=== PATIENT | female | born 1965 | race Caucasian/White ===

== ENCOUNTER → 2016-06-12 | Outpatient (CLI) | payer OTHER ==
[2016-06-12 09:58] LABS: Bilirubin, Delta 0.4 mg/dL (0.0-0.2); Total Bilirubin 0.6 mg/dL (0.2-1.3); Total Protein 7.2 g/dL (6.3-8.2)
--- NOTE | 2016-06-12 15:34 | NM ---
EXAMINATION TYPE: NM DatScan Brain SPECT DATE OF EXAM: 06/12/2016 2:43 PM COMPARISON: NONE HISTORY: TECHNIQUE: 10 drops of Lugol's solution was administered 1 hour prior to injection as a thyroid bloc macrina agent. After the administration of 4.4 mCi I-123 Ioflupane DaTscan. Images obtained [address] injection. SPECT images of the brain were acquired with axial and coronal reconstructions. FINDINGS: The axial SPECT images demonstrate normal background activity. Accounting for head tilt, t here appears to be slight asymmetrically blunted comma-shaped appearance of the left corpus striatum. IMPRESSION: Slightly blunted striatal activity on the left may indicate early changes of idiopathic P arkinson's disease or Parkinsonian syndrome.
== END | disposition home or self-care (01) ==
LOC: RADNMMAIN 09:12
PROVIDERS: ATTEND Psychiatry & Neurology Pain Medicine
DX: R25.1 Tremor, unspecified (principal); Z79.891 Long term (current) use of opiate analgesic
CPT/HCPCS: 80076; 82565; 78607; A9584

== ENCOUNTER → 2016-06-24 | Outpatient (CLI) | payer OTHER ==
[2016-06-24 12:08] LABS: Bilirubin, Delta 0.4 mg/dL (0.0-0.2); Total Bilirubin 0.6 mg/dL (0.2-1.3); Total Protein 6.8 g/dL (6.3-8.2)
[2016-06-24 12:10] LABS: CH 31.7; CHCM 32.7; HCT 36.6 % (34.0-46.0); HDW 2.92; HGB 12.1 gm/dL (11.4-16.0); MCH 32.1 pg (25.0-35.0); MCV 97.3 fL (80.0-100.0); Mean Platelet Volume 7.1; RBC 3.76 m/uL (3.80-5.40); RDW 13.2 % (11.5-15.5); WBC 3.9 k/uL (3.8-10.6)
[2016-06-24 12:32] LABS: Prothrombin Time 10.4 sec (9.0-12.0)
[2016-06-27 15:03] LABS: HCV Qualitative Result DETECTED (Not detected)
== END | disposition home or self-care (01) ==
LOC: LABWHC1 11:12
PROVIDERS: ATTEND Physician Assistant
DX: B18.2 Chronic viral hepatitis C (principal)
CPT/HCPCS: 36415; 80076; 82565; 85027; 85610; 87522; 87902

== ENCOUNTER → 2016-08-13 | Outpatient (CLI) | payer OTHER ==
[2016-08-28 12:37] LABS: Mis test requested (Blood) HEP C VIRUS NS5
== END | disposition home or self-care (01) ==
LOC: LABWHC1 10:34
PROVIDERS: ATTEND Physician Assistant
DX: B18.2 Chronic viral hepatitis C (principal)
CPT/HCPCS: 36415; 87902

== ENCOUNTER → 2016-11-13 | Outpatient (CLI) | payer OTHER | END | disposition home or self-care (01) | LOC: LABWHC1 09:13 | PROVIDERS: ATTEND Physician Assistant | DX: B18.2 Chronic viral hepatitis C (principal) | CPT/HCPCS: 36415; 82565; 84520 ==

== ENCOUNTER 2017-04-16 14:09 | Observation (INO) | payer OTHER ==
[2017-04-15 14:32] VITALS: BMI 43.6
[~2017-04-16 14:09] MED LIST: ACETAMINOPHEN TAB 500 MG TAB PO ONE; MELOXICAM 7.5 MG TAB PO ONE; ONDANSETRON 4 MG/2 ML VIAL IVP ONE; TRANEXAMIC ACID 1,000 MG in SODIUM CHLORIDE 0.9% 100 ML IVPB ONE; ceFAZolin IN SWFI 2 GM/20 ML SYRINGE IVP ONE
[2017-04-16] MEDS ORDERED: LIDOCAINE 1% 20 ML VIAL (10MG/ML) FOR IV START INTRADERMA ONE (14:45)
[2017-04-16] MEDS ORDERED: DEXAMETHASONE SOD PHOS (MDV) 100 MG/10 ML VIAL IV ONE (14:46)
[2017-04-16 14:47] LABS: Glucose,Whole Blood 98 mg/dL (75-99)
[2017-04-16] MEDS ORDERED: LACTATED RINGERS 1,000 ML IV ONE ×2 (14:47→17:27)
[2017-04-16] MEDS ORDERED: MIDAZOLAM 2 MG/2 ML VIAL ONE (16:05)
[2017-04-16] MEDS ORDERED: PROPOFOL 10 MG/ML 20 ML VIAL IV ONE (16:05)
[2017-04-16] MEDS ORDERED: fentaNYL (PF) 50 MCG/ML 2 ML AMP ONE (16:05)
[2017-04-16] MEDS ORDERED: HYDROmorphone (PF) 1 MG/ML ONE (16:05)
[2017-04-16] MEDS ORDERED: LIDOCAINE 1% INJ 10MG/ML (20 ML MDV) ONE (16:05)
[2017-04-16] MEDS ORDERED: ceFAZolin 1,000 MG in SODIUM CHLORIDE 0.9% 1,000 ML IRRIGATION ONE (16:49)
--- NOTE | 2017-04-16 17:44 | P.OP ---
Date of Procedure: 04/16/17 Procedure(s) Performed: PREOPERATIVE DIAGNOSES: Left ankle lateral malleolus fracture, Howard B bimalleolar equivalent fracture POSTOPERATIVE DIAGNOSES: Left ankle lateral malleolus fracture, Howard B bimalleolar equivalent PROCEDURES PERFORMED: 1. Left ankle lateral malleolus fracture open reduction and internal fixation ( 2. Examination of left ankle under anesthesia with fluoroscope ANESTHESIA: plate inspector: Apple Garber PA-C (assistance with exposure, hemostasis, retraction, fixation, closure, dressing, splint) COMPLICATIONS: None ESTIMATED BLOOD LOSS: Less than 10 mL. TOURNIQUET: approximately 30 minutes DISPOSITION: To post-anesthesia care unit INDICATIONS: The patient is a 51 year old female with a history of left ankle fracture approximately 1 month ago, who presents to the operating room today for examination of the ankle under anesthesia and likely ORIF. The fracture appears to be a bimalleolar equivalent fracture, with likely rupture of the deltoid ligament and a fracture of the lateral malleolus that is high enough to produce talar instability. I have discussed these issues with the patient, who wishes to proceed with the operative plan. I have explained the details of this surgery thoroughly and also explained the potential risks and complications. These are inclusive of, but not limited to: bleeding, infection , scarring, discomfort, blood vessel and nerve damage, stiffness, weakness, need for further surgery, failure to relieve symptoms, persistence or worsening of problems, , and other risks. The patient is aware of these risks and agrees to proceed with surgery. The consent form has been signed. PROCEDURE: After appropriate consent was obtained, the patient was taken to the operating room and placed supine on the operating table. General anesthesia was initiated. The left ankle was removed from the splint and examined and manipulated under fluoroscopic examination with a mini-C-arm device. The ankle was noted to be unstable, as evidenced by lateral talar shift of approximately 3 -4 mm with external rotation force on the foot. The lateral malleolus fracture was also noted to be displaced by 3 mm on the lateral view, especially. The limb was prepped and draped in the usual aseptic fashion with Chloraprep, and the patient was given IV antibiotics. The tourniquet was then inflated to 350 mmHg after careful exsanguination of the limb. Time out was called, confirming patient identity, side, procedure, and administration of antibiotics. Incision was created laterally, centered over the fracture site, for a length of approximately 4 inches. The incision was carried down through skin and into subcutaneous tissues, and blunt dissection then proceeded down to fascia. Fascia was split in line with the incision and the peroneal muscles were retracted posteriorly. The fracture site was exposed with subperiosteal dissection for as much exposure of the bone as was necessary. Fracture callus was evacuated and the interior of the fracture site was meticulously cleansed with irrigation and manual extraction of organizing tissue and bone debris. The fracture was minimally comminuted and oblique in orientation. The fracture was mobilized using a sanchez elevator and reduction was accomplished using a bone clamp, which was also used to secure the fracture. Anatomic reduction was accomplished. An interfragmentary screw, anterior to posterior, was placed using lag technique. Next, a precontoured fibular plate from [employer] was selected for size and side. The proximal holes were filled with 2 fully threaded 3.5 mm cortical screws with bicortical purchase. Additionally, 1 cancellous 4.0 screw was used just proximal to the fracture site. Distal holes were filled with 4 2.7 mm locking screws. No evidence of joint penetration on the mini-C-arm views was noted. The fracture was noted to be in anatomic position and stress testing under C- arm imaging showed no significant migration, shift, or tilt of the talus with external rotation stress, hindfoot inversion or eversion. Screw lengths were noted to be appropriate and the incision was then irrigated thoroughly using normal saline. Tourniquet was deflated and hemostasis was obtained using electrocautery. Fascial closure was performed with 0-Vicryl suture, subcutaneous closure with 2-0 Vicryl suture. Skin was closed with lay. Sterile dressing was applied and well padded, well molded short leg splint was applied with the ankle in neutral. Patient tolerated the procedure well and taken to recovery room in stable condition. Sponge and needle counts were correct.
[2017-04-16] MEDS ORDERED: HYDROcodone/APAP 5-325MG 1 EACH TAB PO PRN (17:45)
[2017-04-16] MEDS ORDERED: TEMAZEPAM 15 MG CAP PO PRN (17:45)
[2017-04-16] MEDS ORDERED: diphenhydrAMINE 25 MG CAP PO PRN (17:45)
[2017-04-16] MEDS ORDERED: SENNOSIDES-DOCUSATE SODIUM 1 EACH TAB PO PRN (17:45)
[2017-04-16] MEDS ORDERED: HYDROmorphone 0.5 MG/0.5 ML SYRINGE IVP PRN ×2 (17:45)
[2017-04-16] MEDS ORDERED: ONDANSETRON 4 MG/2 ML VIAL IVP PRN (17:45)
--- NOTE | 2017-04-16 17:46 | FL ---
FLUOROSCOPY 25 seconds of fluoroscopy time were utilized during internal fixation of the left ankle. 3 images doc ument the procedure.
[2017-04-16] MEDS: HYDROmorphone 1 MG/ML 1 ML SYRINGE IVP ONE ×2 (18:11→18:16)
[2017-04-16] MEDS: LACTATED RINGERS 1,000 ML IV SCH (22:10)
[2017-04-16] MEDS: DILTIAZEM ORAL 30 MG TAB PO SCH (22:12)
[2017-04-16] MEDS: levETIRAcetam 500 MG TAB PO SCH (22:13)
[2017-04-16] MEDS: lamoTRIgine 100 MG TAB PO SCH (22:13)
[2017-04-16] MEDS: PRIMIDONE 250 MG TAB PO SCH (22:13)
[2017-04-16] MEDS: PROCHLORPERAZINE 5 MG TAB PO SCH (22:14)
[2017-04-16] MEDS: SODIUM BICARBONATE TAB 650 MG TAB PO SCH (22:14)
[2017-04-16] MEDS: GABAPENTIN 400 MG CAP PO SCH (22:14)
[2017-04-16] MEDS: LACTULOSE 20 GM/30 ML CUP PO SCH (22:15)
[2017-04-16] MEDS: HYDROcodone/APAP 5-325MG 1 EACH TAB PO PRN (22:23)
[2017-04-16] MEDS: TOPIRAMATE 100 MG TAB PO SCH (22:24)
[2017-04-16] MEDS: HYDROmorphone 0.5 MG/0.5 ML SYRINGE IVP PRN (23:59)
[2017-04-17] MEDS: ceFAZolin 3 GM in SODIUM CHLORIDE 0.9% 100 ML IVPB SCH ×2 (01:04→07:47)
[2017-04-17] MEDS: HYDROmorphone 0.5 MG/0.5 ML SYRINGE IVP PRN (03:01)
[2017-04-17] MEDS: LACTATED RINGERS 1,000 ML IV SCH (04:22)
[2017-04-17] MEDS: HYDROcodone/APAP 5-325MG 1 EACH TAB PO PRN ×2 (04:59→10:10)
[2017-04-17] MEDS: LACTULOSE 20 GM/30 ML CUP PO SCH (07:49)
[2017-04-17] MEDS: DILTIAZEM ORAL 30 MG TAB PO SCH (07:50)
[2017-04-17] MEDS: PRIMIDONE 250 MG TAB PO SCH (07:50)
[2017-04-17] MEDS: lamoTRIgine 100 MG TAB PO SCH (07:50)
[2017-04-17] MEDS: levETIRAcetam 500 MG TAB PO SCH (07:51)
[2017-04-17] MEDS: GABAPENTIN 400 MG CAP PO SCH (07:51)
--- NOTE | 2017-04-17 07:52 | P.DS ---
Providers Date of admission: 04/17/17 04:56 Expected date of discharge: 04/17/17 Attending physician: Kal Hannah Consults: 04/16/17 17:45 Consult Physician Routine Consulting Provider: Wale Fierro Consult Reason/Comments: medical management Do you want consulting provider notified?: Yes Primary care physician: Tammy Leon Charbal - Discharge Diagnosis(es) (1) Closed fracture of left distal fibula Current Visit: No Status: Acute Hospital Course: This is a 51-year-old female with history of left ankle fracture approximately 3 -4 weeks ago. She had some displacement of her ankle mortise there was recommended that she have open reduction showed fixation of the left ankle. She is admitted to [facility] on 04/16/2017 for open reduction internal fixation of the left ankle. The procedures performed without difficulty or sequelae. The patient is doing well postoperatively. We are planning discharge to inpatient rehab today if cleared medically. Please see med rec for accurate list of home medications. Plan - Discharge Summary Discharge Rx Participant: No New Discharge Prescriptions: New HYDROcodone/APAP 7.5-325MG [[place] 7.5-325] 1 - 2 tab PO Q4-6H PRN #90 tab PRN Reason: Pain Sennosides-Docusate Sodium [Senokot-S] 1 tab PO BID #60 tablet No Action lamoTRIgine [LaMICtal] 100 mg PO BID Omeprazole [PriLOSEC] 20 mg PO BID Sodium Bicarbonate Tab 650 mg PO BID Ergocalciferol [Vitamin D2 (DRISDOL)] 50,000 unit PO Q14D Topiramate [Topamax] 100 mg PO QID Prochlorperazine [Compazine] 5 mg PO BID Primidone [Mysoline] 250 mg PO BID PARoxetine [Paxil] 10 mg PO DAILY levETIRAcetam [Keppra] 500 mg PO BID Gabapentin [Neurontin] 400 mg PO TID Folic Acid 1 mg PO DAILY Diltiazem HCl 90 mg PO HS Calcitriol [Rocaltrol] 0.25 mcg PO DIRECTED Baclofen 10 mg PO BID Dexamethasone [Hexadrol] 1 mg PO DAILY #21 tablet Acetaminophen Tab [Tylenol] 650 mg PO Q6HR PRN tab PRN Reason: Pain Scale 4 To 5 HYDROcodone/APAP 7.5-325MG [[place] 7.5-325] 1 each PO Q6H PRN #20 tab PRN Reason: Pain Scale 7 To 10 Lactulose [Cephulac] 30 gm PO TID ml rOPINIRole HCL [Requip] 0.5 mg PO TID #0 Discharge Medication List lamoTRIgine [LaMICtal] 100 mg PO BID 06/02/14 [History] Omeprazole [PriLOSEC] 20 mg PO BID 12/04/14 [History] Baclofen 10 mg PO BID 03/13/17 [History] Calcitriol [Rocaltrol] 0.25 mcg PO DIRECTED 03/13/17 [History] Diltiazem HCl 90 mg PO HS 03/13/17 [History] Ergocalciferol [Vitamin D2 (DRISDOL)] 50,000 unit PO Q14D 03/13/17 [History] Folic Acid 1 mg PO DAILY 03/13/17 [History] Gabapentin [Neurontin] 400 mg PO TID 03/13/17 [History] PARoxetine [Paxil] 10 mg PO DAILY 03/13/17 [History] Primidone [Mysoline] 250 mg PO BID 03/13/17 [History] Prochlorperazine [Compazine] 5 mg PO BID 03/13/17 [History] Sodium Bicarbonate Tab 650 mg PO BID 03/13/17 [History] Topiramate [Topamax] 100 mg PO QID 03/13/17 [History] levETIRAcetam [Keppra] 500 mg PO BID 03/13/17 [History] Dexamethasone [Hexadrol] 1 mg PO DAILY #21 tablet 03/16/17 [Rx] Acetaminophen Tab [Tylenol] 650 mg PO Q6HR PRN tab 03/23/17 [Rx] HYDROcodone/APAP 7.5-325MG [[place] 7.5-325] 1 each PO Q6H PRN #20 tab 03/23/17 [ Rx] Lactulose [Cephulac] 30 gm PO TID ml 03/23/17 [Rx] rOPINIRole HCL [Requip] 0.5 mg PO TID #0 03/23/17 [Rx] HYDROcodone/APAP 7.5-325MG [[place] 7.5-325] 1 - 2 tab PO Q4-6H PRN #90 tab [Rx] Sennosides-Docusate Sodium [Senokot-S] 1 tab PO BID #60 tablet 04/16/17 [Rx] Follow up Appointment(s)/Referral(s): Kal Hannah MD [STAFF PHYSICIAN] - 2 Weeks Activity/Diet/Wound Care/Special Instructions: Non wt bearing LLE w walker. Keep splint intact. Discharge Disposition: TRANSFER TO SNF/ECF
[2017-04-17] MEDS: PROCHLORPERAZINE 5 MG TAB PO SCH (07:53)
[2017-04-17] MEDS: SODIUM BICARBONATE TAB 650 MG TAB PO SCH (07:53)
[2017-04-17] MEDS: TOPIRAMATE 100 MG TAB PO SCH ×2 (07:54→12:29)
[2017-04-17] MEDS ORDERED: DEXAMETHASONE 0.5 MG TAB PO SCH (09:00)
[2017-04-17] MEDS ORDERED: PARoxetine 10 MG TAB PO SCH (09:00)
[2017-04-17] MEDS ORDERED: FOLIC ACID 1 MG TAB PO SCH (12:00)
[2017-04-17] MEDS ORDERED: ONDANSETRON 4 MG TAB PO PRN (12:59)
[2017-04-17 14:44] VITALS: BP 99/65; PULSE 81; RESP 16; TEMP 98
[2017-04-17] MEDS ORDERED: FAMOTIDINE 20 MG TAB PO SCH ×2 (15:15→21:00)
--- NOTE | 2017-04-17 16:40 | P.CONS ---
History of Present Illness - Reason for Consult COPD fibromyalgia - History of Present Illness Patient is a 52-year-old female admitted for left lateral analisa left fracture underwent surgical correction. Patient was comparing of epigastric abdominal discomfort and nausea patient is already taking Prilosec at home patient will be given Pepcid here. Patient is otherwise clinically doing well denied any fever, chills, nausea, vomiting patient did pass gas patient and dysuria patient has multiple other medical problems I reviewed the medications patient is already in that he to be discharged in my opinion and patient is okay from medical perspective to be discharged, will review the medications discharge medications. We'll correct her discharge medication reconciliation as needed. Review of Systems REVIEW OF SYSTEMS: CONSTITUTIONAL: No fever, no malaise, no fatigue. HEENT: No recent visual problems or hearing problems. Denied any sore throat. CARDIOVASCULAR: No chest pain, orthopnea, PND, no palpitations, no syncope. PULMONARY: No shortness of breath, no cough, no hemoptysis. GASTROINTESTINAL: Gastric abdominal discomfort NEUROLOGICAL: No headaches, no weakness, no numbness. HEMATOLOGICAL: Denies any bleeding or petechiae. GENITOURINARY: Denies any burning micturition, frequency, or urgency. MUSCULOSKELETAL/RHEUMATOLOGICAL: Pain in the ankle area where she underwent surgical correction. ENDOCRINE: Denies any polyuria or polydipsia. The rest of the 14-point review of systems is negative. Past Medical History Past Medical History: COPD, Fibromyalgia, GERD/Reflux, GI Bleed, Hyperlipidemia , Hypertension, Neurologic Disorder, Osteoarthritis (OA), Osteoarthritis (OA), Renal Disease, Seizure Disorder, Sleep Apnea/CPAP/BIPAP, Supraventricular Tachycardia (SVT), Syncope Additional Past Medical History / Comment(s): hep c, MS, carpal tunnel, FX LT ANKLE History of Any Multi-Drug Resistant Organisms: None Reported Past Surgical History: Section, Cholecystectomy, Joint Replacement, Orthopedic Surgery, Tonsillectomy Additional Past Surgical History / Comment(s): kidney and liver biopsy, CSECT X4 , 2 TOTAL KNEE, 7 ARTHROSCOPIC KNEE SX ON RIGHT AND 1 ON LEFT Past Anesthesia/Blood Transfusion Reactions: Motion Sickness Additional Past Anesthesia/Blood Transfusion Reaction / Comm: claustrophobic Past Psychological History: Anxiety Additional Psychological History / Comment(s): lives in studio apt,lives on disabilty Smoking Status: Never smoker Past Alcohol Use History: None Reported Additional Past Alcohol Use History / Comment(s): started smoking at age 15, smoked 2-3 cig per day quit 1996 Past Drug Use History: None Reported - Past Family History Father Family Medical History: Hypertension, Osteoarthritis (OA) Mother Family Medical History: Cancer, Dementia, Deep Vein Thrombosis (DVT), Hypertension Additional Family Medical History / Comment(s): breast ca, liver ca, at age 63. Several blood clots Medications and Allergies Home Medications Medication Instructions Recorded Confirmed Type lamoTRIgine [LaMICtal] 100 mg PO BID 06/02/14 04/17/17 History Omeprazole [PriLOSEC] 20 mg PO BID 12/04/14 04/17/17 History Baclofen 10 mg PO BID 03/13/17 04/17/17 History Calcitriol [Rocaltrol] 0.25 mcg PO DIRECTED 03/13/17 04/17/17 History Diltiazem HCl 90 mg PO HS 03/13/17 04/17/17 History Ergocalciferol [Vitamin D2 50,000 unit PO Q14D 03/13/17 04/17/17 History (DRISDOL)] Folic Acid 1 mg PO DAILY 03/13/17 04/17/17 History Gabapentin [Neurontin] 400 mg PO TID 03/13/17 04/17/17 History PARoxetine [Paxil] 10 mg PO DAILY 03/13/17 04/17/17 History Primidone [Mysoline] 250 mg PO BID 03/13/17 04/17/17 History Prochlorperazine [Compazine] 5 mg PO BID 03/13/17 04/17/17 History Sodium Bicarbonate Tab 650 mg PO BID 03/13/17 04/17/17 History Topiramate [Topamax] 100 mg PO QID 03/13/17 04/17/17 History levETIRAcetam [Keppra] 500 mg PO BID 03/13/17 04/17/17 History Dexamethasone [Hexadrol] 1 mg PO DAILY #21 tablet 03/16/17 04/17/17 Rx Acetaminophen Tab [Tylenol] 650 mg PO Q6HR PRN tab 03/23/17 04/17/17 Rx HYDROcodone/APAP 7.5-325MG [[place] 1 each PO Q6H PRN #20 tab 03/23/17 04/17/17 Rx 7.5-325] Lactulose [Cephulac] 30 gm PO TID ml 03/23/17 04/17/17 Rx rOPINIRole HCL [Requip] 0.5 mg PO TID #0 03/23/17 04/17/17 Rx HYDROcodone/APAP 7.5-325MG [[place] 1 - 2 tab PO Q4-6H PRN #90 tab 04/16/17 Rx 7.5-325] Sennosides-Docusate Sodium 1 tab PO BID #60 tablet 04/16/17 Rx [Senokot-S] Allergies Allergy/AdvReac Type Severity Reaction Status Date / Time adhesive Allergy Rash/Hives Verified 04/17/17 06:48 azithromycin [From Zithromax] AdvReac Itching Verified 04/17/17 06:48 metoclopramide HCl AdvReac Swelling Verified 04/17/17 06:48 [From Reglan] Physical Exam Vitals: Vital Signs Temp Pulse Resp BP Pulse Ox 04/17/17 14:43 98.0 F 81 16 99/65 97 04/17/17 07:05 98.1 F 82 17 131/85 99 04/17/17 00:45 97.6 F 86 16 116/65 99 04/16/17 21:15 94 139/74 04/16/17 21:00 95 136/75 04/16/17 20:45 101 H 131/70 04/16/17 20:30 104 H 133/74 04/16/17 20:15 106 H 145/89 04/16/17 20:00 114 H 129/81 04/16/17 19:45 105 H 140/77 04/16/17 19:30 108 H 134/73 04/16/17 19:15 97.4 F L 111 H 16 152/72 97 04/16/17 18:46 112 H 16 154/85 100 04/16/17 18:30 116 H 16 171/97 92 L 04/16/17 18:15 117 H 16 161/97 92 L 04/16/17 18:00 110 H 18 159/91 98 04/16/17 17:46 97.7 F 108 H 12 154/84 108 H Intake and Output 04/17/17 04/17/17 04/17/17 06:59 14:59 22:59 Intake Total 1250 Output Total 600 Balance 1250 -600 Intake: Intake, IV Titration 1000 Amount Lactated Ringers 1,000 ml 1000 @ 100 mls/hr IV .Q10H [facility] Rx#:[id number] Oral 250 Output: Urine 600 Other: Voiding Method Bedside Commode # Voids 3 # Bowel Movements 3 Weight 118.841 kg Patient Weight 04/18/17 06:59 Weight 118.841 kg PHYSICAL EXAMINATION: GENERAL: The patient is alert and oriented x3, not in any acute distress. Well developed, well nourished. HEENT: Pupils are round and equally reacting to light. EOMI. No scleral icterus. No conjunctival pallor. Normocephalic, atraumatic. No pharyngeal erythema. No thyromegaly. CARDIOVASCULAR: S1 and S2 present. No murmurs, rubs, or gallops. PULMONARY: Chest is clear to auscultation, no wheezing or crackles. ABDOMEN: Soft, nontender, nondistended, normoactive bowel sounds. No palpable organomegaly. MUSCULOSKELETAL: Deferred to orthopedic surgery EXTREMITIES: No cyanosis, clubbing, or pedal edema. NEUROLOGICAL: Gross neurological examination did not reveal any focal deficits. SKIN: No rashes. Assessment and Plan Plan: #1 left ankle lateral malleolus fracture open reduction and internal fixation: Pain management and due to prophylaxis as per primary service and the patient is being discharged today. #2 fibromyalgia #3 gastric esophageal reflux disease #4 hyperlipidemia #5 hypertension #6 seizure disorder #7 obesity does have history of sleep apnea #8 hepatitis C for which patient will need to follow gastric gastroneurology as an outpatient Patient was seen and examined patient is okay to be discharged from medical perspective reviewed the discharge medication reconciliation appropriate changes were made
== END 2017-04-17 16:05 ==
LOC: OR 14:09 → 3SUR 17:44 → OR 04-17 04:56
PROVIDERS: ADMIT Orthopaedic Surgery; ATTEND Orthopaedic Surgery
DX: S82.62XA Displaced fracture of lateral malleolus of left fibula, initial encounter for closed fracture (principal); R10.13 Epigastric pain; R11.0 Nausea; M79.7 Fibromyalgia; K21.9 Gastro-esophageal reflux disease without esophagitis; I12.9 Hypertensive chronic kidney disease with stage 1 through stage 4 chronic kidney disease, or unspecified chronic kidney disease; N18.9 Chronic kidney disease, unspecified; G40.909 Epilepsy, unspecified, not intractable, without status epilepticus; G35 Multiple sclerosis; E78.5 Hyperlipidemia, unspecified; B19.20 Unspecified viral hepatitis C without hepatic coma; J44.9 Chronic obstructive pulmonary disease, unspecified; F41.9 Anxiety disorder, unspecified; I47.1 Supraventricular tachycardia; M19.90 Unspecified osteoarthritis, unspecified site; G47.33 Obstructive sleep apnea (adult) (pediatric); Z99.89 Dependence on other enabling machines and devices; Y92.009 Unspecified place in unspecified non-institutional (private) residence as the place of occurrence of the external cause; W19.XXXA Unspecified fall, initial encounter; Z87.891 Personal history of nicotine dependence; Z79.52 Long term (current) use of systemic steroids; Z79.899 Other long term (current) drug therapy; Z88.1 Allergy status to other antibiotic agents; Z88.8 Allergy status to other drugs, medicaments and biological substances; Z91.048 Other nonmedicinal substance allergy status
CPT/HCPCS: 27792; 97161; 84703; 73600; G0378; C1713; S0183 ×2; J2250; J0690 ×3; J2405 ×2; J2001; J3010; J1170 ×3; J1100; J2704

== ENCOUNTER → 2017-09-11 | Outpatient (CLI) | payer OTHER | END | disposition home or self-care (01) | LOC: LABWHC1 14:43 | PROVIDERS: ATTEND Physician Assistant | DX: B18.2 Chronic viral hepatitis C (principal) | CPT/HCPCS: 36415; 82565 ==

== ENCOUNTER 2017-12-20 16:11 | Emergency (ER) | payer OTHER ==
[2017-12-20 16:29] VITALS: BP 130/83; PULSE 96; RESP 18; TEMP 97.9
[2017-12-20] MEDS ORDERED: HYDROcodone/APAP 7.5-325MG 1 EACH TAB PO ONE (17:17)
--- NOTE | 2017-12-20 17:25 | ED ---
Lower Extremity Injury HPI - General Source: patient Mode of arrival: wheelchair Limitations: no limitations <Donna Geiger - Last Filed: 12/20/17 19:38> <Veronica Márquez - Last Filed: 12/20/17 20:09> - General Chief Complaint: Extremity Injury, Lower Stated Complaint: lt foot/ankle pain Time Seen by Provider: 12/20/17 16:45 - History of Present Illness Initial Comments: 52-year-old female patient presents the emergency department today for evaluation of increased pain and swelling to the left ankle. Patient states that in March 2017 she fractured her ankle and had to have surgery. Patient states that over the last couple of weeks she has had increased pain and swelling. Patient states that she went to a concert and started for a long period of time and has noticed an increase in her symptoms since then. Patient states that the pain is located in the left lateral ankle. She denies any numbness or tingling to the foot. Denies any redness. Denies any fevers or chills. Denies any calf pain. Patient denies any headache, neck pain, back pain , chest pain, shortness of breath, dizziness, weakness, abdominal pain, nausea, vomiting, or difficulties with bowel movements or urination. (Donna Geiger ) - Related Data Home Medications Medication Instructions Recorded Confirmed lamoTRIgine [LaMICtal] 100 mg PO BID 06/02/14 04/17/17 Omeprazole [PriLOSEC] 20 mg PO BID 12/04/14 04/17/17 Baclofen 10 mg PO BID 03/13/17 04/17/17 Calcitriol [Rocaltrol] 0.25 mcg PO DIRECTED 03/13/17 04/17/17 Diltiazem HCl 90 mg PO HS 03/13/17 04/17/17 Ergocalciferol [Vitamin D2 50,000 unit PO Q14D 03/13/17 04/17/17 (DRISDOL)] Folic Acid 1 mg PO DAILY 03/13/17 04/17/17 Gabapentin [Neurontin] 400 mg PO TID 03/13/17 04/17/17 PARoxetine [Paxil] 10 mg PO DAILY 03/13/17 04/17/17 Primidone [Mysoline] 250 mg PO BID 03/13/17 04/17/17 Prochlorperazine [Compazine] 5 mg PO BID 03/13/17 04/17/17 Sodium Bicarbonate Tab 650 mg PO BID 03/13/17 04/17/17 Topiramate [Topamax] 100 mg PO QID 03/13/17 04/17/17 levETIRAcetam [Keppra] 500 mg PO BID 03/13/17 04/17/17 Previous Rx's Medication Instructions Recorded Dexamethasone [Hexadrol] 1 mg PO DAILY #21 tablet 03/16/17 Acetaminophen Tab [Tylenol] 650 mg PO Q6HR PRN tab 03/23/17 HYDROcodone/APAP 7.5-325MG [[place] 1 each PO Q6H PRN #20 tab 03/23/17 7.5-325] Lactulose [Cephulac] 30 gm PO TID ml 03/23/17 rOPINIRole HCL [Requip] 0.5 mg PO TID #0 03/23/17 HYDROcodone/APAP 7.5-325MG [[place] 1 - 2 tab PO Q4-6H PRN #90 tab 04/16/17 7.5-325] Sennosides-Docusate Sodium 1 tab PO BID #60 tablet 04/16/17 [Senokot-S] Allergies Allergy/AdvReac Type Severity Reaction Status Date / Time adhesive Allergy Rash/Hives Verified 12/20/17 16:26 azithromycin [From Zithromax] AdvReac Itching Verified 12/20/17 16:26 metoclopramide HCl AdvReac Swelling Verified 12/20/17 16:26 [From Reglan] Review of Systems ROS Other: All systems not noted in ROS Statement are negative. <Donna Geiger M - Last Filed: 12/20/17 19:38> ROS Other: All systems not noted in ROS Statement are negative. <Veronica Márquez - Last Filed: 12/20/17 20:09> ROS Statement: Those systems with pertinent positive or pertinent negative responses have been documented in the HPI. Past Medical History Past Medical History: COPD, Fibromyalgia, GERD/Reflux, GI Bleed, Hyperlipidemia , Hypertension, Neurologic Disorder, Osteoarthritis (OA), Osteoarthritis (OA), Renal Disease, Seizure Disorder, Sleep Apnea/CPAP/BIPAP, Supraventricular Tachycardia (SVT), Syncope Additional Past Medical History / Comment(s): hep c, MS, carpal tunnel, FX LT ANKLE History of Any Multi-Drug Resistant Organisms: None Reported Past Surgical History: Section, Cholecystectomy, Joint Replacement, Orthopedic Surgery, Tonsillectomy Additional Past Surgical History / Comment(s): kidney and liver biopsy, CSECT X4 , 2 TOTAL KNEE, 7 ARTHROSCOPIC KNEE SX ON RIGHT AND 1 ON LEFT Past Anesthesia/Blood Transfusion Reactions: Motion Sickness Additional Past Anesthesia/Blood Transfusion Reaction / Comment(s): claustrophobic Past Psychological History: Anxiety Smoking Status: Never smoker Past Alcohol Use History: None Reported Past Drug Use History: None Reported - Past Family History Father Family Medical History: Hypertension, Osteoarthritis (OA) Mother Family Medical History: Cancer, Dementia, Deep Vein Thrombosis (DVT), Hypertension Additional Family Medical History / Comment(s): breast ca, liver ca, at age 63. Several blood clots <Donna Geiger M - Last Filed: 12/20/17 19:38> General Exam Limitations: no limitations General appearance: alert, in no apparent distress, other (This is a well- developed, well-nourished adult female patient in no acute distress. Vital signs upon presentation are temperature 97.9, pulse 96, respirations 18, blood pressure 130/83, pulse ox 100% on room air.) Eye exam: Present: normal appearance, PERRL, EOMI. Absent: scleral icterus, conjunctival injection, periorbital swelling ENT exam: Present: normal exam, normal oropharynx, mucous membranes moist Respiratory exam: Present: normal lung sounds bilaterally. Absent: respiratory distress, wheezes, rales, rhonchi, stridor Cardiovascular Exam: Present: regular rate, normal rhythm, normal heart sounds. Absent: systolic murmur, diastolic murmur, rubs, gallop, clicks Extremities exam: Present: full ROM, normal capillary refill, other (Left lateral ankle swelling. No erythema. No tenderness. Skin is otherwise pink, warm , and dry. Pedal and post tibial pulses are 2+ and equal bilaterally. ). Absent : normal inspection, tenderness, pedal edema, joint swelling, calf tenderness Neurological exam: Present: alert, oriented X3, CN II-XII intact Psychiatric exam: Present: normal affect, normal mood Skin exam: Present: warm, dry, intact, normal color. Absent: rash <Bantle,Donna M - Last Filed: 12/20/17 19:38> Vital Signs 12/20/17 16:26 Temperature 97.9 F Pulse Rate 96 Respiratory 18 Rate Blood Pressure 130/83 O2 Sat by Pulse 100 Oximetry Medical Decision Making - Radiology Data Radiology results: report reviewed, image reviewed <Donna Geiger - Last Filed: 12/20/17 19:38> <Veronica Márquez - Last Filed: 12/20/17 20:09> - Medical Decision Making 52-year-old female patient presented to the emergency department today for evaluation of left ankle pain and swelling. Physical examination did reveal old surgical scar with some mild soft tissue swelling noted around the left lateral malleolus. Neurovascular status was intact. X-ray was obtained and showed no acute fractures or dislocations. As patient symptoms did start after standing up for long. At a concert do believe her pain is related to dependent edema and inflammation. Symptoms are not consistent with DVT. She'll be given Chiki wrap for comfort and support. She is instructed to rest, ice, and elevate the extremity. She is instructed to follow-up with her primary care physician and orthopedic surgeon for further evaluation. Return parameters were discussed in detail. She verbalizes understanding and agrees with this plan. (Donna Geiger) The patient was seen and evaluated independently by the nurse practitioner, we discussed the patient's care and I agree with her evaluation and treatment plan as recommended. I did not see or evaluate the patient independently. (Veronica Márquez) - Radiology Data 3 views of the left ankle were obtained. There is a plate with screws 6 and the distal fibula. Ankle mortise is anatomic. Joint spaces are fairly normal. Impression by Dr. Santiago shows no acute Amount of the left ankle. (Donna Geiger) Disposition Is patient prescribed a controlled substance at d/c from ED?: No Time of Disposition: 18:40 <Donna Geiger - Last Filed: 12/20/17 19:38> <Veronica Márquez - Last Filed: 12/20/17 20:09> Clinical Impression: Left ankle swelling Disposition: HOME SELF-CARE Condition: Good Instructions: Swollen Ankle Joint (ED) Additional Instructions: Rest, ice, elevate the extremity. Continue taking home pain medication as directed. Follow-up with your orthopedic surgeon for reevaluation. Return here immediately for any new, worsening, or concerning symptoms. Referrals: Caroline Munoz MD [Primary Care Provider] - 1-2 days
--- NOTE | 2017-12-20 18:25 | XR ---
EXAMINATION TYPE: XR ankle complete LT DATE OF EXAM: 12/20/2017 COMPARISON: 03/18/2017 HISTORY: Pain and swelling TECHNIQUE: 3 views FINDINGS: There is a plate with screws fixing the distal fibula. Ankle mortise is anatomic. Joint spa rigoberto are fairly normal. IMPRESSION: No acute abnormality of the left ankle.
== END 2017-12-20 18:58 | disposition home or self-care (01) ==
LOC: EC 16:11
DX: M25.472 Effusion, left ankle (principal); M25.572 Pain in left ankle and joints of left foot; M79.7 Fibromyalgia; K21.9 Gastro-esophageal reflux disease without esophagitis; E78.5 Hyperlipidemia, unspecified; I10 Essential (primary) hypertension; G40.909 Epilepsy, unspecified, not intractable, without status epilepticus; G47.30 Sleep apnea, unspecified; Z99.89 Dependence on other enabling machines and devices; G35 Multiple sclerosis; F41.9 Anxiety disorder, unspecified; Z79.899 Other long term (current) drug therapy; Z88.1 Allergy status to other antibiotic agents; Z88.8 Allergy status to other drugs, medicaments and biological substances; Z91.048 Other nonmedicinal substance allergy status
CPT/HCPCS: 99283

== ENCOUNTER → 2017-12-24 | Outpatient (CLI) | payer OTHER ==
[2017-12-24 16:00] VITALS: BP 106/75; PULSE 98; RESP 14; TEMP 98.7
--- NOTE | 2017-12-24 16:02 | P.HPBAR ---
Bariatric H&P - History & Physicial H&P Date: 12/24/17 History & Physicial: Visit/CC: Patient initial contact: Initial weight: Initial weight in pounds: Height: Initial BMI: Last weight: Current weight: Current weight in pounds: Current BMI: Tyler body weight (based on NIH guidelines): Excess body weight loss: The patient is a 52 year-old F who presents for Bariatric Assessment. The patient presents today to the bariatric clinic as a new patient. Patient is interested in sleeve gastrectomy. Patient is known to our service from previous laparoscopic cholecystectomy. Has a history of Parkinson's, hypertension, GERD, hypercholesterolemia, asthma, COPD. Denies DVT or dysphagia. History of ulcers in the distant past. Her Parkinson's has been worsening with tremors. She is scheduled for a deep brain stimulator in January at [facility]. Review of Systems The patient denies any acute changes in vision or hearing, no dysphagia or odynophagia, no chest pain or shortness of breath, no dysuria or hematuria, no headache, no runny nose, no rectal bleeding or melena, no unexplained weight loss Past Medical History Past Medical History: COPD, Fibromyalgia, GERD/Reflux, GI Bleed, Hyperlipidemia , Hypertension, Neurologic Disorder, Osteoarthritis (OA), Osteoarthritis (OA), Renal Disease, Seizure Disorder, Sleep Apnea/CPAP/BIPAP, Supraventricular Tachycardia (SVT), Syncope Additional Past Medical History / Comment(s): hep c, MS, carpal tunnel, FX LT ANKLE, Parkinsons Disease, (patient states she will undergo Deep Brain Stimulation (chip implanted into brain to promote stimulation and treat Parkinson's) in January 2018. This is a 2 part procedure (02/08 & 02/15), claustrophobic History of Any Multi-Drug Resistant Organisms: None Reported Past Surgical History: Section, Cholecystectomy, Joint Replacement, Orthopedic Surgery, Tonsillectomy Additional Past Surgical History / Comment(s): kidney and liver biopsy, CSECT X4 , 2 TOTAL KNEE, 7 ARTHROSCOPIC KNEE SX ON RIGHT AND 1 ON LEFT, (patient states she will undergo D.B.S.(Deep Brain Stimulation) whereas a chip will be implanted into brain to promote stimulation and treat Parkinson's) in January 2018. This is a 2 part procedure (02/08 & 02/15) Past Anesthesia/Blood Transfusion Reactions: Motion Sickness Additional Past Anesthesia/Blood Transfusion Reaction / Comm: claustrophobic Past Psychological History: Anxiety Additional Psychological History / Comment(s): lives in studio apt,lives on disabilty Smoking Status: Never smoker Past Alcohol Use History: None Reported Additional Past Alcohol Use History / Comment(s): started smoking at age 15, smoked 2-3 cig per day quit 1996 Past Drug Use History: None Reported - Past Family History Father Family Medical History: Hypertension, Osteoarthritis (OA) Mother Family Medical History: Cancer, Dementia, Deep Vein Thrombosis (DVT), Hypertension Additional Family Medical History / Comment(s): breast ca, liver ca, at age 63. Several blood clots Surgical - Exam Physical exam: General: Well-developed, well-nourished HEENT: Normocephalic, sclerae nonicteric Abdomen: Nontender, nondistended Extremities: No edema Neuro: Alert and oriented Bariatric Assessment & Plan (1) Morbid obesity Narrative/Plan: 52-year-old female with morbid obesity. Patient interested in sleeve gastrectomy. Surgical risks and benefits of both sleeve gastrectomy and gastric bypass reviewed in detail. Will require preoperative clearance by primary care and neurosurgery. Tentatively plan upper endoscopy in the near future. The risks of bleeding, infection, stenosis, stricture, leak, abscess , fistula formation, peritonitis, poor weight loss, reflux, vomiting, conversion to an open procedure, aborting sleeve gastrectomy, NM, PE, DVT, and were discussed. The patient understands and wishes to proceed. Status: Acute Bariatric Checklist Checklist: Plan: Checklist: EGD: 1. Hiatal hernia: 2. H. Pylori: HgbA1c: Vitamin D: Smoking: Never smoker Primary care physician referral: Psychiatry clearance: Cardiology clearance: Sleep study: Diet journal: VTE risk score: VTE risk level: Rehab needs at discharge:
== END | disposition home or self-care (01) ==
LOC: BARWHC3 15:10
PROVIDERS: ATTEND Surgery
DX: E66.01 Morbid (severe) obesity due to excess calories (principal); Z87.891 Personal history of nicotine dependence
CPT/HCPCS: 99211

== ENCOUNTER 2018-01-15 08:09 | Day surgery (SDC) | payer OTHER ==
[2018-01-14 13:28] VITALS: BMI 38.2
[~2018-01-15 08:09] MED LIST changes: -ACETAMINOPHEN TAB 500 MG TAB PO ONE; +LACTATED RINGERS 1,000 ML IV SCH; +LIDOCAINE 1% 20 ML VIAL (10MG/ML) FOR IV START INTRADERMA PRN; -MELOXICAM 7.5 MG TAB PO ONE; -ONDANSETRON 4 MG/2 ML VIAL IVP ONE; -TRANEXAMIC ACID 1,000 MG in SODIUM CHLORIDE 0.9% 100 ML IVPB ONE; -ceFAZolin IN SWFI 2 GM/20 ML SYRINGE IVP ONE
[2018-01-15 08:21] VITALS: RESP 16; TEMP 98.4
[2018-01-15] MEDS ORDERED: LIDOCAINE 1% INJ 10MG/ML (20 ML MDV) ONE (09:00)
[2018-01-15] MEDS ORDERED: PROPOFOL 10 MG/ML 20 ML VIAL IV ONE (09:00)
--- NOTE | 2018-01-15 09:02 | P.GSHP ---
History of Present Illness H&P Date: 01/15/18 Chief Complaint: GERD Patient here today for upper endoscopy. Patient seen in the bariatric clinic recently for sleeve gastrectomy. Patient has mild reflux. Takes antiacids. She does have a history of ulcers in the past. Past Medical History Past Medical History: Asthma, COPD, GERD/Reflux, Hyperlipidemia, Hypertension, Liver Disease, Neurologic Disorder, Osteoarthritis (OA), Osteoarthritis (OA), Renal Disease, Seizure Disorder, Sleep Apnea/CPAP/BIPAP, Supraventricular Tachycardia (SVT), Syncope Additional Past Medical History / Comment(s): hx hepatitis c (treated), possible MS, kiersten carpal tunnel, Parkinsons Disease, (patient states she will undergo Deep Brain Stimulation (chip implanted into brain to promote stimulation and treat Parkinson's) in January 2018. claustrophobic, last seizure 3 yrs ago, hx ulcers, anemia, no cpap used, chronic kidney disease History of Any Multi-Drug Resistant Organisms: None Reported Past Surgical History: Section, Cholecystectomy, Joint Replacement, Orthopedic Surgery, Tonsillectomy Additional Past Surgical History / Comment(s): kidney and liver biopsy, CSECT X4 , knee replacement rt knee x2, 7 ARTHROSCOPIC KNEE 5 X ON RIGHT AND 1 ON LEFT, Past Anesthesia/Blood Transfusion Reactions: Motion Sickness Additional Past Anesthesia/Blood Transfusion Reaction / Comment(s): claustrophobic Smoking Status: Never smoker - Past Family History Brother(s) Family Medical History: Pulmonary Embolus Father Family Medical History: Hypertension, Osteoarthritis (OA) Mother Family Medical History: Cancer, Hypertension Additional Family Medical History / Comment(s): . Medications and Allergies Home Medications Medication Instructions Recorded Confirmed Type lamoTRIgine [LaMICtal] 100 mg PO BID 06/02/14 01/15/18 History Omeprazole [PriLOSEC] 20 mg PO BID 12/04/14 01/15/18 History Diltiazem HCl 90 mg PO HS 03/13/17 01/15/18 History Ergocalciferol [Vitamin D2 50,000 unit PO Q14D 03/13/17 01/15/18 History (DRISDOL)] Folic Acid 1 mg PO DAILY 03/13/17 01/15/18 History Gabapentin [Neurontin] 400 mg PO TID 03/13/17 01/15/18 History PARoxetine [Paxil] 10 mg PO DAILY 03/13/17 01/15/18 History Prochlorperazine [Compazine] 5 mg PO BID 03/13/17 01/15/18 History Sodium Bicarbonate Tab 650 mg PO HS 03/13/17 01/15/18 History Topiramate [Topamax] 100 mg PO BID 03/13/17 01/15/18 History levETIRAcetam [Keppra] 500 mg PO BID 03/13/17 01/15/18 History HYDROcodone/APAP 7.5-325MG [[place] 1 tab PO TID PRN 12/24/17 01/15/18 History 7.5-325] Magnesium Oxide [Mag-Ox] 400 mg PO DAILY 12/24/17 01/15/18 History Baclofen [Lioresal] 10 mg PO HS PRN 01/14/18 01/15/18 History PARoxetine HCL 40 mg PO HS 01/14/18 01/15/18 History rOPINIRole HCL [Requip] 4 mg PO TID 01/14/18 01/15/18 History Allergies Allergy/AdvReac Type Severity Reaction Status Date / Time metoclopramide HCl Allergy Severe Anaphylaxis Verified 01/14/18 13:09 [From Reglan] adhesive Allergy Rash/Hives Verified 01/14/18 13:09 azithromycin [From Zithromax] AdvReac Itching Verified 01/14/18 13:09 Surgical - Exam Vital Signs Temp Pulse Resp BP Pulse Ox 98.4 F 91 16 127/82 97 01/15/18 08:21 01/15/18 08:21 01/15/18 08:21 01/15/18 08:21 01/15/18 08:21 Physical exam: General: Well-developed, well-nourished HEENT: Normocephalic, sclerae nonicteric Abdomen: Nontender, nondistended Extremities: No edema Neuro: Alert and oriented Assessment and Plan (1) GERD (gastroesophageal reflux disease) Narrative/Plan: Will proceed with EGD at this time Status: Acute Code(s): K21.9 - GASTRO-ESOPHAGEAL REFLUX DISEASE WITHOUT ESOPHAGITIS SNOMED Code(s): 128823535
--- NOTE | 2018-01-15 09:13 | P.PCN ---
Date of Procedure: 01/15/18 Procedure(s) Performed: Preoperative Dx: GERD, presurgical Postoperative Dx: Gastritis, small hiatal hernia Procedure: EGD with Bx Anesthesia: Sedation Endoscopist: Dr. Ivy Specimens: Antrum Endoscopic Procedure: The patient was on the endoscopy table in the left decubitus position. The Olympus gastroscope was inserted into the oropharynx and passed under direct visualization to the region of the third portion of the duodenum. From that point the scope was slowly withdrawn inspecting all surfaces carefully. There were no neoplastic inflammatory or polypoid lesions throughout the duodenum. The pylorus was widely patent. The stomach was carefully inspected. There was gastritis present. A biopsy of the antrum took place to rule out H. pylori. Retroflexion revealed a small sliding hiatal hernia. The esophagus was then carefully examined. There were no neoplastic inflammatory or polypoid lesions throughout the visualized esophagus. The patient was then taken to the recovery room in stable condition per anesthesia guidelines. Recommendations: Await biopsy results. Follow-up bariatric clinic after her neurosurgical procedure.
[2018-01-15] MEDS ORDERED: IV FLUID CONTINUATION 1,000 ML IV ONE (09:19)
[2018-01-15 09:37] VITALS: BP 127/77; PULSE 79
== END 2018-01-15 10:03 | disposition home or self-care (01) ==
LOC: ORWHC2ENDO 08:09
PROVIDERS: ATTEND Surgery
DX: K29.50 Unspecified chronic gastritis without bleeding (principal); K21.9 Gastro-esophageal reflux disease without esophagitis; K44.9 Diaphragmatic hernia without obstruction or gangrene; J44.9 Chronic obstructive pulmonary disease, unspecified; E78.5 Hyperlipidemia, unspecified; M19.90 Unspecified osteoarthritis, unspecified site; F40.240 Claustrophobia; G40.909 Epilepsy, unspecified, not intractable, without status epilepticus; I47.1 Supraventricular tachycardia; I12.9 Hypertensive chronic kidney disease with stage 1 through stage 4 chronic kidney disease, or unspecified chronic kidney disease; G47.33 Obstructive sleep apnea (adult) (pediatric); N18.9 Chronic kidney disease, unspecified; Z90.49 Acquired absence of other specified parts of digestive tract; Z99.89 Dependence on other enabling machines and devices; Z82.49 Family history of ischemic heart disease and other diseases of the circulatory system; Z96.651 Presence of right artificial knee joint; Z86.19 Personal history of other infectious and parasitic diseases; Z88.1 Allergy status to other antibiotic agents; Z88.8 Allergy status to other drugs, medicaments and biological substances; Z91.048 Other nonmedicinal substance allergy status; Z79.899 Other long term (current) drug therapy; Z79.891 Long term (current) use of opiate analgesic
CPT/HCPCS: 88305; 43239; J2001; J2704

== ENCOUNTER → 2018-04-06 | Outpatient (CLI) | payer OTHER | END | disposition home or self-care (01) | LOC: LABPAT 11:57 | PROVIDERS: ATTEND Internal Medicine | DX: Z01.818 Encounter for other preprocedural examination (principal) | CPT/HCPCS: 93005 ==

== ENCOUNTER → 2018-05-11 | Outpatient (CLI) | payer OTHER ==
[2018-05-11 15:01] LABS: HCT 40.8 % (34.0-46.0); HGB 13.2 gm/dL (11.4-16.0); MCH 31.7 pg (25.0-35.0); MCHC 32.4 g/dL (31.0-37.0); MCV 97.8 fL (80.0-100.0); Mean Platelet Volume 7.2; Platelet Count 206 k/uL (150-450); RBC 4.17 m/uL (3.80-5.40); RDW 13.3 % (11.5-15.5); WBC 4.9 k/uL (3.8-10.6)
[2018-05-11 15:19] LABS: Albumin 4.5 g/dL (3.5-5.0); Calcium 9.9 mg/dL (8.4-10.2); Potassium 4.2 mmol/L (3.5-5.1); Total Bilirubin 0.3 mg/dL (0.2-1.3); Total Protein 7.3 g/dL (6.3-8.2)
== END | disposition home or self-care (01) ==
LOC: LABPAT 14:17
PROVIDERS: ATTEND Surgery
DX: Z01.812 Encounter for preprocedural laboratory examination (principal)
CPT/HCPCS: 36415; 80053; 85027

== ENCOUNTER → 2018-05-11 | Outpatient (CLI) | payer OTHER ==
[2018-05-11 13:11] VITALS: BP 130/83; PULSE 116; RESP 16; TEMP 97.8; BMI 37.5
--- NOTE | 2018-05-11 14:32 | P.BASOAP ---
Subjective Progress Note Date: 05/11/18 Principal diagnosis: Morbid obesity Patient returns after recent upper endoscopy. Since that time the patient had her deep brain stimulator placed. Her Parkinson's symptoms have improved fairly dramatically she believes. She has a neurosurgical clearance for sleeve gastrectomy. Upper endoscopy revealed mild gastritis and a small hiatal hernia. Patient currently takes vitamin B12 vitamin D and multivitamins. Objective - Vital Signs Vital signs: Vital Signs Temp 97.8 F 05/11/18 13:08 Pulse 116 H 05/11/18 13:08 Resp 16 05/11/18 13:08 BP 130/83 05/11/18 13:08 Pulse Ox Intake & Output 05/10/18 05/11/18 05/11/18 18:59 06:59 18:59 Weight 96.615 kg - Exam Abdomen: Soft, nontender, nondistended Assessment/Plan (1) Morbid obesity Narrative/Plan: Will proceed with upcoming sleeve gastrectomy on 02/19. The preoperative sleeve consent form was reviewed in detail. All questions were answered. Anticipate concurrent repair of hiatal hernia at that time. Patient demonstrated her ability to turn off her nerve stimulator here in the office. The risks of bleeding, infection, stenosis, stricture, leak, abscess, fistula formation, peritonitis, poor weight loss, reflux, vomiting, conversion to an open procedure , aborting sleeve gastrectomy, [place], PE, DVT, and were discussed. The patient understands and wishes to proceed. Plan: Date: 05/11/18 Initial Weight: 96.615 kg Initial BMI: 37.5 Current Weight: 96.615 kg Current BMI: 37.5 Type of Surgery: Vertical Sleeve Gastrectomy Total Volume in Band: Previous Volume: Volume Removed: Volume Added: Band Size:
== END ==
LOC: BARWHC3 12:45
PROVIDERS: ATTEND Surgery
DX: E66.01 Morbid (severe) obesity due to excess calories (principal); Z68.37 Body mass index [BMI] 37.0-37.9, adult
CPT/HCPCS: 99211

== ENCOUNTER 2018-05-21 08:34 | Inpatient (IN) | payer OTHER ==
--- NOTE | 2018-05-21 08:30 | P.GSHP ---
History of Present Illness H&P Date: 05/21/18 Chief Complaint: Morbid obesity Patient on our service from previous outpatient bariatric evaluation. Patient for seen in November of this year. Patient has been suffering with morbidity city' s. She is interested in sleeve gastrectomy. She has also looked into Bypass and lap band but feels the sleeve is more appropriate for her. Patient suffers from Parkinson's disease. She had a deep brain stimulator placed January at [facility]. She has received neurosurgical clearance for the weight loss procedure. Patient suffers also from GERD and hypertension hypercholesterolemia asthma and COPD. No history of DVT or dysphagia in the past. Upper endoscopy revealed gastritis and a small hiatal hernia. Past Medical History Past Medical History: Asthma, COPD, GERD/Reflux, Hyperlipidemia, Hypertension, Liver Disease, Neurologic Disorder, Osteoarthritis (OA), Osteoarthritis (OA), Pneumonia, Renal Disease, Seizure Disorder, Sleep Apnea/CPAP/BIPAP Additional Past Medical History / Comment(s): Hx hepatitis c (treated and resolved), questionable MS, bilateral carpal tunnel, Parkinsons Disease, ( patient states underwent Deep Brain Stimulation (chip implanted into brain to promote stimulation and treat Parkinson's) in January 2018. States has generators that she will be shutting off for this procedure. Claustrophobic Last seizure 3 yrs ago. Hx ulcers, anemia.Currently not using CPAP, but will be fitted for a mask prior to this procedure. Chronic kidney disease. Hx Pneumonia yrs ago. History of Any Multi-Drug Resistant Organisms: None Reported Past Surgical History: Section, Cholecystectomy, Joint Replacement, Orthopedic Surgery, Tonsillectomy Additional Past Surgical History / Comment(s): Kidney and liver biopsy, Section X4, right knee replacement X2, 7 ARTHROSCOPIC KNEE SURGERIES - 6 ON THE RIGHT AND 1 ON THE LEFT, left ankle surgery. Past Anesthesia/Blood Transfusion Reactions: Motion Sickness Additional Past Anesthesia/Blood Transfusion Reaction / Comment(s): Claustrophobic. Past Psychological History: Anxiety Additional Psychological History / Comment(s): Claustrophobia. Smoking Status: Former smoker Past Alcohol Use History: None Reported Additional Past Alcohol Use History / Comment(s): Started smoking at age 15, smoked 2-3 cig per day, quit 1996. Past Drug Use History: None Reported - Past Family History Brother(s) Family Medical History: Pulmonary Embolus Sister(s) Family Medical History: Cancer Additional Family Medical History / Comment(s): Breast cancer. Father Family Medical History: Hypertension, Osteoarthritis (OA) Mother Family Medical History: Cancer, Hypertension Additional Family Medical History / Comment(s): Breast Cancer. Medications and Allergies Home Medications Medication Instructions Recorded Confirmed Type lamoTRIgine [LaMICtal] 100 mg PO BID 06/02/14 05/19/18 History Diltiazem HCl 90 mg PO HS 03/13/17 05/19/18 History Folic Acid 1 mg PO DAILY 03/13/17 05/19/18 History PARoxetine [Paxil] 10 mg PO DAILY 03/13/17 05/19/18 History Prochlorperazine [Compazine] 5 mg PO BID 03/13/17 05/19/18 History Sodium Bicarbonate Tab 650 mg PO HS 03/13/17 05/19/18 History Topiramate [Topamax] 100 mg PO BID PRN 03/13/17 05/19/18 History levETIRAcetam [Keppra] 500 mg PO BID 03/13/17 05/19/18 History HYDROcodone/APAP 7.5-325MG [[place] 1 tab PO TID PRN 12/24/17 05/19/18 History 7.5-325] Magnesium Oxide [Mag-Ox] 400 mg PO DAILY 12/24/17 05/19/18 History PARoxetine HCL 40 mg PO HS 01/14/18 05/19/18 History Albuterol Inhaler [Ventolin Hfa 2 puff INHALATION RT-Q6H PRN 05/19/18 05/19/18 History Inhaler] Beclomethasone Dip 80 Mcg/Puff 1 puff INHALATION BID 05/19/18 05/19/18 History [Qvar 80 mcg] Gabapentin 400 mg PO TID 05/19/18 05/19/18 History Ranitidine HCl [Zantac] 150 mg PO BID 05/19/18 05/19/18 History rOPINIRole HCL 5 mg PO TID 05/19/18 05/19/18 History Allergies Allergy/AdvReac Type Severity Reaction Status Date / Time metoclopramide HCl Allergy Severe Anaphylaxis Verified 05/18/18 15:45 [From Reglan] adhesive Allergy Rash/Hives Verified 05/18/18 15:45 azithromycin [From Zithromax] AdvReac Itching Verified 05/18/18 15:45 Surgical - Exam Physical exam: General: Well-developed, well-nourished HEENT: Normocephalic, sclerae nonicteric Abdomen: Nontender, nondistended Extremities: No edema Neuro: Alert and oriented Assessment and Plan (1) Morbid obesity Narrative/Plan: Will proceed with sleeve gastrectomy and repair hiatal hernia at this time. The risks of bleeding, infection, stenosis, stricture, leak, abscess, fistula formation, peritonitis, poor weight loss, reflux, vomiting, conversion to an open procedure, aborting sleeve gastrectomy, IL, PE, DVT, and were discussed. The patient understands and wishes to proceed. Status: Acute Code(s): E66.01 - MORBID (SEVERE) OBESITY DUE TO EXCESS CALORIES SNOMED Code(s): 631932481
[~2018-05-21 08:34] MED LIST changes: +DEXAMETHASONE SOD PHOSPHATE 10 MG/ML 1 ML VIAL IV ONE; +ENOXAPARIN 40 MG/0.4 ML SYRINGE SQ ONE; +HYDROmorphone 0.5 MG/0.5 ML SYRINGE IVP PRN; -LACTATED RINGERS 1,000 ML IV SCH; -LIDOCAINE 1% 20 ML VIAL (10MG/ML) FOR IV START INTRADERMA PRN; +MIDAZOLAM (PF) 2 MG/2 ML VIAL IV PRN; +ONDANSETRON 4 MG/2 ML VIAL IVP ONE; +SCOPOLAMINE 1.5MG/72HR PATCH TRANSDERM ONE; +ceFAZolin IN SWFI 2 GM/20 ML SYRINGE IVP ONE
[2018-05-21] MEDS ORDERED: LACTATED RINGERS 1,000 ML IV ONE ×3 (08:52→13:08)
[2018-05-21] MEDS ORDERED: LIDOCAINE 1% 20 ML VIAL (10MG/ML) FOR IV START INTRADERMA ONE (09:03)
[2018-05-21] MEDS ORDERED: fentaNYL (PF) 50 MCG/ML 2 ML AMP IVP ONE (10:53)
[2018-05-21] MEDS ORDERED: LIDOCAINE 1% INJ 10MG/ML (20 ML MDV) ONE (11:42)
[2018-05-21] MEDS ORDERED: fentaNYL (PF) 50 MCG/ML 2 ML AMP ONE (11:42)
[2018-05-21] MEDS ORDERED: MIDAZOLAM 2 MG/2 ML VIAL ONE (11:42)
[2018-05-21] MEDS ORDERED: NEOSTIGMINE 1 MG/ML 10 ML VIAL ONE (11:42)
[2018-05-21] MEDS ORDERED: ROCURONIUM BROMIDE 10 MG/ML 10 ML VIAL IV ONE (11:42)
[2018-05-21] MEDS ORDERED: HYDROmorphone (PF) 1 MG/ML ONE (11:42)
[2018-05-21] MEDS ORDERED: PROPOFOL 10 MG/ML 20 ML VIAL IV ONE (11:42)
[2018-05-21] MEDS ORDERED: GLYCOPYRROLATE 0.2 MG/ML 2 ML VIAL ONE (11:42)
[2018-05-21] MEDS ORDERED: BUPIVACAIN-EPI 0.25%-1:200,000 30 ML VIAL SQ ONE ×2 (12:20→13:51)
[2018-05-21] MEDS ORDERED: NALOXONE 0.4 MG/ML 1 ML VIAL IV PRN (14:19)
[2018-05-21] MEDS ORDERED: ACETAMINOPHEN IV (For NPO) 1,000 MG in EMPTY BAG 1 BAG IVPB ONE (14:19)
[2018-05-21] MEDS ORDERED: HYOSCYAMINE ORAL DROPS 1.875 MG/15 ML BOTTLE PO PRN (14:19)
[2018-05-21] MEDS ORDERED: SIMETHICONE 40 MG/0.6 ML DROPS 2,000 MG/30 ML BOTTLE PO PRN (14:19)
[2018-05-21] MEDS ORDERED: diphenhydrAMINE 50 MG/ML 1 ML VIAL IVP PRN (14:19)
--- NOTE | 2018-05-21 14:29 | P.OP ---
Date of Procedure: 05/21/18 Procedure(s) Performed: PREOPERATIVE DIAGNOSIS: Morbid obesity, GERD, hypertension, hypercholesterolemia , asthma, COPD, hiatal hernia POSTOPERATIVE DIAGNOSIS: Same PROCEDURE: Laparoscopic sleeve gastrectomy with repair hiatal hernia SURGEON: Cata EBL: Minimal ANESTHESIA: General COMPLICATIONS: None OPERATIVE PROCEDURE: Patient was placed in the operating table in the supine position. She was placed under general anesthesia at that time. The abdomen was prepped and draped in sterile fashion after the patient was placed in lithotomy. A 5 mm optical trocar was used to enter the abdominal cavity in the left upper quadrant. Insufflation took place to 15 millimeters mercury. An additional right subxiphoid 5 mm trocar was then placed under direct relation and then removed. 2 additional 5 mm trochars were placed in the right upper quadrant and left upper quadrant under direct visualization and a 15 mm trocar in the supraumbilical location. The liver was retracted using a medium Jennie liver retractor through the right subxiphoid trocar site. The hiatus was inspected. The patient had a moderate sized hiatal hernia. Circumferentially the phrenoesophageal ligament was incised identifying the actual defect. The right diaphragmatic crura was well visualized. I was able to bluntly dissect and visualize the left diaphragmatic crura. At that point I moved to the mid aspect of the greater curvature the stomach. The short gastric vasculature was divided using a LigaSure device proximally. I then switched and divided the short gastrics distally to a 3-4 cm from the pylorus. The dissection took place up to the left diaphragmatic crura at that point. The posterior short gastrics were likewise divided using the LigaSure device. Once the stomach was fully mobilized the blunt tipped 40-Wolof bougie dilator was advanced into the stomach and advanced all the way to the prepyloric location. A black echelon 60 stapler was utilized and fired tangentially across the antrum taking care to avoid narrowing at the incisura angularis. Subsequent firings of the stapler took place. A total of 6 green echelon 60 staplers with seam guard took place proximally staying on the outer edge of our dilator. The dilator was then removed. The oral gastric tube was reinserted. The stomach was insufflated with approximately 100 mL of methylene blue. No evidence of leak or obstruction was seen. The hiatus was then addressed once again. 3 separate 2-0 Ethibond sutures were used to reapproximate the crura posteriorly. This adequately closed the diaphragmatic hernia. Tisseel fibrin glue was then sprayed along the entire length of the staple line. No bleeding was identified. The distal aspect of the sleeve was then reapproximated to the gastrosplenic and gastrocolic ligament using a short running 20 strata fix suture. This was done to prevent kinking or twisting of the sleeve. The stomach remnant was removed from the 15 mm trocar site without difficulty. The fascia at the 15 more site was closed using interrupted 0 Vicryl sutures with the laparoscopic suture passer and Costa Polly technique. The insufflation was evacuated. The skin at all 5 incisions were closed using 4-0 Monocryl sutures. Skin glue and sterile dressings were then applied. DISPOSITION: Stable to recovery room
[2018-05-21] MEDS: LACTATED RINGERS 1,000 ML IV SCH (14:40)
[2018-05-21] MEDS: HYDROmorphone 1 MG/ML 1 ML SYRINGE IVP PRN ×3 (15:21→21:45)
[2018-05-21 15:24] VITALS: BMI 33.1
[2018-05-21] MEDS: ALBUTEROL NEBULIZED 2.5 MG/3 ML INHALATION SCH ×2 (16:01→19:58)
[2018-05-21] MEDS: levETIRAcetam 500 MG TAB PO SCH (21:15)
[2018-05-21] MEDS: lamoTRIgine 100 MG TAB PO SCH (21:15)
[2018-05-22] MEDS: ENOXAPARIN 40 MG/0.4 ML SYRINGE SQ SCH ×2 (00:02→12:31)
[2018-05-22] MEDS: ONDANSETRON 4 MG/2 ML VIAL IVP PRN ×3 (00:12→22:50)
[2018-05-22] MEDS: HYDROmorphone 1 MG/ML 1 ML SYRINGE IVP PRN ×5 (00:29→17:02)
[2018-05-22] MEDS: LACTATED RINGERS 1,000 ML IV SCH (05:19)
[2018-05-22 07:23] LABS: Magnesium 2.2 mg/dL (1.6-2.3); Phosphorus 3.5 mg/dL (2.5-4.5); Potassium 4.1 mmol/L (3.5-5.1)
[2018-05-22] MEDS: 0.9% NACL WITH KCL 20 MEQ/L 1,000 ML IV SCH ×2 (07:45→18:01)
[2018-05-22 07:57] LABS: Basophils % (A) 0 %; Eosinophils % (A) 1 %; HCT 39.3 % (34.0-46.0); HGB 12.4 gm/dL (11.4-16.0); Hypochromasia Slight; Lymphocytes # (A) 1.1 k/uL (1.0-4.8); Lymphocytes % (A) 16 %; MCH 32.4 pg (25.0-35.0); MCHC 31.6 g/dL (31.0-37.0); MCV 102.6 fL (80.0-100.0); Macrocytosis Slight; Mean Platelet Volume 7.6; Monocytes # (A) 0.4 k/uL (0-1.0); Monocytes % (A) 5 %; Neutrophils # (A) 5.6 k/uL (1.3-7.7); Neutrophils % (A) 77 %; Platelet Count 158 k/uL (150-450); RBC 3.83 m/uL (3.80-5.40); RDW 13.2 % (11.5-15.5); WBC 7.3 k/uL (3.8-10.6)
[2018-05-22] MEDS: 1: MVI, ADULT NO.4 WITH VIT K 10 ML, THIAMINE 100 MG, FOLIC ACID 1 MG, POTASSIUM CHLORID IV SCH ×18 (08:47→17:59)
[2018-05-22] MEDS: ALBUTEROL NEBULIZED 2.5 MG/3 ML INHALATION SCH ×4 (09:09→20:49)
--- NOTE | 2018-05-22 09:25 | FL ---
SINGLE CONTRAST UPPER GI EXAMINATION: CLINICAL HISTORY: 51-year-old female postop bariatric surgery, assess for leak. TECHNIQUE: Single contrast exam performed with 50 ml Isovue-370 contrast. Total fluoroscopy time: 1 minute 30 seconds. Total images: 23. FINDINGS: The patient swallowed or contrast without difficulty or delay. Esophageal peristalsis and motility a re within normal limits. Is satisfactory passage of contrast from esophagus to stomach with posterior changes noted of the gastrectomy. Eventual passage into the distal stomach with progressive accumula tion and then eventual passage into the duodenum. The last swallow that the patient takes is large an d this results in prominent pooling of contrast in the esophagus and some gradual passage. The exam i s terminated prior to visualizing complete clearance. There is no extravasation of contrast to sugges t leak. No postsurgical free air is seen on either side with generator devices on both sides. Some prominent bowel gas seen interposed below the right hemidiaphragm. IMPRESSION: No evidence of leak status post sleeve gastrectomy. There is very mild postoperative obstruction. Thi s is made more apparent as the patient's last swallow was large. Recommend the patient remain upright for at least 30 minutes after the exam in order to allow for successful clearance of the esophagus.
[2018-05-22] MEDS: lamoTRIgine 100 MG TAB PO SCH ×2 (09:34→22:13)
[2018-05-22] MEDS: levETIRAcetam 500 MG TAB PO SCH ×2 (09:34→22:13)
[2018-05-22] MEDS: PANTOPRAZOLE 40 MG/10 ML VIAL IV SCH (09:34)
--- NOTE | 2018-05-22 10:08 | P.PN ---
Subjective Progress Note Date: 05/22/18 Principal diagnosis: Morbid obesity Patient did well overnight. Minimal discomfort. Patient unfortunately this morning during her very him swallow taken very large swallow at the end of the procedure and developed chest pain. It is gradually lessening. She had better improvement in her pain once she brought up some gas. Labs today look great. Her upper GI shows no evidence of leak or obstruction. You can see on the last films however a large column of contrast in the distal to mid esophagus awaiting passage through the sleeve. Objective - Vital Signs Vital signs: Vital Signs Temp 98.2 F 05/22/18 07:00 Pulse 87 05/22/18 09:47 Resp 25 H 05/22/18 09:47 BP 122/79 05/22/18 09:47 Pulse Ox 100 05/22/18 09:47 Intake & Output 05/21/18 05/22/18 05/22/18 18:59 06:59 18:59 Intake Total 1600 Output Total 5 Balance 1595 Weight 90.4 kg Intake: IV 1600 Output: Estimated Blood Loss 5 Other: # Voids 2 - Exam Abdomen: Soft, nondistended, incisions clean and dry - Labs CBC & Chem 7: 05/22/18 06:38 05/22/18 06:38 Labs: Abnormal Lab Results - Last 24 Hours (Table) 05/22/18 05/22/18 Range/Units 06:38 06:38 MCV 102.6 H (80.0-100.0) fL Chloride 109 H (98-107) mmol/L BUN 18 H (7-17) mg/dL Creatinine 1.46 H (0.52-1.04) mg/dL Calcium 8.0 L (8.4-10.2) mg/dL Assessment and Plan (1) Morbid obesity Narrative/Plan: Patient's pain this morning likely on the basis of esophageal spasm and dilatation with the large swallow. I stressed to her at this time that we would start her on a bariatric liquid diet however I want her to take very small sips. We will increase activity as well. Current Visit: No Status: Acute Code(s): E66.01 - MORBID (SEVERE) OBESITY DUE TO EXCESS CALORIES SNOMED Code(s): 564512534
[2018-05-22] MEDS ORDERED: TOPIRAMATE 100 MG TAB PO PRN (11:22)
--- NOTE | 2018-05-22 12:13 | P.CONS ---
History of Present Illness - Reason for Consult Accommodations regarding hypertensive, antiseizure medications - History of Present Illness 52-year-old [place] female was admitted for elective sleeve gastrectomy sexes liniment surgery patient denied any fever chills nausea vomiting abdominal pain patient is an aunt's in here patient does have history of COPD he quit smoking years ago ration doesn't use any oxygen at home. Patient denied any shortness of breath patient is feeling better no nausea does have bowel sounds which are sluggish at this time. Patient denied any cough or dysuria. Review of Systems REVIEW OF SYSTEMS: CONSTITUTIONAL: No fever, no malaise, no fatigue. HEENT: No recent visual problems or hearing problems. Denied any sore throat. CARDIOVASCULAR: No chest pain, orthopnea, PND, no palpitations, no syncope. PULMONARY: No shortness of breath, no cough, no hemoptysis. GASTROINTESTINAL: No diarrhea, no nausea, no vomiting, no abdominal pain. NEUROLOGICAL: No headaches, no weakness, no numbness. HEMATOLOGICAL: Denies any bleeding or petechiae. GENITOURINARY: Denies any burning micturition, frequency, or urgency. MUSCULOSKELETAL/RHEUMATOLOGICAL: Denies any joint pain, swelling, or any muscle pain. ENDOCRINE: Denies any polyuria or polydipsia. The rest of the 14-point review of systems is negative. Past Medical History Past Medical History: Asthma, COPD, GERD/Reflux, Hyperlipidemia, Hypertension, Liver Disease, Neurologic Disorder, Osteoarthritis (OA), Osteoarthritis (OA), Pneumonia, Renal Disease, Seizure Disorder, Sleep Apnea/CPAP/BIPAP Additional Past Medical History / Comment(s): Hx hepatitis c (treated and resolved), questionable MS, bilateral carpal tunnel, Parkinsons Disease, ( patient states underwent Deep Brain Stimulation (chip implanted into brain to promote stimulation and treat Parkinson's) in January 2018. States has generators that she will be shutting off for this procedure. Claustrophobic Last seizure 3 yrs ago. Hx ulcers, anemia.Currently not using CPAP, but will be fitted for a mask prior to this procedure. Chronic kidney disease. Hx Pneumonia yrs ago. History of Any Multi-Drug Resistant Organisms: None Reported Past Surgical History: Section, Cholecystectomy, Joint Replacement, Orthopedic Surgery, Tonsillectomy Additional Past Surgical History / Comment(s): Kidney and liver biopsy, Section X4, right knee replacement X2, 7 ARTHROSCOPIC KNEE SURGERIES - 6 ON THE RIGHT AND 1 ON THE LEFT, left ankle surgery. Past Anesthesia/Blood Transfusion Reactions: Motion Sickness Additional Past Anesthesia/Blood Transfusion Reaction / Comm: Claustrophobic. Past Psychological History: Anxiety Additional Psychological History / Comment(s): Claustrophobia. Smoking Status: Former smoker Past Alcohol Use History: None Reported Additional Past Alcohol Use History / Comment(s): Started smoking at age 15, smoked 2-3 cig per day, quit 1996. Past Drug Use History: None Reported - Past Family History Brother(s) Family Medical History: Pulmonary Embolus Sister(s) Family Medical History: Cancer Additional Family Medical History / Comment(s): Breast cancer. Father Family Medical History: Hypertension, Osteoarthritis (OA) Mother Family Medical History: Cancer, Hypertension Additional Family Medical History / Comment(s): Breast Cancer. Medications and Allergies Home Medications Medication Instructions Recorded Confirmed Type lamoTRIgine [LaMICtal] 100 mg PO BID 06/02/14 05/21/18 History Diltiazem HCl 90 mg PO HS 03/13/17 05/21/18 History Folic Acid 1 mg PO DAILY 03/13/17 05/21/18 History PARoxetine [Paxil] 10 mg PO DAILY 03/13/17 05/21/18 History Prochlorperazine [Compazine] 5 mg PO BID 03/13/17 05/21/18 History Sodium Bicarbonate Tab 650 mg PO HS 03/13/17 05/21/18 History Topiramate [Topamax] 100 mg PO BID PRN 03/13/17 05/21/18 History levETIRAcetam [Keppra] 500 mg PO BID 03/13/17 05/21/18 History HYDROcodone/APAP 7.5-325MG [[place] 1 tab PO TID PRN 12/24/17 05/21/18 History 7.5-325] Magnesium Oxide [Mag-Ox] 400 mg PO DAILY 12/24/17 05/21/18 History PARoxetine HCL 40 mg PO HS 01/14/18 05/21/18 History Albuterol Inhaler [Ventolin Hfa 2 puff INHALATION RT-Q6H PRN 05/19/18 05/21/18 History Inhaler] Beclomethasone Dip 80 Mcg/Puff 1 puff INHALATION RT-BID 05/19/18 05/21/18 History [Qvar 80 mcg] Ranitidine HCl [Zantac] 150 mg PO BID 05/19/18 05/21/18 History rOPINIRole HCL 5 mg PO TID 05/19/18 05/21/18 History Gabapentin [Neurontin] 400 mg PO TID 05/21/18 05/21/18 History Allergies Allergy/AdvReac Type Severity Reaction Status Date / Time metoclopramide HCl Allergy Severe Anaphylaxis Verified 05/21/18 15:24 [From Reglan] adhesive Allergy Rash/Hives Verified 05/21/18 15:24 azithromycin [From Zithromax] AdvReac Itching Verified 05/21/18 15:24 Physical Exam Vitals: Vital Signs Temp Pulse Pulse Pulse Resp BP Pulse Ox 05/22/18 09:47 87 25 H 122/79 100 05/22/18 09:25 84 05/22/18 09:11 80 93 L 05/22/18 07:00 98.2 F 76 16 112/74 100 05/22/18 00:34 98 05/21/18 23:00 98.4 F 75 16 124/77 92 L 05/21/18 21:34 99 05/21/18 20:15 98.0 F 80 18 104/54 96 05/21/18 20:11 82 05/21/18 20:00 78 05/21/18 17:10 94 115/65 05/21/18 17:00 94 111/62 05/21/18 16:45 83 103/66 05/21/18 16:15 85 107/63 05/21/18 16:12 89 05/21/18 16:10 99 05/21/18 16:05 80 05/21/18 16:00 78 106/65 05/21/18 15:45 67 116/64 05/21/18 15:30 70 125/69 05/21/18 15:15 98.7 F 79 16 109/56 94 L 05/21/18 14:45 102 H 16 116/62 95 05/21/18 14:30 104 H 16 119/62 96 05/21/18 14:15 103 H 16 119/61 96 05/21/18 14:01 98.1 F 105 H 14 128/67 96 Intake and Output 1205/22/18 05/22/18 22:59 06:59 14:59 Other: # Voids 2 2 Weight 90.4 kg PHYSICAL EXAMINATION: GENERAL: The patient is alert and oriented x3, not in any acute distress. Well developed, well nourished. HEENT: Pupils are round and equally reacting to light. EOMI. No scleral icterus. No conjunctival pallor. Normocephalic, atraumatic. No pharyngeal erythema. No thyromegaly. CARDIOVASCULAR: S1 and S2 present. No murmurs, rubs, or gallops. PULMONARY: Chest is clear to auscultation, no wheezing or crackles. ABDOMEN: Soft, nontender, nondistended, normoactive bowel sounds. No palpable organomegaly. Because site areas are clean MUSCULOSKELETAL: No joint swelling or deformity. EXTREMITIES: No cyanosis, clubbing, or pedal edema. NEUROLOGICAL: Gross neurological examination did not reveal any focal deficits. SKIN: No rashes. Results CBC & Chem 7: 05/22/18 06:38 05/22/18 06:38 Labs: Abnormal Lab Results - Last 24 Hours (Table) 05/22/18 05/22/18 Range/Units 06:38 06:38 MCV 102.6 H (80.0-100.0) fL Chloride 109 H (98-107) mmol/L BUN 18 H (7-17) mg/dL Creatinine 1.46 H (0.52-1.04) mg/dL Calcium 8.0 L (8.4-10.2) mg/dL Assessment and Plan Plan: - postoperative day one sleeve gastrectomy: Patient is clinically doing well 3 any sedation of diet as per primary service pain management due to prophylaxis per primary service. We will monitor for any fever -COPD without any acute exacerbation continue with as needed albuterol no further intervention is necessary at this time and is also on inhaled steroids which will be continued as well. -Seizure disorder patient was initiated back on her Keppra, Lamictal and Topamax -Bipolar disorder -Gastroesophageal reflux disease -Depression continue with paroxetine and the Topamax -Peripheral neuropathy for which patient is on gabapentin which will be continued -Hyperlipidemia -Sleep apnea for which patient uses CPAP machine at night which is being continued..
[2018-05-22] MEDS: GABAPENTIN 400 MG CAP PO SCH ×2 (16:51→22:14)
[2018-05-22] MEDS: rOPINIRole HCL 4 MG TABLET PO SCH ×2 (16:53→22:24)
[2018-05-22] MEDS: FLUTICASONE 110 MCG INHALER INHALATION SCH (20:49)
[2018-05-22] MEDS: DILTIAZEM ORAL 60 MG TAB PO SCH (22:13)
[2018-05-22] MEDS: PARoxetine 20 MG TAB PO SCH (22:13)
[2018-05-22] MEDS: SODIUM BICARBONATE TAB 650 MG TAB PO SCH (22:23)
[2018-05-23] MEDS: ENOXAPARIN 40 MG/0.4 ML SYRINGE SQ SCH ×2 (00:25→13:32)
[2018-05-23] MEDS: 1: MVI, ADULT NO.4 WITH VIT K 10 ML, THIAMINE 100 MG, FOLIC ACID 1 MG, POTASSIUM CHLORID IV SCH ×6 (04:06)
[2018-05-23] MEDS: HYDROmorphone 1 MG/ML 1 ML SYRINGE IVP PRN ×4 (05:23→19:16)
[2018-05-23] MEDS: LACTATED RINGERS 1,000 ML IV SCH (06:48)
[2018-05-23] MEDS: 0.9% NACL WITH KCL 20 MEQ/L 1,000 ML IV SCH ×3 (06:48→22:48)
[2018-05-23] MEDS ORDERED: BISACODYL 5 MG TABLET.DR PO PRN (08:00)
[2018-05-23] MEDS: ALBUTEROL NEBULIZED 2.5 MG/3 ML INHALATION SCH ×4 (08:10→20:39)
[2018-05-23] MEDS: FLUTICASONE 110 MCG INHALER INHALATION SCH ×2 (08:15→20:39)
[2018-05-23] MEDS ORDERED: FAMOTIDINE 20 MG TAB PO SCH (09:00)
[2018-05-23] MEDS: GABAPENTIN 400 MG CAP PO SCH (09:08)
[2018-05-23] MEDS: lamoTRIgine 100 MG TAB PO SCH ×2 (09:16→21:48)
[2018-05-23] MEDS: rOPINIRole HCL 4 MG TABLET PO SCH ×3 (09:16→21:49)
[2018-05-23] MEDS: PANTOPRAZOLE 40 MG/10 ML VIAL IV SCH (09:16)
[2018-05-23] MEDS: MAGNESIUM OXIDE 400 MG TAB PO SCH (09:16)
[2018-05-23] MEDS: PARoxetine 10 MG TAB PO SCH (09:17)
[2018-05-23] MEDS ORDERED: GABAPENTIN 100 MG CAP PO ONE (09:30)
[2018-05-23] MEDS: levETIRAcetam ORAL SOLN 500 MG/5 ML CUP PO SCH ×2 (09:47→21:48)
--- NOTE | 2018-05-23 10:24 | P.PN ---
Subjective Progress Note Date: 05/23/18 Principal diagnosis: Morbid obesity Patient doing better today. She says her pain is much better than it was yesterday. Heart rate this morning 81. Labs pending. Patient does however state her pain is 9 out of 10. When I ask her she says her pain today is many times improved from yesterday. She is afebrile. Tolerating liquids. Objective - Vital Signs Vital signs: Vital Signs Temp 98.6 F 05/23/18 07:40 Pulse 96 05/23/18 08:30 Resp 16 05/23/18 07:40 BP 118/72 05/23/18 07:40 Pulse Ox 99 05/23/18 07:40 Intake & Output 05/22/18 05/23/18 05/23/18 18:59 06:59 18:59 Intake Total 1880 Balance 1880 Intake: Intake, IV Titration 1100 Amount 0.9% NaCl with KCl 20 Meq 300 /l 1,000 ml @ 100 mls/hr IV .Q10H TAMIE Rx#: [id number] Mvi, Adult No.4 with Vit 800 K 10 ml Thiamine 100 mg Folic Acid 1 mg Potassium Chloride 20 meq In Sodium Chloride 0.9% 1, 000 ml @ 100 mls/hr IV . BY DURATION TAMIE Rx#: [id number] Oral 780 Other: # Voids 3 5 - Exam Abdomen: Soft, nondistended, mild incisional tenderness - Labs CBC & Chem 7: 05/22/18 06:38 05/22/18 06:38 Assessment and Plan (1) Morbid obesity Narrative/Plan: Continue bariatric liquids. Increase ambulation. Check morning labs. Possible discharge tomorrow. Current Visit: No Status: Acute Code(s): E66.01 - MORBID (SEVERE) OBESITY DUE TO EXCESS CALORIES SNOMED Code(s): 400136965
[2018-05-23 10:36] LABS: Basophils % (A) 0 %; Eosinophils % (A) 1 %; HCT 37.8 % (34.0-46.0); HGB 11.8 gm/dL (11.4-16.0); Hypochromasia Slight; Lymphocytes # (A) 0.6 k/uL (1.0-4.8); Lymphocytes % (A) 12 %; MCH 31.7 pg (25.0-35.0); MCHC 31.2 g/dL (31.0-37.0); MCV 101.7 fL (80.0-100.0); Macrocytosis Slight; Mean Platelet Volume 7.2; Monocytes # (A) 0.2 k/uL (0-1.0); Monocytes % (A) 5 %; Neutrophils # (A) 3.6 k/uL (1.3-7.7); Neutrophils % (A) 81 %; Platelet Count 129 k/uL (150-450); RBC 3.72 m/uL (3.80-5.40); RDW 13.2 % (11.5-15.5); WBC 4.5 k/uL (3.8-10.6)
[2018-05-23 10:43] LABS: Calcium 8.5 mg/dL (8.4-10.2); Potassium 4.4 mmol/L (3.5-5.1)
[2018-05-23] MEDS: FOLIC ACID 1 MG TAB PO SCH (13:32)
[2018-05-23] MEDS: ONDANSETRON 4 MG/2 ML VIAL IVP PRN ×2 (13:32→22:48)
--- NOTE | 2018-05-23 13:37 | P.PN ---
Subjective 52-year-old female status post date 2 sleeve gastrectomy denied any symptoms. Constitutional: Denied any fatigue denied any fever. Cardio vascular: denied any chest pain, palpitations Gastrointestinal denied any nausea vomiting Pulmonary: Denied any shortness of breath cough Neurologic denied any new focal deficits All inpatient medications were reviewed and appropriate changes in these medications as dictated in the interval history and assessment and plan. Objective - Vital Signs Vital signs: Vital Signs Temp 98.6 F 05/23/18 07:40 Pulse 96 05/23/18 11:30 Resp 16 05/23/18 07:40 BP 118/72 05/23/18 07:40 Pulse Ox 99 05/23/18 07:40 Intake & Output 05/22/18 05/23/18 05/23/18 18:59 06:59 18:59 Intake Total 1880 Balance 1880 Intake: Intake, IV Titration 1100 Amount 0.9% NaCl with KCl 20 Meq 300 /l 1,000 ml @ 100 mls/hr IV .Q10H TAMIE Rx#: [id number] Mvi, Adult No.4 with Vit 800 K 10 ml Thiamine 100 mg Folic Acid 1 mg Potassium Chloride 20 meq In Sodium Chloride 0.9% 1, 000 ml @ 100 mls/hr IV . BY DURATION TAMIE Rx#: [id number] Oral 780 Other: Voiding Method Toilet # Voids 3 5 - Exam PHYSICAL EXAMINATION: GENERAL: The patient is alert and oriented x3, not in any acute distress. Well developed, well nourished. HEENT: Pupils are round and equally reacting to light. EOMI. No scleral icterus. No conjunctival pallor. Normocephalic, atraumatic. No pharyngeal erythema. No thyromegaly. CARDIOVASCULAR: S1 and S2 present. No murmurs, rubs, or gallops. PULMONARY: Chest is clear to auscultation, no wheezing or crackles. ABDOMEN: Soft, nontender, nondistended, normoactive bowel sounds. No palpable organomegaly. Because site areas are clean MUSCULOSKELETAL: No joint swelling or deformity. EXTREMITIES: No cyanosis, clubbing, or pedal edema. NEUROLOGICAL: Gross neurological examination did not reveal any focal deficits. SKIN: No rashes. - Labs CBC & Chem 7: 05/23/18 09:55 05/23/18 09:55 Labs: Abnormal Lab Results - Last 24 Hours (Table) 05/23/18 05/23/18 Range/Units 09:55 09:55 RBC 3.72 L (3.80-5.40) m/uL MCV 101.7 H (80.0-100.0) fL Plt Count 129 L (150-450) k/uL Lymphocytes # 0.6 L (1.0-4.8) k/uL Chloride 114 H (98-107) mmol/L Glucose 100 H (74-99) mg/dL Assessment and Plan Plan: - postoperative day one sleeve gastrectomy: Patient is clinically doing well 3 any sedation of diet as per primary service pain management due to prophylaxis per primary service. We will monitor for any fever -COPD without any acute exacerbation continue with as needed albuterol no further intervention is necessary at this time and is also on inhaled steroids which will be continued as well. -Seizure disorder patient was initiated back on her Keppra, Lamictal and Topamax -Bipolar disorder -Gastroesophageal reflux disease -Depression continue with paroxetine and the Topamax -Peripheral neuropathy for which patient is on gabapentin which will be continued -Hyperlipidemia -Sleep apnea for which patient uses CPAP machine at night which is being continued..
[2018-05-23] MEDS: GABAPENTIN 100 MG CAP PO SCH ×2 (16:59→21:49)
[2018-05-23] MEDS: PARoxetine 20 MG TAB PO SCH (21:49)
[2018-05-23] MEDS: DILTIAZEM ORAL 60 MG TAB PO SCH (21:49)
[2018-05-23] MEDS: SODIUM BICARBONATE TAB 650 MG TAB PO SCH (21:49)
[2018-05-24] MEDS: ENOXAPARIN 40 MG/0.4 ML SYRINGE SQ SCH ×2 (02:02→13:20)
[2018-05-24] MEDS: HYDROmorphone 1 MG/ML 1 ML SYRINGE IVP PRN ×2 (02:48→09:39)
[2018-05-24] MEDS: LACTATED RINGERS 1,000 ML IV SCH (07:02)
[2018-05-24] MEDS: 1: MVI, ADULT NO.4 WITH VIT K 10 ML, THIAMINE 100 MG, FOLIC ACID 1 MG, POTASSIUM CHLORID IV SCH ×12 (07:32→10:49)
[2018-05-24 07:34] VITALS: BP 112/72; RESP 18; TEMP 97.7
[2018-05-24] MEDS: FLUTICASONE 110 MCG INHALER INHALATION SCH (09:32)
[2018-05-24] MEDS: ALBUTEROL NEBULIZED 2.5 MG/3 ML INHALATION SCH ×2 (09:32→13:42)
[2018-05-24 09:35] VITALS: PULSE 88
[2018-05-24] MEDS: PANTOPRAZOLE 40 MG/10 ML VIAL IV SCH (09:39)
[2018-05-24] MEDS: GABAPENTIN 100 MG CAP PO SCH (09:39)
[2018-05-24] MEDS: levETIRAcetam ORAL SOLN 500 MG/5 ML CUP PO SCH (09:39)
[2018-05-24] MEDS: MAGNESIUM OXIDE 400 MG TAB PO SCH (09:40)
[2018-05-24] MEDS: lamoTRIgine 100 MG TAB PO SCH (09:40)
[2018-05-24] MEDS: rOPINIRole HCL 4 MG TABLET PO SCH (09:40)
[2018-05-24] MEDS: PARoxetine 10 MG TAB PO SCH (09:47)
--- NOTE | 2018-05-24 10:14 | P.DS ---
Providers Date of admission: 05/21/18 08:34 Expected date of discharge: 05/24/18 Attending physician: Willie Ivy Consults: 05/21/18 14:19 Consult Physician Routine Consulting Provider: Macey Mota Consult Reason/Comments: Medical management Do you want consulting provider notified?: Yes Primary care physician: Tammy Cowanbal - Discharge Diagnosis(es) (1) Morbid obesity Patient underwent elective sleeve gastrectomy on Thursday. Postoperatively the patient has done fairly well. Pain is well-controlled. She states her pain this morning is a 2 out of 10. She is tolerating liquids. She is quite anxious to go home. She already has Prilosec and [place] at home. Incisions are healing nicely. Abdomen is nontender. She will follow up in the bariatric clinic next week with the nursing staff and with myself the following week. Current Visit: Yes Status: Acute Plan - Discharge Summary Discharge Rx Participant: Yes New Discharge Prescriptions: No Action lamoTRIgine [LaMICtal] 100 mg PO BID Sodium Bicarbonate Tab 650 mg PO HS Topiramate [Topamax] 100 mg PO BID PRN PRN Reason: Headache Prochlorperazine [Compazine] 5 mg PO BID PARoxetine [Paxil] 10 mg PO DAILY levETIRAcetam [Keppra] 500 mg PO BID Folic Acid 1 mg PO DAILY Diltiazem HCl 90 mg PO HS Magnesium Oxide [Mag-Ox] 400 mg PO DAILY HYDROcodone/APAP 7.5-325MG [[place] 7.5-325] 1 tab PO TID PRN PRN Reason: Pain PARoxetine HCL 40 mg PO HS Albuterol Inhaler [Ventolin Hfa Inhaler] 2 puff INHALATION RT-Q6H PRN PRN Reason: Shortness Of Breath Ranitidine HCl [Zantac] 150 mg PO BID rOPINIRole HCL 5 mg PO TID Beclomethasone Dip 80 Mcg/Puff [Qvar 80 mcg] 1 puff INHALATION RT-BID Gabapentin [Neurontin] 400 mg PO TID Discharge Medication List lamoTRIgine [LaMICtal] 100 mg PO BID 06/02/14 [History] Diltiazem HCl 90 mg PO HS 03/13/17 [History] Folic Acid 1 mg PO DAILY 03/13/17 [History] PARoxetine [Paxil] 10 mg PO DAILY 03/13/17 [History] Prochlorperazine [Compazine] 5 mg PO BID 03/13/17 [History] Sodium Bicarbonate Tab 650 mg PO HS 03/13/17 [History] Topiramate [Topamax] 100 mg PO BID PRN 03/13/17 [History] levETIRAcetam [Keppra] 500 mg PO BID 03/13/17 [History] HYDROcodone/APAP 7.5-325MG [[place] 7.5-325] 1 tab PO TID PRN 12/24/17 [History] Magnesium Oxide [Mag-Ox] 400 mg PO DAILY 12/24/17 [History] PARoxetine HCL 40 mg PO HS 01/14/18 [History] Albuterol Inhaler [Ventolin Hfa Inhaler] 2 puff INHALATION RT-Q6H PRN 05/19/18 [ History] Beclomethasone Dip 80 Mcg/Puff [Qvar 80 mcg] 1 puff INHALATION RT-BID 05/19/18 [ History] Ranitidine HCl [Zantac] 150 mg PO BID 05/19/18 [History] rOPINIRole HCL 5 mg PO TID 05/19/18 [History] Gabapentin [Neurontin] 400 mg PO TID 05/21/18 [History] Follow up Appointment(s)/Referral(s): [facility],. [NON-STAFF] - 1 Week
[2018-05-24] MEDS: 0.9% NACL WITH KCL 20 MEQ/L 1,000 ML IV SCH (10:49)
[2018-05-24] MEDS: FOLIC ACID 1 MG TAB PO SCH (13:20)
--- NOTE | 2018-05-24 13:41 | P.PN ---
Subjective 52-year-old female status post date 2 sleeve gastrectomy denied any symptoms. 05/24/2018 Patient did pass gas did not move her bowel yet patient is being discharged today her discharge medications will be reviewed. Constitutional: Denied any fatigue denied any fever. Cardio vascular: denied any chest pain, palpitations Gastrointestinal denied any nausea vomiting Pulmonary: Denied any shortness of breath cough Neurologic denied any new focal deficits All inpatient medications were reviewed and appropriate changes in these medications as dictated in the interval history and assessment and plan. Objective - Vital Signs Vital signs: Vital Signs Temp 97.7 F 05/24/18 07:33 Pulse 88 05/24/18 09:42 Resp 18 05/24/18 07:33 BP 112/72 05/24/18 07:33 Pulse Ox 97 05/24/18 07:33 Intake & Output 05/23/18 05/24/18 05/24/18 18:59 06:59 18:59 Intake Total 1050 Balance 1050 Intake: Intake, IV Titration 800 Amount 0.9% NaCl with KCl 20 Meq 800 /l 1,000 ml @ 100 mls/hr IV .Q10H TAMIE Rx#: [id number] Oral 250 Other: Voiding Method Toilet Toilet Toilet # Voids 3 4 - Exam PHYSICAL EXAMINATION: GENERAL: The patient is alert and oriented x3, not in any acute distress. Well developed, well nourished. HEENT: Pupils are round and equally reacting to light. EOMI. No scleral icterus. No conjunctival pallor. Normocephalic, atraumatic. No pharyngeal erythema. No thyromegaly. CARDIOVASCULAR: S1 and S2 present. No murmurs, rubs, or gallops. PULMONARY: Chest is clear to auscultation, no wheezing or crackles. ABDOMEN: Soft, nontender, nondistended, normoactive bowel sounds. No palpable organomegaly. Because site areas are clean MUSCULOSKELETAL: No joint swelling or deformity. EXTREMITIES: No cyanosis, clubbing, or pedal edema. NEUROLOGICAL: Gross neurological examination did not reveal any focal deficits. SKIN: No rashes. - Labs CBC & Chem 7: 05/23/18 09:55 05/23/18 09:55 Assessment and Plan Plan: - postoperative day3 sleeve gastrectomy: Patient is clinically doing well 3 any sedation of diet as per primary service pain management due to prophylaxis per primary service. she is medically stable to be discharged -COPD without any acute exacerbation continue with as needed albuterol no further intervention is necessary at this time and is also on inhaled steroids which will be continued as well. -Seizure disorder patient was initiated back on her Keppra, Lamictal and Topamax -Bipolar disorder -Gastroesophageal reflux disease -Depression continue with paroxetine and the Topamax -Peripheral neuropathy for which patient is on gabapentin which will be continued -Hyperlipidemia -Sleep apnea for which patient uses CPAP machine at night which is being continued..
== END 2018-05-24 14:41 | disposition home or self-care (01) | DRG 621 ==
LOC: 2ORMAIN 08:34 → 4SSUR 14:32
PROVIDERS: ADMIT Surgery; ATTEND Surgery
PROC: 0BQT4ZZ Repair Diaphragm, Percutaneous Endoscopic Approach (ICD-10-PCS; 2018-05-21)
PROC: 0DB64Z3 Excision of Stomach, Percutaneous Endoscopic Approach, Vertical (ICD-10-PCS; principal; 2018-05-21 11:15)
DX: E66.01 Morbid (severe) obesity due to excess calories (principal); E78.00 Pure hypercholesterolemia, unspecified; E78.5 Hyperlipidemia, unspecified; F40.240 Claustrophobia; G20 Parkinson's disease; G40.909 Epilepsy, unspecified, not intractable, without status epilepticus; J44.9 Chronic obstructive pulmonary disease, unspecified; K21.9 Gastro-esophageal reflux disease without esophagitis; K22.4 Dyskinesia of esophagus; K29.70 Gastritis, unspecified, without bleeding; K44.9 Diaphragmatic hernia without obstruction or gangrene; M19.90 Unspecified osteoarthritis, unspecified site; I10 Essential (primary) hypertension; G47.33 Obstructive sleep apnea (adult) (pediatric); G62.9 Polyneuropathy, unspecified; G35 Multiple sclerosis; F41.9 Anxiety disorder, unspecified; F32.9 Major depressive disorder, single episode, unspecified; Z79.899 Other long term (current) drug therapy; Z88.1 Allergy status to other antibiotic agents; Z88.8 Allergy status to other drugs, medicaments and biological substances; Z96.651 Presence of right artificial knee joint; Z87.891 Personal history of nicotine dependence; Z87.01 Personal history of pneumonia (recurrent); Z87.11 Personal history of peptic ulcer disease; Z90.49 Acquired absence of other specified parts of digestive tract; Z80.3 Family history of malignant neoplasm of breast; Z82.49 Family history of ischemic heart disease and other diseases of the circulatory system
CPT/HCPCS: 74240; 80048; 80051; 82310; 82565; 83735; 84100; 84484; 84520; 85025; 88307; 93005; 94640; 94660; 94760; 94762

== ENCOUNTER → 2018-05-27 | Outpatient (CLI) | payer OTHER ==
[2018-05-27 13:58] VITALS: BMI 34.5
[2018-05-27 14:14] VITALS: BP 109/74; PULSE 93; TEMP 98.5
== END | disposition home or self-care (01) ==
LOC: BARWHC3 13:00
PROVIDERS: ATTEND Surgery
DX: E66.01 Morbid (severe) obesity due to excess calories (principal)
CPT/HCPCS: 97802; G0463; 99211

== ENCOUNTER → 2018-06-02 | Outpatient (CLI) | payer OTHER ==
[2018-06-02 11:35] VITALS: BP 98/64; PULSE 87; TEMP 97.4; BMI 34.1
== END | disposition home or self-care (01) ==
LOC: BARWHC3 09:46
PROVIDERS: ATTEND Surgery
DX: Z53.9 Procedure and treatment not carried out, unspecified reason (principal)

== ENCOUNTER → 2018-06-08 | Outpatient (CLI) | payer OTHER ==
[2018-06-08 16:05] VITALS: BP 95/66; PULSE 86; TEMP 98; BMI 33.7
--- NOTE | 2018-06-08 16:42 | P.BASOAP ---
Subjective Progress Note Date: 06/08/18 Principal diagnosis: Morbid obesity Patient returns today for her initial postoperative visit. Surgery was on 1221. Doing well since then. Denies pain. Had 1 episode of nausea but no vomiting. Denies reflux. Still on antiacids. Denies dysphagia. Tolerating liquids. Good protein and liquid intake. Blood pressure slightly low today but remains on diltiazem. No tachycardia. Objective - Vital Signs Vital signs: Vital Signs Temp 98.0 F 06/08/18 15:51 Pulse 86 06/08/18 15:51 Resp BP 95/66 06/08/18 15:51 Pulse Ox Intake & Output 06/07/18 06/08/18 06/08/18 18:59 06:59 18:59 Weight 86.591 kg - Exam Abdomen: Soft, nondistended, incisions clean and dry Assessment/Plan (1) Morbid obesity Narrative/Plan: Patient doing well postoperative. Continue gradually advancing diet. May resume activities. Continue antiacids. Consider reducing doubt Tiazac dose. Patient will discuss this with her primary care physician at her appointment in 2 days. Follow-up 2 weeks. Plan: Date: 06/08/18 Initial Weight: 104.462 kg Initial BMI: 40.8 Current Weight: 86.591 kg Current BMI: 33.7 Type of Surgery: Total Volume in Band: Previous Volume: Volume Removed: Volume Added: Band Size:
== END | disposition home or self-care (01) ==
LOC: BARWHC3 15:36
PROVIDERS: ATTEND Surgery
DX: E66.01 Morbid (severe) obesity due to excess calories (principal); Z68.33 Body mass index [BMI] 33.0-33.9, adult
CPT/HCPCS: 97803; G0463; 99211

== ENCOUNTER → 2018-06-22 | Outpatient (CLI) | payer OTHER ==
[2018-06-22 13:06] VITALS: BP 123/72; PULSE 79; RESP 16; TEMP 98.4; BMI 33.1
--- NOTE | 2018-06-22 15:05 | P.BASOAP ---
Subjective Progress Note Date: 06/22/18 Principal diagnosis: Morbid obesity Patient returns today for follow-up. Doing well at this time. She has lost another 4 pounds in the last 2 weeks. Her blood pressure is now normalized after stopping her antihypertensives. She has had 2 episodes of emesis since last time after eating quickly. She is a good liquid and protein intake. She is due for one month labs. Objective - Vital Signs Vital signs: Vital Signs Temp 98.4 F 06/22/18 13:03 Pulse 79 06/22/18 13:03 Resp 16 06/22/18 13:03 BP 123/72 06/22/18 13:03 Pulse Ox Intake & Output 06/21/18 06/22/18 06/22/18 18:59 06:59 18:59 Weight 84.822 kg - Exam Abdomen: Soft, nondistended, nontender, incision clean and dry Assessment/Plan (1) Morbid obesity Narrative/Plan: Patient will be seen by dietary today. Check one month labs. Continue dietary and exercise regimen. Continue antiacids. Follow-up 1 month. Plan: Date: 06/22/18 Initial Weight: 104.462 kg Initial BMI: 40.8 Current Weight: 84.822 kg Current BMI: 33.1 Type of Surgery: Total Volume in Band: Previous Volume: Volume Removed: Volume Added: Band Size:
== END ==
LOC: BARWHC3 12:25
PROVIDERS: ATTEND Surgery
DX: E66.01 Morbid (severe) obesity due to excess calories (principal); Z68.41 Body mass index [BMI] 40.0-44.9, adult
CPT/HCPCS: 97803; G0463; 99211

== ENCOUNTER → 2018-07-16 | Outpatient (CLI) | payer OTHER ==
[2018-07-16 09:52] LABS: HCT 39.5 % (34.0-46.0); HGB 12.4 gm/dL (11.4-16.0); Hypochromasia Slight; MCH 31.9 pg (25.0-35.0); MCHC 31.4 g/dL (31.0-37.0); MCV 101.4 fL (80.0-100.0); Macrocytosis Slight; Mean Platelet Volume 7.6; Platelet Count 169 k/uL (150-450); RBC 3.89 m/uL (3.80-5.40); RDW 13.5 % (11.5-15.5); WBC 3.8 k/uL (3.8-10.6)
[2018-07-16 18:12] LABS: Vitamin D 25 Hydroxy 45.2 ng/mL (30.0-100.0)
[2018-07-16 18:17] LABS: Folate, Serum 12.6 ng/mL
== END ==
LOC: LABWHC1 08:42
PROVIDERS: ATTEND Surgery
DX: Z48.815 Encounter for surgical aftercare following surgery on the digestive system (principal); E66.01 Morbid (severe) obesity due to excess calories; E55.9 Vitamin D deficiency, unspecified; K90.89 Other intestinal malabsorption; Z98.84 Bariatric surgery status
CPT/HCPCS: 36415; 82306; 82607; 82746; 83540; 84425; 85027

== ENCOUNTER → 2018-07-27 | Outpatient (CLI) | payer OTHER ==
[2018-07-27 13:13] VITALS: BP 127/77; PULSE 79; TEMP 98; BMI 32.9
--- NOTE | 2018-07-27 17:03 | P.BASOAP ---
Subjective Progress Note Date: 07/27/18 Principal diagnosis: Morbid obesity Patient seen on follow-up. Last seen in June. Has lost 1 pound since last visit. No increase in appetite. Mild nausea at times. No vomiting. No reflux. Still taking antiacids. Denies pain. Objective - Vital Signs Vital signs: Vital Signs Temp 98 F 07/27/18 13:11 Pulse 79 07/27/18 13:11 Resp BP 127/77 07/27/18 13:11 Pulse Ox Intake & Output 07/26/18 07/27/18 07/27/18 18:59 06:59 18:59 Weight 84.368 kg - Exam Abdomen: Soft, nontender, nondistended Assessment/Plan (1) Morbid obesity Narrative/Plan: Patient doing fairly well. She is a little discouraged with the weight loss over the last month or so. Will increase activity levels. We'll monitor calorie and protein intake. Dietary evaluation next visit. We'll check 3 months labs at that time. Plan: Date: 07/27/18 Initial Weight: 104.462 kg Initial BMI: 40.8 Current Weight: 84.368 kg Current BMI: 32.9 Type of Surgery: Total Volume in Band: Previous Volume: Volume Removed: Volume Added: Band Size:
== END ==
LOC: BARWHC3 12:43
PROVIDERS: ATTEND Surgery
DX: E66.01 Morbid (severe) obesity due to excess calories (principal); Z68.32 Body mass index [BMI] 32.0-32.9, adult
CPT/HCPCS: 99211

== ENCOUNTER → 2018-08-16 | Outpatient (CLI) | payer OTHER ==
--- NOTE | 2018-08-16 08:47 | XR ---
EXAMINATION TYPE: XR skull complete DATE OF EXAM: 08/16/2018 COMPARISON: NONE HISTORY: Bilateral implantable devices for Parkinson's. Patient states she is checking to see if her implants are involved with a recall. TECHNIQUE: 4 views of the skull were obtained. FINDINGS: There are biparietal intracranial implantable devices. No calcifications along the courses or discontinuity are seen. A specific type of device is not delineated radiographically. Calvarium is intact. Paranasal sinuses display mild right-sided mucosal thickening within the maxillary sinus. Re maining paranasal sinuses and mastoid air cells appear well aerated. IMPRESSION: Biparietal implantable devices appear radiographically intact without discontinuity or ca lcifications along the course. This specific type of device cannot be delineated radiographically and contact with the manufacture per the surgical history is recommended if there is concern for a recal l.
== END | disposition home or self-care (01) ==
LOC: RADXRMAIN 07:50
PROVIDERS: ATTEND Neurological Surgery
DX: Z09 Encounter for follow-up examination after completed treatment for conditions other than malignant neoplasm (principal); Z96.89 Presence of other specified functional implants
CPT/HCPCS: 70260

== ENCOUNTER → 2018-09-07 | Outpatient (CLI) | payer OTHER ==
[2018-09-07 13:35] VITALS: PULSE 79; RESP 16; TEMP 98
--- NOTE | 2018-09-07 16:20 | P.BASOAP ---
Subjective Progress Note Date: 09/07/18 Principal diagnosis: Morbid obesity Patient doing well at this time. At her labs done in mid July. Those looked good. Weight has stayed about the same. Low protein intake. Denies pain. No reflux. Still taking antiacids. Denies nausea or vomiting. Activity increasing. Objective - Vital Signs Vital signs: Vital Signs Temp 98 F 09/07/18 13:32 Pulse 79 09/07/18 13:32 Resp 16 09/07/18 13:32 BP Pulse Ox Intake & Output 09/06/18 09/07/18 09/07/18 18:59 06:59 18:59 Weight 81.647 kg - Exam Abdomen: Soft, nontender, nondistended Assessment/Plan (1) Morbid obesity Narrative/Plan: Continue increasing activity level. Continue antiacids. Follow-up 6 weeks. We'll check labs early September. Plan: Date: 09/07/18 Initial Weight: 104.462 kg Initial BMI: Current Weight: 81.647 kg Current BMI: Type of Surgery: Total Volume in Band: Previous Volume: Volume Removed: Volume Added: Band Size:
== END ==
LOC: BARWHC3 13:01
PROVIDERS: ATTEND Surgery
DX: E66.01 Morbid (severe) obesity due to excess calories (principal); Z68.31 Body mass index [BMI] 31.0-31.9, adult; Z79.899 Other long term (current) drug therapy
CPT/HCPCS: 99211

== ENCOUNTER → 2018-09-29 | Outpatient (CLI) | payer OTHER ==
[2018-09-29 12:08] LABS: HCT 39.3 % (34.0-46.0); HGB 12.4 gm/dL (11.4-16.0); Hypochromasia Slight; MCHC 31.5 g/dL (31.0-37.0); MCV 101.7 fL (80.0-100.0); Macrocytosis Slight; Mean Platelet Volume 7.2; Platelet Count 208 k/uL (150-450); RBC 3.86 m/uL (3.80-5.40); WBC 5.6 k/uL (3.8-10.6)
[2018-09-29 18:07] LABS: ALT 14 U/L (8-44); AST 24 U/L (13-35); Albumin/Globulin Ratio 2.26 (1.60-3.17); Alkaline Phosphatase 103 U/L (41-126); Bilirubin, Conjugated <0.20 mg/dL (0.20-0.40); Calcium 9.7 mg/dL (8.7-10.3); Carbon Dioxide 21.1 mmol/L (21.6-31.8); Chloride 111 mmol/L (96-109); Globulin 1.9 g/dL (1.6-3.3); Glucose 93 mg/dL (70-110); Potassium 4.8 mmol/L (3.5-5.5); Sodium 142 mmol/L (135-145); Total Bilirubin 0.3 mg/dL (0.3-1.2); Total Protein 6.2 g/dL (6.2-8.2)
[2018-09-29 18:28] LABS: Vitamin D 25 Hydroxy 41.8 ng/mL (30.0-100.0)
[2018-09-29 19:06] LABS: Folate, Serum 20.6 ng/mL
[2018-10-01 13:57] LABS: Hepatits C Virus RNA Not detected (Not detected); Hepatits C Virus RNA, Quant <12 IU/mL (<12); LOG HCV IU/mL <1.08 (<1.08)
[2018-10-01 15:22] LABS: Vit B1(Thiamine) 128 ug/L (38-122)
== END | disposition home or self-care (01) ==
LOC: LABWHC1 10:30
PROVIDERS: ATTEND Physician Assistant
DX: B18.2 Chronic viral hepatitis C (principal); E66.01 Morbid (severe) obesity due to excess calories; D50.8 Other iron deficiency anemias; E55.9 Vitamin D deficiency, unspecified
CPT/HCPCS: 36415; 80053; 82248; 82306; 82607; 82746; 83540; 84425; 85027; 87522

== ENCOUNTER → 2018-11-09 | Outpatient (CLI) | payer OTHER ==
--- NOTE | 2018-11-09 15:30 | P.BASOAP ---
Subjective Progress Note Date: 11/09/18 Principal diagnosis: Morbid obesity Patient returns today for 6 month recheck. Doing well at this time. Had labs checked last months. Still taking antiacids for chronic GERD symptoms. No dysphagia or vomiting. She has gained 8 pounds. Working out more particularly with weights. Low protein intake primarily on the basis of financial costs. Objective - Exam Abdomen: Soft, nontender, nondistended Assessment/Plan (1) Morbid obesity Narrative/Plan: Continue exercise and patient will work on increasing protein intake. Continue antiacids for chronic reflux. Follow-up one month. Plan: Date: Initial Weight: 104.462 kg Initial BMI: Current Weight: Current BMI: Type of Surgery: Total Volume in Band: Previous Volume: Volume Removed: Volume Added: Band Size:
[2018-11-09 15:35] VITALS: BMI 33.3
[2018-11-09 16:48] VITALS: BP 129/84; PULSE 75; TEMP 98.2
== END | disposition home or self-care (01) ==
LOC: BARWHC3 14:12
PROVIDERS: ATTEND Surgery
DX: E66.01 Morbid (severe) obesity due to excess calories (principal); K21.9 Gastro-esophageal reflux disease without esophagitis; Z68.33 Body mass index [BMI] 33.0-33.9, adult
CPT/HCPCS: 97803; G0463; 99211

== ENCOUNTER 2018-12-19 12:52 | Emergency (ER) | payer OTHER ==
[2018-12-19 13:33] VITALS: BP 108/77; PULSE 84; RESP 18; TEMP 97.6
[2018-12-19] MEDS ORDERED: KETOROLAC 30 MG/ML 1 ML VIAL IM STA (14:20)
[2018-12-19] MEDS ORDERED: DIAZEPAM 5 MG/ML 2 ML INJ IM STA (14:20)
[2018-12-19] MEDS ORDERED: LIDOCAINE 5% PATCH TOPICAL STA (14:20)
--- NOTE | 2018-12-19 14:55 | ED ---
Back Pain HPI - General Chief Complaint: Back Pain/Injury Stated Complaint: Back pain Time Seen by Provider: 12/19/18 14:06 Source: patient Limitations: no limitations - History of Present Illness Initial Comments: Patient is a 53-year-old female with history of herniated lumbar disks presents emergency Department presents emergency Department with low back pain. Patient reports the pain started a approximately 2 weeks ago and is not resolving. Patient does have chronic low back pain with intermittent flareups. Patient reports the pain is exacerbated with flexion and extension. Patient reports the pain is alleviated when laying in supine position a 45. Patient reports taking a low dose hydrocodone at 0500 today. Patient also reports the pain travels from the left lumbosacral region along the posterior aspect of the left upper leg. Patient denies saddle paresthesias, urinary or bladder incontinence. No red flag signs. - Related Data Home Medications Medication Instructions Recorded Confirmed lamoTRIgine [LaMICtal] 100 mg PO BID 06/02/14 11/09/18 Diltiazem HCl 90 mg PO HS 03/13/17 11/09/18 Folic Acid 1 mg PO DAILY 03/13/17 11/09/18 PARoxetine [Paxil] 10 mg PO DAILY 03/13/17 11/09/18 Prochlorperazine [Compazine] 5 mg PO BID 03/13/17 11/09/18 Sodium Bicarbonate Tab 650 mg PO HS 03/13/17 11/09/18 Topiramate [Topamax] 100 mg PO BID PRN 03/13/17 11/09/18 levETIRAcetam [Keppra] 500 mg PO BID 03/13/17 11/09/18 HYDROcodone/APAP 7.5-325MG [[place] 1 tab PO TID PRN 12/24/17 11/09/18 7.5-325] Magnesium Oxide [Mag-Ox] 400 mg PO DAILY 12/24/17 11/09/18 PARoxetine HCL 40 mg PO HS 01/14/18 11/09/18 Albuterol Inhaler [Ventolin Hfa 2 puff INHALATION RT-Q6H PRN 05/19/18 11/09/18 Inhaler] Beclomethasone Dip 80 Mcg/Puff 1 puff INHALATION RT-BID 05/19/18 11/09/18 [Qvar 80 mcg] Ranitidine HCl [Zantac] 150 mg PO BID 05/19/18 11/09/18 rOPINIRole HCL 5 mg PO TID 05/19/18 11/09/18 Gabapentin [Neurontin] 400 mg PO TID 05/21/18 11/09/18 Previous Rx's Medication Instructions Recorded Cyclobenzaprine [Flexeril] 10 mg PO TID PRN #15 tab 12/19/18 Allergies Allergy/AdvReac Type Severity Reaction Status Date / Time metoclopramide HCl Allergy Severe Anaphylaxis Verified 12/19/18 13:31 [From Reglan] adhesive Allergy Rash/Hives Verified 12/19/18 13:31 azithromycin [From Zithromax] AdvReac Itching Verified 12/19/18 13:31 Review of Systems ROS Statement: Those systems with pertinent positive or pertinent negative responses have been documented in the HPI. ROS Other: All systems not noted in ROS Statement are negative. Past Medical History Past Medical History: Asthma, COPD, GERD/Reflux, Hyperlipidemia, Hypertension, Liver Disease, Neurologic Disorder, Osteoarthritis (OA), Osteoarthritis (OA), Pn eumonia, Renal Disease, Seizure Disorder, Sleep Apnea/CPAP/BIPAP Additional Past Medical History / Comment(s): Hx hepatitis c (treated and resolved), questionable MS, bilateral carpal tunnel, Parkinsons Disease, (patient states underwent Deep Brain Stimulation (chip implanted into brain to promote stimulation and treat Parkinson's) in January 2018. States has generators that she will be shutting off for this procedure. Claustrophobic Last seizure 3 yrs ago. Hx ulcers, anemia.Currently not using CPAP, but will be fitted for a mask prior to this procedure. Chronic kidney disease. Hx Pneumonia yrs ago. History of Any Multi-Drug Resistant Organisms: None Reported Past Surgical History: Bariatric Surgery, Section, Cholecystectomy, Joint Replacement, Orthopedic Surgery, Tonsillectomy Additional Past Surgical History / Comment(s): Kidney and liver biopsy, Section X4, right knee replacement X2, 7 ARTHROSCOPIC KNEE SURGERIES - 6 ON THE RIGHT AND 1 ON THE LEFT, left ankle surgery. sleeve gastrectomy 05-21-18 Past Anesthesia/Blood Transfusion Reactions: Motion Sickness Additional Past Anesthesia/Blood Transfusion Reaction / Comment(s): Claustrophobic. Past Psychological History: Anxiety Smoking Status: Former smoker Past Alcohol Use History: None Reported Past Drug Use History: None Reported - Past Family History Brother(s) Family Medical History: Pulmonary Embolus Sister(s) Family Medical History: Cancer Additional Family Medical History / Comment(s): Breast cancer. Father Family Medical History: Hypertension, Osteoarthritis (OA) Mother Family Medical History: Cancer, Hypertension Additional Family Medical History / Comment(s): Breast Cancer. General Exam - General Exam Comments Initial Comments: General: Well-developed well-nourished distress HEENT: Normocephalic/atraumatic, PERLL, pharynx erythema, swallowing well, EAC no erythema, no exudates, TM clear, no cervical lymph nodes Neck: Supple, nontender, trachea midline Chest/Lungs: Normal respirations, no signs of respiratory distress clear to auscultation bilaterally no wheezes, rales, rhonchi Cardiac: Regular rate and rhythm, normal S1-S2, no murmurs rubs or gallops Abdomen/GI: Soft nontender, bowel sounds equal or quadrant x4, no guarding, no rebound no CVA tenderness Musculoskeletal: Vertebral and paraspinal tenderness in the lumbosacral region that radiates along the posterior aspect of the left upper leg, positive leg raise test, Skin: Warmth, no rashes or lesions, no cyanosis or diaphoresis Neurologic: AAO x 3, CN 2-12 intact, Psychiatric: Mood and affect normal, judgment normal Limitations: no limitations Course Vital Signs 12/19/18 13:31 Temperature 97.6 F Pulse Rate 84 Respiratory 18 Rate Blood Pressure 108/77 O2 Sat by Pulse 95 Oximetry Medical Decision Making - Medical Decision Making Patient is a 53-year-old female with history of a herniated disc is presenting to emergency Department with low back pain. Based on history and physical examination I suspect the patient to have a flareup of her chronic back pain secondary to herniated disc. The disc herniations were diagnosed using MRI imaging. Patient was given Toradol, Lidoderm patch, Valium. On reevaluation patient reports feeling much better and is ready go home. No imaging is warranted at this time. Patient will be discharged with Flexeril and advised not to operate heavy machinery or drive while taking medication. Patient advised to follow-up with orientation & mobility specialist. Strict return parameters were thoroughly discussed the patient was understanding and agreeable. Case discussed with physician. Disposition Clinical Impression: Low back pain Disposition: HOME SELF-CARE Condition: Stable Instructions (If sedation given, give patient instructions): Acute Low Back Pain (ED) Additional Instructions: Please take prescribed medication as directed. Please do not drive heavy machinery while taking medication. Please follow-up with orientation & mobility specialist. Please return to emergency department if symptoms worsen. Prescriptions: Cyclobenzaprine [Flexeril] 10 mg PO TID PRN #15 tab PRN Reason: Muscle Spasm Is patient prescribed a controlled substance at d/c from ED?: No Referrals: Caroline Munoz MD [Primary Care Provider] - 1-2 days Kal Hannah MD [STAFF PHYSICIAN] - 1-2 days Time of Disposition: 15:13
== END 2018-12-19 15:31 | disposition home or self-care (01) ==
LOC: EC 12:52
DX: M54.5 Low back pain (principal); G40.909 Epilepsy, unspecified, not intractable, without status epilepticus; F41.9 Anxiety disorder, unspecified; G47.30 Sleep apnea, unspecified; I12.9 Hypertensive chronic kidney disease with stage 1 through stage 4 chronic kidney disease, or unspecified chronic kidney disease; N18.9 Chronic kidney disease, unspecified; K21.9 Gastro-esophageal reflux disease without esophagitis; Z79.899 Other long term (current) drug therapy; Z88.8 Allergy status to other drugs, medicaments and biological substances; Z88.1 Allergy status to other antibiotic agents; Z91.048 Other nonmedicinal substance allergy status; Z98.84 Bariatric surgery status; Z96.651 Presence of right artificial knee joint
CPT/HCPCS: 99283; 96372 ×2; J3360; J1885

== ENCOUNTER → 2019-01-25 | Outpatient (CLI) | payer OTHER ==
[2019-01-25 14:21] VITALS: BP 131/84; PULSE 76; RESP 16; TEMP 97.4; BMI 34.0
--- NOTE | 2019-01-25 15:32 | P.BASOAP ---
Subjective Progress Note Date: 01/25/19 Principal diagnosis: Morbid obesity Patient returns for recheck. Doing well at this time. Has had slight weight gain although exercising much more than she had been previously. Recently started on antibiotics for walking pneumonia. Does have GERD symptoms and that she has taken her antiacids. Occasional episodes of dry heaves since starting her antibiotics. Denies pain. Objective - Vital Signs Vital signs: Vital Signs Temp 97.4 F L 01/25/19 14:18 Pulse 76 01/25/19 14:18 Resp 16 01/25/19 14:09 BP 131/84 01/25/19 14:18 Pulse Ox Intake & Output 01/24/19 01/25/19 01/25/19 18:59 06:59 18:59 Weight 87.09 kg - Exam Abdomen: Soft, nontender, nondistended Assessment/Plan (1) Morbid obesity Narrative/Plan: Patient overall doing fairly well. Slight weight gain since last visit. Continue exercise regimen. Patient met with the dietitian today and some modifications were made. States she usually eats between 600 and thousand calories per day. Continue antiacids for now. Follow-up 2 months. We'll check one year labs around that time. Plan: Date: 01/25/19 Initial Weight: 104.462 kg Initial BMI: 40.8 Current Weight: 87.09 kg Current BMI: 34.0 Type of Surgery: Total Volume in Band: Previous Volume: Volume Removed: Volume Added: Band Size:
== END | disposition home or self-care (01) ==
LOC: BARWHC3 13:36
PROVIDERS: ATTEND Surgery
DX: E66.01 Morbid (severe) obesity due to excess calories (principal); Z68.34 Body mass index [BMI] 34.0-34.9, adult; Z79.2 Long term (current) use of antibiotics
CPT/HCPCS: 97803; G0463; 99211

== ENCOUNTER → 2019-04-04 | Outpatient (CLI) | payer OTHER ==
--- NOTE | 2019-04-04 08:50 | CT ---
EXAMINATION TYPE: CT lumbar spine wo con DATE OF EXAM: 04/04/2019 COMPARISON: None HISTORY: 53-year-old female Low back pain TECHNIQUE: Contiguous axial scanning of the lumbar spine without IV contrast. Coronal and sagittal re constructions performed. CT DLP: 953.1 mGycm Automated exposure control for dose reduction was used. FINDINGS: Vertebral body heights are preserved and alignment is maintained. Facet arthropathy lower lumbar spine. Mild multilevel degenerative disc disease with a bulging. However, there is severe degenerative disc disease at L5-S1 with loss of disc height, vacuum phenomen on, and large diffusely bulging disc extending into the neuroforamen. There is some attenuation of the thecal sac at this level without significant spinal canal stenosis. Moderate bilateral neural foraminal stenosis. Disc material may abut the bilateral traversing S1 nerv e roots. Bulging discs also contribute to mild neural foraminal narrowing at L4-L5 on both sides. Nonobstructing renal calculi measuring up to 3 mm on either side. IMPRESSION: 1. NO VERTEBRAL COMPRESSION COLLAPSE OR MALALIGNMENT. 2. SEVERE DEGENERATIVE DISC DISEASE AT L5-S1 WITH DIFFUSELY BULGING DISC CONTRIBUTING TO MODERATE AJAY ATERAL NEURAL FORAMINAL STENOSES. DISC MATERIAL PROBABLY ABUTS THE EXITING L5 AND BILATERAL TRAVERSIN G S1 NERVE ROOTS. 3. NO SIGNIFICANT SPINAL CANAL STENOSIS SEEN.
== END | disposition home or self-care (01) ==
LOC: RADCTMAIN 07:48
PROVIDERS: ATTEND Psychiatry & Neurology Neurology
DX: M51.36 Other intervertebral disc degeneration, lumbar region (principal); M51.37 Other intervertebral disc degeneration, lumbosacral region; M48.061 Spinal stenosis, lumbar region without neurogenic claudication
CPT/HCPCS: 72131

== ENCOUNTER → 2019-05-17 | Outpatient (CLI) | payer OTHER ==
[2019-05-17 13:52] VITALS: BP 132/80; PULSE 91; RESP 16; TEMP 98.2; BMI 32.8
--- NOTE | 2019-05-17 21:06 | P.BASOAP ---
Subjective Progress Note Date: 05/17/19 Principal diagnosis: Morbid obesity Patient returns for reevaluation. Last seen in December. She has lost 7 pounds since last visit. She is doing less exercise because of back pain. She is seeing a back surgeon on 07/04. Increased GERD symptoms at times. Takes Zantac and omeprazole. Objective - Vital Signs Vital signs: Vital Signs Temp 98.2 F 05/17/19 13:47 Pulse 91 05/17/19 13:47 Resp 16 05/17/19 13:47 BP 132/80 05/17/19 13:47 Pulse Ox Intake & Output 05/17/19 05/17/19 05/18/19 06:59 18:59 06:59 Weight 83.915 kg - Exam Abdomen: Soft, nontender, nondistended Assessment/Plan (1) Morbid obesity Narrative/Plan: Patient overall doing fairly well. Continue dietary and exercise regimen. Await evaluation by back surgeon. Add Carafate. If symptoms persist we'll plan EGD. Follow-up 2-3 months. Plan: Date: 05/17/19 Initial Weight: 104.462 kg Initial BMI: 40.8 Current Weight: 83.915 kg Current BMI: 32.8 Type of Surgery: Vertical Sleeve Gastrectomy Total Volume in Band: Previous Volume: Volume Removed: Volume Added: Band Size:
== END | disposition home or self-care (01) ==
LOC: BARWHC3 13:37
PROVIDERS: ATTEND Surgery
DX: E66.01 Morbid (severe) obesity due to excess calories (principal); K21.9 Gastro-esophageal reflux disease without esophagitis; Z68.32 Body mass index [BMI] 32.0-32.9, adult
CPT/HCPCS: 97803; G0463; 99211

== ENCOUNTER → 2019-06-13 | Outpatient (CLI) | payer OTHER ==
[2019-06-13 11:27] LABS: HCT 36.7 % (34.0-46.0); HGB 12.4 gm/dL (11.4-16.0); MCH 33.8 pg (25.0-35.0); MCHC 33.7 g/dL (31.0-37.0); MCV 100.1 fL (80.0-100.0); Platelet Count 189 k/uL (150-450); RBC 3.66 m/uL (3.80-5.40); RDW 13.2 % (11.5-15.5); WBC 4.1 k/uL (3.8-10.6)
[2019-06-13 17:54] LABS: ALT 15 U/L (8-44); AST 22 U/L (13-35); African American GFR (CKD) 59.3 (60.0-200.0); Albumin/Globulin Ratio 2.16 (1.60-3.17); Alkaline Phosphatase 115 U/L (41-126); BUN/Creat Ratio 11.67 Ratio (12.00-20.00); Bilirubin, Conjugated <0.20 mg/dL (0.20-0.40); Calcium 9.1 mg/dL (8.7-10.3); Carbon Dioxide 23.4 mmol/L (21.6-31.8); Chloride 112 mmol/L (96-109); Globulin 1.9 g/dL (1.6-3.3); Glucose 89 mg/dL (70-110); Iron 50 ug/dL (50-170); Non-African American GFR(CKD) 51.2 (60.0-200.0); Potassium 3.6 mmol/L (3.5-5.5); Sodium 144 mmol/L (135-145); Total Bilirubin 0.4 mg/dL (0.3-1.2)
== END | disposition home or self-care (01) ==
LOC: LABWHC1 10:21
DX: E66.01 Morbid (severe) obesity due to excess calories (principal); K90.89 Other intestinal malabsorption; E55.9 Vitamin D deficiency, unspecified; B18.2 Chronic viral hepatitis C
CPT/HCPCS: 36415; 80053; 82248; 82306; 82607; 82746; 83540; 84425; 85027; 87522

== ENCOUNTER → 2019-11-28 | Outpatient (CLI) | payer OTHER ==
--- NOTE | 2019-11-28 10:42 | CT ---
EXAMINATION TYPE: CT brain wo con DATE OF EXAM: 11/28/2019 COMPARISON: CT brain 03/18/2017 HISTORY: Unspecified convulsions. Patient complains of falling out of bed x [address] DLP: 1090.4 mGycm Automated exposure control for dose reduction was used. CT of the brain performed using departmental protocol FINDINGS: The are postprocedural changes noted, probes have been placed bilaterally, there are frontal cranioto mies present with leads coursing to the level of the cerebral peduncles, there is streak artifact pre sent. White matter low-attenuation is again noted bilaterally in a patchy distribution. There is no h emorrhage or hydrocephalus. Cerebral vascular calcifications are present. Paranasal sinuses and masto id air cells are well aerated. The [place] shows low attenuation similar to prior. IMPRESSION: POSTPROCEDURAL CHANGES. NONSPECIFIC WHITE MATTER DEMYELINATION AND BRAIN FINDINGS SHOW A SIMILAR APPE ARANCE.
== END | disposition home or self-care (01) ==
LOC: RADCTMAIN 09:12
PROVIDERS: ATTEND Psychiatry & Neurology Neurology
DX: R90.82 White matter disease, unspecified (principal); Z98.890 Other specified postprocedural states; G37.8 Other specified demyelinating diseases of central nervous system; Z88.8 Allergy status to other drugs, medicaments and biological substances; Z88.1 Allergy status to other antibiotic agents
CPT/HCPCS: 70450

== ENCOUNTER 2019-12-07 14:21 | Observation (INO) | payer OTHER ==
[2019-12-07] MEDS ORDERED: SODIUM CHLORIDE 0.9% 1,000 ML IV STA (14:36)
[2019-12-07] MEDS ORDERED: SODIUM CHLORIDE 0.9% 500 ML 500 ML IV STA (14:36)
--- NOTE | 2019-12-07 15:20 | ED ---
General Adult HPI - General Chief complaint: Altered Mental Status Stated complaint: Lethargic Time Seen by Provider: 12/07/19 14:26 Source: patient, EMS, RN notes reviewed, old records reviewed Mode of arrival: EMS Limitations: altered mental status - History of Present Illness Initial comments: 54 yo female presenting with fever, altered level of consciousness. Patient has known seizure disorder, she's had multiple seizures over the past several weeks. She's had episodes similar to this in the past of unresponsiveness. She was taken by a family member to a dentist appointment but due to her change in mental status she was unable to have this appointment. She was taken home and later evaluated by her son who felt that EMS should be called given her level of consciousness. There was no reported injury. Patient is alert and oriented 2 with time my evaluation. She has no physical complaints, no nausea vomiting, no pain complaints. She was found in a warm environment, and was febrile by EMS. - Related Data Home Medications Medication Instructions Recorded Confirmed lamoTRIgine [LaMICtal] 100 mg PO BID 06/02/14 12/07/19 Prochlorperazine [Compazine] 5 mg PO BID 03/13/17 12/07/19 Topiramate [Topamax] 100 mg PO BID PRN 03/13/17 12/07/19 Magnesium Oxide [Mag-Ox] 400 mg PO DAILY 12/24/17 12/07/19 PARoxetine HCL 40 mg PO HS 01/14/18 12/07/19 Gabapentin [Neurontin] 400 mg PO TID 05/21/18 12/07/19 Albuterol Sulfate [Ventolin HFA] 2 puff INHALATION RT-QID PRN 12/07/19 12/07/19 Baclofen [Lioresal] 10 mg PO BID PRN 12/07/19 12/07/19 Beclomethasone Dip 80 Mcg/Puff 1 puff INHALATION RT-BID 12/07/19 12/07/19 [Qvar 80 mcg] Docusate [Colace] 100 mg PO BID PRN 12/07/19 12/07/19 Ergocalciferol (Vitamin D2) 50,000 unit PO Q14D 12/07/19 12/07/19 [Drisdol] Fluticasone Nasal [place] [Flonase 2 spr EA NOSTRIL DAILY PRN 12/07/19 12/07/19 Nasal [place]] Loratadine 10 mg PO DAILY 12/07/19 12/07/19 Meloxicam [Mobic] 7.5 mg PO HS 12/07/19 12/07/19 Montelukast Sodium [Singulair] 10 mg PO HS 12/07/19 12/07/19 Omeprazole 20 mg PO BID 12/07/19 12/07/19 Umeclidinium [place] [Incruse 1 puff INHALATION RT-DAILY 12/07/19 12/07/19 Ellipta] diphenhydrAMINE [Benadryl] 25 mg PO DAILY PRN 12/07/19 12/07/19 levETIRAcetam [Keppra] 750 mg PO BID 12/07/19 12/07/19 oxyCODONE-APAP 10-325MG [Percocet 1 tab PO TID 12/07/19 12/07/19 10-325 mg] predniSONE See Taper PO DAILY 12/07/19 12/07/19 rOPINIRole HCL 3 mg PO TID 12/07/19 12/07/19 Allergies Allergy/AdvReac Type Severity Reaction Status Date / Time metoclopramide HCl Allergy Severe Anaphylaxis Verified 12/07/19 17:21 [From Reglan] adhesive Allergy Rash/Hives Verified 12/07/19 17:21 (paper tape ok) azithromycin [From Zithromax] AdvReac Itching Verified 12/07/19 17:21 sucralfate [From Carafate] AdvReac Nausea & Verified 12/07/19 17:21 Vomiting Review of Systems ROS Statement: Those systems with pertinent positive or pertinent negative responses have been documented in the HPI. ROS Other: All systems not noted in ROS Statement are negative. Past Medical History Past Medical History: Asthma, COPD, GERD/Reflux, Hyperlipidemia, Hypertension, Liver Disease, Neurologic Disorder, Osteoarthritis (OA), Osteoarthritis (OA), Pneumonia, Renal Disease, Seizure Disorder, Sleep Apnea/CPAP/BIPAP Additional Past Medical History / Comment(s): Hx hepatitis c (treated and resolved), questionable MS, bilateral carpal tunnel, Parkinsons Disease, (patient states underwent Deep Brain Stimulation (chip implanted into brain to promote stimulation and treat Parkinson's) in January 2018. States has generators that she will be shutting off for this procedure. Claustrophobic Last seizure 3 yrs ago. Hx ulcers, anemia.Currently not using CPAP, but will be fitted for a mask prior to this procedure. Chronic kidney disease. Hx Pneumonia yrs ago. History of Any Multi-Drug Resistant Organisms: None Reported Past Surgical History: Bariatric Surgery, Section, Cholecystectomy, Joint Replacement, Orthopedic Surgery, Tonsillectomy Additional Past Surgical History / Comment(s): Kidney and liver biopsy, Section X4, right knee replacement X2, 7 ARTHROSCOPIC KNEE SURGERIES - 6 ON THE RIGHT AND 1 ON THE LEFT, left ankle surgery. sleeve gastrectomy 05-21-18 Past Anesthesia/Blood Transfusion Reactions: Motion Sickness Additional Past Anesthesia/Blood Transfusion Reaction / Comment(s): Claustrophobic. Past Psychological History: Anxiety Smoking Status: Former smoker Past Alcohol Use History: None Reported Past Drug Use History: None Reported - Past Family History Brother(s) Family Medical History: Pulmonary Embolus Sister(s) Family Medical History: Cancer Additional Family Medical History / Comment(s): Breast cancer. Father Family Medical History: Hypertension, Osteoarthritis (OA) Mother Family Medical History: Cancer, Hypertension Additional Family Medical History / Comment(s): Breast Cancer. General Exam Limitations: altered mental status General appearance: alert, in no apparent distress Head exam: Present: atraumatic, normocephalic Eye exam: Present: normal appearance, PERRL ENT exam: Present: mucous membranes dry Neck exam: Present: normal inspection. Absent: tenderness, meningismus Respiratory exam: Present: normal lung sounds bilaterally. Absent: respiratory distress, wheezes Cardiovascular Exam: Present: normal rhythm, tachycardia GI/Abdominal exam: Present: soft. Absent: distended, tenderness, guarding Neurological exam: Present: alert. Absent: oriented X3, motor sensory deficit Psychiatric exam: Present: normal affect, normal mood Skin exam: Present: warm, dry, intact. Absent: cyanosis, diaphoretic Course Vital Signs 12/07/19 12/07/19 12/07/19 14:29 14:36 16:29 Temperature 103.1 F H 101.3 F H Pulse Rate 111 H Respiratory 18 18 18 Rate Blood Pressure 107/84 O2 Sat by Pulse 96 Oximetry Medical Decision Making - Medical Decision Making 54-year-old female presenting to the emergency department with fever and altered mental status. Patient appears very dehydrated, suspect heatstroke, workup was initiated, patient is in sinus rhythm with stable vitals. She has a nonfocal neurologic exam, no nuchal rigidity. Patient was given IV hydration and temperature is down trending without other specific intervention. Head CT negative for intracranial hemorrhage or mass effect, chest x-ray negative for focal pneumonia or acute findings per patient has a normal white blood cell count 6.5, stable hemoglobin, urinalysis negative for infection, she is in renal failure with a creatinine of 1.66 her potassium is low at 3.0 which is replaced. She is acidotic with a CO2 of 11. She's given continuous IV hydration, lites replacement suspect that her presentation is most consistent with heatstroke, dehydration and acute renal failure. Her mental status improves after hydration she is alert and oriented, continues to have a nonfocal neurologic exam. She will be admitted for IV hydration, repeat laboratory testing will be obtained in the morning. Case is discussed with Dr. Augustin who will admit. - Lab Data Result diagrams: 12/07/19 15:45 12/07/19 15:37 Lab Results 12/07/19 12/07/19 12/07/19 Range/Units 15:30 15:37 15:45 WBC 6.5 (3.8-10.6) k/uL RBC 4.68 (3.80-5.40) m/uL Hgb 14.6 (11.4-16.0) gm/dL Hct 45.2 (34.0-46.0) % MCV 96.5 (80.0-100.0) fL MCH 31.3 (25.0-35.0) pg MCHC 32.4 (31.0-37.0) g/dL RDW 13.3 (11.5-15.5) % Plt Count 195 (150-450) k/uL Neutrophils % 78 % Lymphocytes % 13 % Monocytes % 8 % Eosinophils % 0 % Basophils % 0 % Neutrophils # 5.1 (1.3-7.7) k/uL Lymphocytes # 0.8 L (1.0-4.8) k/uL Monocytes # 0.5 (0-1.0) k/uL Eosinophils # 0.0 (0-0.7) k/uL Basophils # 0.0 (0-0.2) k/uL PT (9.0-12.0) sec INR (<1.2) APTT (22.0-30.0) sec ABG Lactic Acid 1.4 (0.5-1.6) mmol/L Sodium 140 (137-145) mmol/L Potassium 3.0 L (3.5-5.1) mmol/L Chloride 113 H (98-107) mmol/L Carbon Dioxide 11 L (22-30) mmol/L Anion Gap 16 mmol/L BUN 25 H (7-17) mg/dL Creatinine 1.66 H (0.52-1.04) mg/dL Est GFR (CKD-EPI)AfAm 40 (>60 ml/min/1.73 sqM) Est GFR (CKD-EPI)NonAf 34 (>60 ml/min/1.73 sqM) Glucose 123 H (74-99) mg/dL Calcium 9.5 (8.4-10.2) mg/dL Magnesium 2.0 (1.6-2.3) mg/dL Total Bilirubin 0.9 (0.2-1.3) mg/dL AST 67 H (14-36) U/L ALT 25 (4-34) U/L Alkaline Phosphatase 116 (38-126) U/L Total Protein 7.8 (6.3-8.2) g/dL Albumin 4.6 (3.5-5.0) g/dL Salicylates <1.0 mg/dL Acetaminophen <10.0 ug/mL 12/07/19 Range/Units 15:45 WBC (3.8-10.6) k/uL RBC (3.80-5.40) m/uL Hgb (11.4-16.0) gm/dL Hct (34.0-46.0) % MCV (80.0-100.0) fL MCH (25.0-35.0) pg MCHC (31.0-37.0) g/dL RDW (11.5-15.5) % Plt Count (150-450) k/uL Neutrophils % % Lymphocytes % % Monocytes % % Eosinophils % % Basophils % % Neutrophils # (1.3-7.7) k/uL Lymphocytes # (1.0-4.8) k/uL Monocytes # (0-1.0) k/uL Eosinophils # (0-0.7) k/uL Basophils # (0-0.2) k/uL PT 11.6 (9.0-12.0) sec INR 1.1 (<1.2) APTT 23.7 (22.0-30.0) sec ABG Lactic Acid (0.5-1.6) mmol/L Sodium (137-145) mmol/L Potassium (3.5-5.1) mmol/L Chloride (98-107) mmol/L Carbon Dioxide (22-30) mmol/L Anion Gap mmol/L BUN (7-17) mg/dL Creatinine (0.52-1.04) mg/dL Est GFR (CKD-EPI)AfAm (>60 ml/min/1.73 sqM) Est GFR (CKD-EPI)NonAf (>60 ml/min/1.73 sqM) Glucose (74-99) mg/dL Calcium (8.4-10.2) mg/dL Magnesium (1.6-2.3) mg/dL Total Bilirubin (0.2-1.3) mg/dL AST (14-36) U/L ALT (4-34) U/L Alkaline Phosphatase (38-126) U/L Total Protein (6.3-8.2) g/dL Albumin (3.5-5.0) g/dL Salicylates mg/dL Acetaminophen ug/mL Disposition Clinical Impression: Heat stroke, Hypokalemia, YUDITH (acute kidney injury) Disposition: ADMITTED IP TO THIS [facility] Condition: Stable Is patient prescribed a controlled substance at d/c from ED?: No Referrals: Caroline Munoz MD [Primary Care Provider] - 1-2 days Decision to Admit Reason: Admit from EC Decision Date: 12/07/19 Decision Time: 18:36
[2019-12-07 15:54] LABS: Basophils % (A) 0 %; Eosinophils % (A) 0 %; HCT 45.2 % (34.0-46.0); HGB 14.6 gm/dL (11.4-16.0); Lymphocytes # (A) 0.8 k/uL (1.0-4.8); Lymphocytes % (A) 13 %; MCH 31.3 pg (25.0-35.0); MCHC 32.4 g/dL (31.0-37.0); MCV 96.5 fL (80.0-100.0); Mean Platelet Volume 7.9; Monocytes # (A) 0.5 k/uL (0-1.0); Monocytes % (A) 8 %; Neutrophils # (A) 5.1 k/uL (1.3-7.7); Neutrophils % (A) 78 %; Platelet Count 195 k/uL (150-450); RBC 4.68 m/uL (3.80-5.40); RDW 13.3 % (11.5-15.5); WBC 6.5 k/uL (3.8-10.6)
[2019-12-07 16:01] LABS: ALT 25 U/L (4-34); AST 67 U/L (14-36); Acetaminophen <10.0 ug/mL; African American GFR (CKD) 40 (>60 ml/min/1.73 sqM); Albumin 4.6 g/dL (3.5-5.0); Alkaline Phosphatase 116 U/L (38-126); Anion Gap 16 mmol/L; Blood Urea Nitrogen 25 mg/dL (7-17); Calcium 9.5 mg/dL (8.4-10.2); Carbon Dioxide 11 mmol/L (22-30); Chloride 113 mmol/L (98-107); Glucose 123 mg/dL (74-99); Non-African American GFR(CKD) 34 (>60 ml/min/1.73 sqM); Salicylate <1.0 mg/dL; Sodium 140 mmol/L (137-145); Total Bilirubin 0.9 mg/dL (0.2-1.3); Total Protein 7.8 g/dL (6.3-8.2)
[2019-12-07 16:03] LABS: INR 1.1 (<1.2); Partial Thromboplastin Time 23.7 sec (22.0-30.0); Prothrombin Time 11.6 sec (9.0-12.0)
--- NOTE | 2019-12-07 16:15 | CT ---
EXAMINATION TYPE: CT brain wo con DATE OF EXAM: 12/07/2019 COMPARISON: 11/28/2019 INDICATION: AMS DLP: 1172.4 mGycm, Automated exposure control for dose reduction was used. CONTRAST: None CT of the brain is performed utilizing 3 mm thick sections through the posterior fossa and 3 mm thick sections through the remaining calvarium. Study is performed within 24 hours of arrival to the hosp ital. No abnormal hyperdensity is present to suggest an acute intracranial hemorrhage. No mass lesion is evident. No acute infarcts are evident. Stimulator leads enter from the frontal region extending towards the b ilateral thalami. This causes some limitation. Mild periventricular white matter hypodensity is prese nt, likely on the basis of chronic white matter changes. Ventricles and sulci are appropriate for the patient age. Paranasal sinuses and mastoid air cells within the [id number] are clear. IMPRESSIONS: 1. Mild chronic appearing white matter changes. 2. Postsurgical changes. 3. No acute intracranial process.
--- NOTE | 2019-12-07 16:15 | XR ---
EXAMINATION TYPE: XR chest 2V DATE OF EXAM: 12/07/2019 COMPARISON: 03/18/2017 INDICATION: Fever TECHNIQUE: Frontal and lateral views of the chest are obtained. FINDINGS: The heart size is normal. The pulmonary vasculature is normal. The lungs are clear. Electronic devices overlie the chest. IMPRESSION: 1. No acute pulmonary process.
[2019-12-07] MEDS ORDERED: POTASSIUM CHLORIDE ER 20 MEQ TAB.ER PO STA ×2 (17:14→18:24)
[2019-12-07 17:35] LABS: Appearance,Urine Clear (Clear); Bacteria,Urine Rare /hpf; Bilirubin,Urine Negative (Negative); Blood,Urine Moderate (Negative); Color,Urine Yellow; Glucose,Urine (UA) Negative (Negative); Ketones,Urine 1+ (Negative); Leukocyte Esterase,Urine Negative (Negative); Mucus,Urine Rare /hpf; Nitrite,Urine Negative (Negative); PH, Urine 5.5 (5.0-8.0); Protein,Urine Trace (Negative); RBC,Urine <1 /hpf (0-5); Specific Gravity,Urine 1.013 (1.001-1.035); Squamous Epithelial Cell,Urine <1 /hpf (0-4); Urobilinogen,Urine <2.0 mg/dL (<2.0); WBC,Urine 1 /hpf (0-5)
[2019-12-07] MEDS ORDERED: POTASSIUM CHLORIDE 10 MEQ/100 ML BAG ONE ×2 (18:30)
[2019-12-07] MEDS ORDERED: GABAPENTIN 400 MG CAP ONE (18:30)
[2019-12-07] MEDS ORDERED: MONTELUKAST 10 MG TAB ONE (18:30)
[2019-12-07] MEDS ORDERED: PARoxetine 20 MG TAB ONE (18:30)
[2019-12-07] MEDS ORDERED: HEPARIN SODIUM,PORCINE 5,000 UNIT/ML 1 ML VIAL ONE ×2 (18:30→21:54)
[2019-12-07] MEDS ORDERED: oxyCODONE-APAP 10-325MG 1 EACH TAB ONE ×2 (18:30→21:53)
[2019-12-07] MEDS ORDERED: POTASSIUM CHLORIDE ER 20 MEQ TAB.ER PO ONE (18:30)
[2019-12-07] MEDS ORDERED: lamoTRIgine 100 MG TAB ONE (18:30)
[2019-12-07] MEDS ORDERED: SODIUM CHLORIDE 0.9% 500 ML 500 ML IV ONE (18:32)
[2019-12-07] MEDS ORDERED: ACETAMINOPHEN TAB 325 MG TAB PO PRN (20:18)
[2019-12-07] MEDS ORDERED: NALOXONE 0.4 MG/ML 1 ML VIAL IV PRN (20:19)
[2019-12-07] MEDS ORDERED: LORazepam 2 MG/ML INJ IV PRN (20:19)
[2019-12-07] MEDS ORDERED: BACLOFEN 10 MG TAB PO PRN (20:44)
[2019-12-07] MEDS ORDERED: ALBUTEROL NEBULIZED 2.5 MG/3 ML INHALATION PRN (20:44)
[2019-12-07] MEDS ORDERED: TOPIRAMATE 100 MG TAB PO PRN (20:44)
[2019-12-07] MEDS ORDERED: FLUTICASONE 50MCG/SPRAY NASAL 16GM EA NOSTRIL PRN (20:44)
[2019-12-07] MEDS ORDERED: DOCUSATE 100 MG CAP PO PRN (20:44)
[2019-12-07] MEDS ORDERED: PARoxetine 20 MG TAB PO SCH (21:00)
[2019-12-07] MEDS ORDERED: MONTELUKAST 10 MG TAB PO SCH (21:00)
[2019-12-08] MEDS ORDERED: ACETAMINOPHEN TAB 325 MG TAB ONE (03:20)
[2019-12-08] MEDS: HEPARIN SODIUM,PORCINE 5,000 UNIT/ML 1 ML VIAL SQ SCH ×2 (05:40→08:29)
[2019-12-08] MEDS: SODIUM CHLORIDE 0.9% 1,000 ML IV SCH ×4 (05:40→05:45)
[2019-12-08] MEDS: lamoTRIgine 100 MG TAB PO SCH ×2 (05:40→08:30)
[2019-12-08] MEDS: POTASSIUM CHLORIDE 10 MEQ in WATER FOR INJECTION 1 100ML.BAG IVPB SCH ×4 (05:40→05:44)
[2019-12-08] MEDS: GABAPENTIN 400 MG CAP PO SCH ×2 (05:41→08:29)
[2019-12-08] MEDS: oxyCODONE-APAP 10-325MG 1 EACH TAB PO SCH ×2 (05:41→08:29)
[2019-12-08] MEDS: PANTOPRAZOLE 40 MG TABLET PO SCH ×2 (05:41→08:29)
[2019-12-08 07:10] LABS: Basophils % (A) 0 %; Eosinophils % (A) 0 %; HCT 36.8 % (34.0-46.0); Lymphocytes # (A) 1.1 k/uL (1.0-4.8); Lymphocytes % (A) 15 %; MCHC 32.7 g/dL (31.0-37.0); MCV 97.8 fL (80.0-100.0); Monocytes # (A) 0.5 k/uL (0-1.0); Monocytes % (A) 6 %; Neutrophils # (A) 5.8 k/uL (1.3-7.7); Neutrophils % (A) 77 %; Platelet Count 141 k/uL (150-450); RBC 3.76 m/uL (3.80-5.40); RDW 13.3 % (11.5-15.5); WBC 7.5 k/uL (3.8-10.6)
[2019-12-08 07:44] LABS: Albumin 3.3 g/dL (3.5-5.0); Calcium 8.7 mg/dL (8.4-10.2); Potassium 3.8 mmol/L (3.5-5.1); Total Bilirubin 0.7 mg/dL (0.2-1.3)
[2019-12-08] MEDS ORDERED: MAGNESIUM OXIDE 400 MG TAB PO SCH (09:00)
[2019-12-08] MEDS ORDERED: LORATADINE 10 MG TAB PO SCH (09:00)
[2019-12-08] MEDS ORDERED: SODIUM CHLORIDE 0.45% 1,000 ML IV SCH (12:15)
--- NOTE | 2019-12-08 14:32 | P.HPIM ---
History of Present Illness 52-year-old female is admitted for altered mental status and high-grade fever. Patient is found to be have dehydration patient has had a high temperature of 103. Patient has been in heat for long time and patient the a conditioning is not turned on and patient is a in a very hot environment at home when EMS. When that to pick him up be cut up. Son believe patient may have some altered mental status because of which a called EMS brought to ER. Patient underwent excess workup workup is negative for sepsis patient doesn't have any leukocytosis denied any dysuria E urinalysis is not consistent with UTI patient doesn't have any pneumonia on the chest x-ray patient was admitted given IV fluids monitored overnight couple hours after that had arrival to ER patient doesn't have any more fever episodes patient is feeling much better patient is hydrated. Patient was on admission her creatinine is 1.6. Came down to 1.2 which is her baseline. Although patient has a non-anion gap metabolic acidosis secondary to hyperchloremia from IV fluids. Patient is alert and oriented 3. Patient is on multiple medications that can cause confusion including Flexeril, gabapentin, antiseizure medications, Benadryl. Since patient is on loratadine patient may not need Benadryl that will be discontinued Review of Systems REVIEW OF SYSTEMS: CONSTITUTIONAL: No fever, no malaise, no fatigue. HEENT: No recent visual problems or hearing problems. Denied any sore throat. CARDIOVASCULAR: No chest pain, orthopnea, PND, no palpitations, no syncope. PULMONARY: No shortness of breath, no cough, no hemoptysis. GASTROINTESTINAL: No diarrhea, no nausea, no vomiting, no abdominal pain. NEUROLOGICAL: No headaches, no weakness, no numbness. HEMATOLOGICAL: Denies any bleeding or petechiae. GENITOURINARY: Denies any burning micturition, frequency, or urgency. MUSCULOSKELETAL/RHEUMATOLOGICAL: Denies any joint pain, swelling, or any muscle pain. ENDOCRINE: Denies any polyuria or polydipsia. The rest of the 14-point review of systems is negative. Past Medical History Past Medical History: Asthma, COPD, GERD/Reflux, Hyperlipidemia, Hypertension, Liver Disease, Neurologic Disorder, Osteoarthritis (OA), Osteoarthritis (OA), Pneumonia, Renal Disease, Seizure Disorder, Sleep Apnea/CPAP/BIPAP Additional Past Medical History / Comment(s): Hx hepatitis c (treated and resolved), questionable MS, bilateral carpal tunnel, Parkinsons Disease, (patient states underwent Deep Brain Stimulation (chip implanted into brain to promote stimulation and treat Parkinson's) in January 2018. States has generators that she will be shutting off for this procedure. Claustrophobic Last seizure 3 yrs ago. Hx ulcers, anemia.Currently not using CPAP, but will be fitted for a mask prior to this procedure. Chronic kidney disease. Hx Pneumonia yrs ago. History of Any Multi-Drug Resistant Organisms: None Reported Past Surgical History: Bariatric Surgery, Section, Cholecystectomy, Joint Replacement, Orthopedic Surgery, Tonsillectomy Additional Past Surgical History / Comment(s): Kidney and liver biopsy, Section X4, right knee replacement X2, 7 ARTHROSCOPIC KNEE SURGERIES - 6 ON THE RIGHT AND 1 ON THE LEFT, left ankle surgery. sleeve gastrectomy 05-21-18 Past Anesthesia/Blood Transfusion Reactions: Motion Sickness Additional Past Anesthesia/Blood Transfusion Reaction / Comment(s): Claustrophobic. Past Psychological History: Anxiety Additional Psychological History / Comment(s): Claustrophobia. Smoking Status: Former smoker Past Alcohol Use History: None Reported Additional Past Alcohol Use History / Comment(s): Started smoking at age 15, smoked 2-3 cig per day, quit 1996. Past Drug Use History: None Reported - Past Family History Brother(s) Family Medical History: Pulmonary Embolus Sister(s) Family Medical History: Cancer Additional Family Medical History / Comment(s): Breast cancer. Father Family Medical History: Hypertension, Osteoarthritis (OA) Mother Family Medical History: Cancer, Hypertension Additional Family Medical History / Comment(s): Breast Cancer. Medications and Allergies Home Medications Medication Instructions Recorded Confirmed Type lamoTRIgine [LaMICtal] 100 mg PO BID 06/02/14 12/07/19 History Prochlorperazine [Compazine] 5 mg PO BID 03/13/17 12/07/19 History Topiramate [Topamax] 100 mg PO BID PRN 03/13/17 12/07/19 History Magnesium Oxide [Mag-Ox] 400 mg PO DAILY 12/24/17 12/07/19 History PARoxetine HCL 40 mg PO HS 01/14/18 12/07/19 History Gabapentin [Neurontin] 400 mg PO TID 05/21/18 12/07/19 History Albuterol Sulfate [Ventolin HFA] 2 puff INHALATION RT-QID PRN 12/07/19 12/07/19 History Baclofen [Lioresal] 10 mg PO BID PRN 12/07/19 12/07/19 History Beclomethasone Dip 80 Mcg/Puff 1 puff INHALATION RT-BID 12/07/19 12/07/19 History [Qvar 80 mcg] Docusate [Colace] 100 mg PO BID PRN 12/07/19 12/07/19 History Ergocalciferol (Vitamin D2) 50,000 unit PO Q14D 12/07/19 12/07/19 History [Drisdol] Fluticasone Nasal [place] [Flonase 2 spr EA NOSTRIL DAILY PRN 12/07/19 12/07/19 History Nasal [place]] Loratadine 10 mg PO DAILY 12/07/19 12/07/19 History Meloxicam [Mobic] 7.5 mg PO HS 12/07/19 12/07/19 History Montelukast Sodium [Singulair] 10 mg PO HS 12/07/19 12/07/19 History Omeprazole 20 mg PO BID 12/07/19 12/07/19 History Umeclidinium [place] [Incruse 1 puff INHALATION RT-DAILY 12/07/19 12/07/19 History Ellipta] diphenhydrAMINE [Benadryl] 25 mg PO DAILY PRN 12/07/19 12/07/19 History levETIRAcetam [Keppra] 750 mg PO BID 12/07/19 12/07/19 History oxyCODONE-APAP 10-325MG [Percocet 1 tab PO TID 12/07/19 12/07/19 History 10-325 mg] predniSONE See Taper PO DAILY 12/07/19 12/07/19 History rOPINIRole HCL 3 mg PO TID 12/07/19 12/07/19 History Allergies Allergy/AdvReac Type Severity Reaction Status Date / Time metoclopramide HCl Allergy Severe Anaphylaxis Verified 12/07/19 17:21 [From Reglan] adhesive Allergy Rash/Hives Verified 12/07/19 17:21 (paper tape ok) azithromycin [From Zithromax] AdvReac Itching Verified 12/07/19 17:21 sucralfate [From Carafate] AdvReac Nausea & Verified 12/07/19 17:21 Vomiting Physical Exam Vitals: Vital Signs Temp Pulse Pulse Resp BP BP Pulse Ox 12/08/19 07:56 98.1 F 78 16 102/68 97 12/08/19 01:55 98.3 F 85 18 117/72 97 12/07/19 20:20 90 16 12/07/19 19:54 99.0 F 16 115/70 97 12/07/19 19:42 99.1 F 90 18 134/84 96 12/07/19 19:41 99.1 F 90 18 134/84 96 12/07/19 19:00 99.1 F 18 12/07/19 16:29 101.3 F H 18 12/07/19 14:36 18 12/07/19 14:29 103.1 F H 111 H 18 107/84 96 Intake and Output 12/07/19 12/08/19 12/08/19 22:59 06:59 14:59 Other: Voiding Method Toilet Toilet # Voids 3 4 Weight 79.379 kg PHYSICAL EXAMINATION: GENERAL: The patient is alert and oriented x3, not in any acute distress. Well developed, well nourished. HEENT: Pupils are round and equally reacting to light. EOMI. No scleral icterus. No conjunctival pallor. Normocephalic, atraumatic. No pharyngeal erythema. No thyromegaly. CARDIOVASCULAR: S1 and S2 present. No murmurs, rubs, or gallops. PULMONARY: Chest is clear to auscultation, no wheezing or crackles. ABDOMEN: Soft, nontender, nondistended, normoactive bowel sounds. No palpable organomegaly. MUSCULOSKELETAL: No joint swelling or deformity. EXTREMITIES: No cyanosis, clubbing, or pedal edema. NEUROLOGICAL: Gross neurological examination did not reveal any focal deficits. SKIN: No rashes. Results CBC & Chem 7: 12/08/19 06:48 12/08/19 06:48 Labs: Abnormal Lab Results - Last 24 Hours (Table) 12/07/19 12/07/19 12/07/19 Range/Units 15:37 15:45 Unknown RBC (3.80-5.40) m/uL Plt Count (150-450) k/uL Lymphocytes # 0.8 L (1.0-4.8) k/uL Potassium 3.0 L (3.5-5.1) mmol/L Chloride 113 H (98-107) mmol/L Carbon Dioxide 11 L (22-30) mmol/L BUN 25 H (7-17) mg/dL Creatinine 1.66 H (0.52-1.04) mg/dL Glucose 123 H (74-99) mg/dL AST 67 H (14-36) U/L Total Protein (6.3-8.2) g/dL Albumin (3.5-5.0) g/dL Urine Protein Trace H (Negative) Urine Ketones 1+ H (Negative) Urine Blood Moderate H (Negative) Urine Bacteria Rare H (None) /hpf Urine Mucus Rare H (None) /hpf 12/08/19 12/08/19 Range/Units 06:48 06:48 RBC 3.76 L (3.80-5.40) m/uL Plt Count 141 L (150-450) k/uL Lymphocytes # (1.0-4.8) k/uL Potassium (3.5-5.1) mmol/L Chloride 117 H (98-107) mmol/L Carbon Dioxide 14 L (22-30) mmol/L BUN 19 H (7-17) mg/dL Creatinine 1.24 H (0.52-1.04) mg/dL Glucose 104 H (74-99) mg/dL AST 64 H (14-36) U/L Total Protein 6.0 L (6.3-8.2) g/dL Albumin 3.3 L (3.5-5.0) g/dL Urine Protein (Negative) Urine Ketones (Negative) Urine Blood (Negative) Urine Bacteria (None) /hpf Urine Mucus (None) /hpf Thrombosis Risk Factor Assmnt - Choose All That Apply Any of the Below Risk Factors Present?: Yes Each Factor Represents 1 point: Age 41-60 years Thrombosis Risk Factor Assessment Total Risk Factor Score: 1 Thrombosis Risk Factor Assessment Level: Low Risk Assessment and Plan Plan: -Fever no evidence of sepsis fever is secondary to heatstroke, patient was resus citated overnight with IV fluids feeling better will be discharged today. No evidence of sepsis - altered mental status multifactorial,toxic and metabolic encephalopathy, from heatstroke, multiple medications, dehydration. Patient is at her baseline will be discharged today -Seizure disorder patient is seizure-free for about 4 years -COPD without any acute exacerbation patient presently doesn't smoke -Hyperlipidemia -Hypertension -Sleep apnea. Patient is clinically doing well will be discharged today in stable medical condition to home to follow with PCP as an outpatient
--- NOTE | 2019-12-08 14:32 | P.DS ---
Providers Date of admission: 12/07/19 18:30 Attending physician: Padma Augustin Primary care physician: Tam[facility] Course: As mentioned in HPI Patient Condition at Discharge: Stable Plan - Discharge Summary Discharge Rx Participant: No New Discharge Prescriptions: Continue lamoTRIgine [LaMICtal] 100 mg PO BID Topiramate [Topamax] 100 mg PO BID PRN PRN Reason: Headache Prochlorperazine [Compazine] 5 mg PO BID Magnesium Oxide [Mag-Ox] 400 mg PO DAILY PARoxetine HCL 40 mg PO HS Gabapentin [Neurontin] 400 mg PO TID oxyCODONE-APAP 10-325MG [Percocet 10-325 mg] 1 tab PO TID Docusate [Colace] 100 mg PO BID PRN PRN Reason: Constipation Umeclidinium [place] [Incruse Ellipta] 1 puff INHALATION RT-DAILY Fluticasone Nasal [place] [Flonase Nasal [place]] 2 spr EA NOSTRIL DAILY PRN PRN Reason: Allergy Symptoms rOPINIRole HCL 3 mg PO TID levETIRAcetam [Keppra] 750 mg PO BID Meloxicam [Mobic] 7.5 mg PO HS Albuterol Sulfate [Ventolin HFA] 2 puff INHALATION RT-QID PRN PRN Reason: Shortness Of Breath Omeprazole 20 mg PO BID Loratadine 10 mg PO DAILY Baclofen [Lioresal] 10 mg PO BID PRN PRN Reason: Muscle Pain Montelukast Sodium [Singulair] 10 mg PO HS predniSONE See Taper PO DAILY Ergocalciferol (Vitamin D2) [Drisdol] 50,000 unit PO Q14D Beclomethasone Dip 80 Mcg/Puff [Qvar 80 mcg] 1 puff INHALATION RT-BID Discontinued diphenhydrAMINE [Benadryl] 25 mg PO DAILY PRN PRN Reason: Allergy Symptoms Discharge Medication List lamoTRIgine [LaMICtal] 100 mg PO BID 06/02/14 [History] Prochlorperazine [Compazine] 5 mg PO BID 03/13/17 [History] Topiramate [Topamax] 100 mg PO BID PRN 03/13/17 [History] Magnesium Oxide [Mag-Ox] 400 mg PO DAILY 12/24/17 [History] PARoxetine HCL 40 mg PO HS 01/14/18 [History] Gabapentin [Neurontin] 400 mg PO TID 05/21/18 [History] Albuterol Sulfate [Ventolin HFA] 2 puff INHALATION RT-QID PRN 12/07/19 [History] Baclofen [Lioresal] 10 mg PO BID PRN 12/07/19 [History] Beclomethasone Dip 80 Mcg/Puff [Qvar 80 mcg] 1 puff INHALATION RT-BID 12/07/19 [History] Docusate [Colace] 100 mg PO BID PRN 12/07/19 [History] Ergocalciferol (Vitamin D2) [Drisdol] 50,000 unit PO Q14D 12/07/19 [History] Fluticasone Nasal [place] [Flonase Nasal [place]] 2 spr EA NOSTRIL DAILY PRN 12/07/19 [History] Loratadine 10 mg PO DAILY 12/07/19 [History] Meloxicam [Mobic] 7.5 mg PO HS 12/07/19 [History] Montelukast Sodium [Singulair] 10 mg PO HS 12/07/19 [History] Omeprazole 20 mg PO BID 12/07/19 [History] Umeclidinium [place] [Incruse Ellipta] 1 puff INHALATION RT-DAILY 12/07/19 [History] levETIRAcetam [Keppra] 750 mg PO BID 12/07/19 [History] oxyCODONE-APAP 10-325MG [Percocet 10-325 mg] 1 tab PO TID 12/07/19 [History] predniSONE See Taper PO DAILY 12/07/19 [History] rOPINIRole HCL 3 mg PO TID 12/07/19 [History] Follow up Appointment(s)/Referral(s): Caroline Munoz MD [Primary Care Provider] - 3 Days Patient Instructions/Handouts: Heatstroke (DC)
[2019-12-08] MEDS ORDERED: IPRATROPIUM 0.5 MG/2.5 ML NEBU INHALATION SCH (16:00)
[2019-12-08] MEDS ORDERED: FLUTICASONE 110 MCG INHALER INHALATION SCH (20:00)
[2019-12-09] MEDS ORDERED: predniSONE 10 MG TAB PO SCH (09:00)
[2019-12-09 09:31] VITALS: BP 102/68; PULSE 78; RESP 16; TEMP 98.1
[2019-12-14] MEDS ORDERED: ERGOCALCIFEROL 50,000 UNIT CAP PO SCH (09:00)
== END 2019-12-08 16:07 | disposition home or self-care (01) ==
LOC: EC 14:21 → 4SSUR 18:30
PROVIDERS: ADMIT Internal Medicine; ATTEND Internal Medicine
DX: T67.01XA Heatstroke and sunstroke, initial encounter (principal); R41.3 Other amnesia; G93.41 Metabolic encephalopathy; E87.6 Hypokalemia; E86.0 Dehydration; G40.909 Epilepsy, unspecified, not intractable, without status epilepticus; J44.9 Chronic obstructive pulmonary disease, unspecified; E78.5 Hyperlipidemia, unspecified; I12.9 Hypertensive chronic kidney disease with stage 1 through stage 4 chronic kidney disease, or unspecified chronic kidney disease; G47.30 Sleep apnea, unspecified; E87.8 Other disorders of electrolyte and fluid balance, not elsewhere classified; E87.2 Acidosis; N18.9 Chronic kidney disease, unspecified; N17.9 Acute kidney failure, unspecified; K21.9 Gastro-esophageal reflux disease without esophagitis; G20 Parkinson's disease; M19.90 Unspecified osteoarthritis, unspecified site; G56.03 Carpal tunnel syndrome, bilateral upper limbs; F40.240 Claustrophobia; F41.9 Anxiety disorder, unspecified; Z03.818 Encounter for observation for suspected exposure to other biological agents ruled out; Z79.899 Other long term (current) drug therapy; Z79.51 Long term (current) use of inhaled steroids; Z79.1 Long term (current) use of non-steroidal anti-inflammatories (NSAID); Z79.891 Long term (current) use of opiate analgesic; Z88.8 Allergy status to other drugs, medicaments and biological substances; Z91.09 Other allergy status, other than to drugs and biological substances; Z88.1 Allergy status to other antibiotic agents; Z87.01 Personal history of pneumonia (recurrent); Z86.19 Personal history of other infectious and parasitic diseases; Z98.890 Other specified postprocedural states; Z96.82 Presence of neurostimulator; Z87.898 Personal history of other specified conditions; Z86.2 Personal history of diseases of the blood and blood-forming organs and certain disorders involving the immune mechanism; Z98.84 Bariatric surgery status; Z90.49 Acquired absence of other specified parts of digestive tract; Z96.651 Presence of right artificial knee joint; Z90.89 Acquired absence of other organs; Z87.891 Personal history of nicotine dependence; Z82.49 Family history of ischemic heart disease and other diseases of the circulatory system; Z80.3 Family history of malignant neoplasm of breast; Z82.61 Family history of arthritis; X58.XXXA Exposure to other specified factors, initial encounter; Y92.009 Unspecified place in unspecified non-institutional (private) residence as the place of occurrence of the external cause
CPT/HCPCS: 96372; 99285; 36415; 83605; 80053 ×2; 83735 ×2; 85025 ×2; 85610; 85730; 81001; 87040; 83520; 71046; 70450; G0378 ×2; G0480; U0003; J1644; 80329

== ENCOUNTER → 2020-01-06 | Outpatient (CLI) | payer OTHER ==
[2020-01-06 09:40] LABS: HCT 40.3 % (34.0-46.0); HGB 12.5 gm/dL (11.4-16.0); Hypochromasia Slight; MCH 31.2 pg (25.0-35.0); MCHC 30.9 g/dL (31.0-37.0); Mean Platelet Volume 8.5; Platelet Count 117 k/uL (150-450); RBC 3.99 m/uL (3.80-5.40); RDW 13.1 % (11.5-15.5); WBC 3.2 k/uL (3.8-10.6)
[2020-01-06 15:09] LABS: ALT 10 U/L (8-44); AST 18 U/L (13-35); Alkaline Phosphatase 102 U/L (41-126); Bilirubin, Conjugated <0.20 mg/dL (0.20-0.40); Globulin 2.1 g/dL (1.6-3.3); Total Bilirubin 0.3 mg/dL (0.2-1.2); Total Protein 6.3 g/dL (6.2-8.2)
== END | disposition home or self-care (01) ==
LOC: LABWHC1 09:02
PROVIDERS: ATTEND Physician Assistant
DX: B18.2 Chronic viral hepatitis C (principal)
CPT/HCPCS: 36415; 80076; 85027; 87522

== ENCOUNTER 2020-02-27 09:01 | Emergency (ER) | payer OTHER ==
[2020-02-27 09:08] VITALS: RESP 18; TEMP 99.4
[2020-02-27] MEDS ORDERED: SODIUM CHLORIDE 0.9% 2,000 ML IV ONE (09:17)
[2020-02-27] MEDS ORDERED: MORPHINE SULFATE 4 MG/ML SYRINGE IVP STA (09:17)
[2020-02-27] MEDS ORDERED: ONDANSETRON 4 MG/2 ML VIAL IVP STA (09:17)
[2020-02-27] MEDS ORDERED: PIPERACILLIN-TAZOBACTAM 3.375 GM in SODIUM CHLORIDE 0.9% 100 ML IVPB STA (09:22)
--- NOTE | 2020-02-27 09:27 | ED ---
General Adult HPI - General Source: patient, RN notes reviewed Mode of arrival: ambulatory Limitations: no limitations <Luciano Flynn - Last Filed: 02/27/20 09:38> <Brad Marcus - Last Filed: 02/27/20 10:32> - General Chief complaint: Recheck/Abnormal Lab/Rx Stated complaint: post op infection on back Time Seen by Provider: 02/27/20 09:11 - History of Present Illness Initial comments: This a 54-year-old female presents emergency Department chief complaint of back infection. Patient states she's been having increasing back pain since her procedure one week ago. Patient states that she had some nerves ablated. Patient states she had an incision which is healing but was increasing in redness and started draining last night. Patient states that she's felt that she's had a fever, chills. Patient states that she called her surgeon who recommended come down to his office. Patient states she didn't transportation and presented to the emergency department. Patient denies any bowel bladder incontinence or retention. Patient states that the redness is continues to spread. (Luciano Flynn) - Related Data Home Medications Medication Instructions Recorded Confirmed lamoTRIgine [LaMICtal] 100 mg PO BID 06/02/14 12/07/19 Prochlorperazine [Compazine] 5 mg PO BID 03/13/17 12/07/19 Topiramate [Topamax] 100 mg PO BID PRN 03/13/17 12/07/19 Magnesium Oxide [Mag-Ox] 400 mg PO DAILY 12/24/17 12/07/19 PARoxetine HCL 40 mg PO HS 01/14/18 12/07/19 Gabapentin [Neurontin] 400 mg PO TID 05/21/18 12/07/19 Albuterol Sulfate [Ventolin HFA] 2 puff INHALATION RT-QID PRN 12/07/19 12/07/19 Baclofen [Lioresal] 10 mg PO BID PRN 12/07/19 12/07/19 Beclomethasone Dip 80 Mcg/Puff 1 puff INHALATION RT-BID 12/07/19 12/07/19 [Qvar 80 mcg] Docusate [Colace] 100 mg PO BID PRN 12/07/19 12/07/19 Ergocalciferol (Vitamin D2) 50,000 unit PO Q14D 12/07/19 12/07/19 [Drisdol] Fluticasone Nasal [place] [Flonase 2 spr EA NOSTRIL DAILY PRN 12/07/19 12/07/19 Nasal [place]] Loratadine 10 mg PO DAILY 12/07/19 12/07/19 Meloxicam [Mobic] 7.5 mg PO HS 12/07/19 12/07/19 Montelukast Sodium [Singulair] 10 mg PO HS 12/07/19 12/07/19 Omeprazole 20 mg PO BID 12/07/19 12/07/19 Umeclidinium [place] [Incruse 1 puff INHALATION RT-DAILY 12/07/19 12/07/19 Ellipta] levETIRAcetam [Keppra] 750 mg PO BID 12/07/19 12/07/19 oxyCODONE-APAP 10-325MG [Percocet 1 tab PO TID 12/07/19 12/07/19 10-325 mg] predniSONE See Taper PO DAILY 12/07/19 12/07/19 rOPINIRole HCL 3 mg PO TID 12/07/19 12/07/19 Allergies Allergy/AdvReac Type Severity Reaction Status Date / Time metoclopramide HCl Allergy Severe Anaphylaxis Verified 02/27/20 09:08 [From Reglan] adhesive Allergy Rash/Hives Verified 02/27/20 09:08 (paper tape ok) azithromycin [From Zithromax] AdvReac Itching Verified 02/27/20 09:08 sucralfate [From Carafate] AdvReac Nausea & Verified 02/27/20 09:08 Vomiting Review of Systems ROS Other: All systems not noted in ROS Statement are negative. <Luciano Flynn - Last Filed: 02/27/20 09:38> ROS Other: All systems not noted in ROS Statement are negative. <Brad Marcus - Last Filed: 02/27/20 10:32> ROS Statement: Those systems with pertinent positive or pertinent negative responses have been documented in the HPI. Past Medical History Past Medical History: Asthma, COPD, GERD/Reflux, Hyperlipidemia, Hypertension, Liver Disease, Neurologic Disorder, Osteoarthritis (OA), Osteoarthritis (OA), Pneumonia, Renal Disease, Seizure Disorder, Sleep Apnea/CPAP/BIPAP Additional Past Medical History / Comment(s): Hx hepatitis c (treated and resolved), questionable MS, bilateral carpal tunnel, Parkinsons Disease, (patient states underwent Deep Brain Stimulation (chip implanted into brain to promote stimulation and treat Parkinson's) in January 2018. States has genera tors that she will be shutting off for this procedure. Claustrophobic Last seizure 3 yrs ago. Hx ulcers, anemia.Currently not using CPAP, but will be fitted for a mask prior to this procedure. Chronic kidney disease. Hx Pneumonia yrs ago. History of Any Multi-Drug Resistant Organisms: None Reported Past Surgical History: Back Surgery, Bariatric Surgery, Section, Cholecystectomy, Joint Replacement, Orthopedic Surgery, Tonsillectomy Additional Past Surgical History / Comment(s): Kidney and liver biopsy, Section X4, right knee replacement X2, 7 ARTHROSCOPIC KNEE SURGERIES - 6 ON THE RIGHT AND 1 ON THE LEFT, left ankle surgery. sleeve gastrectomy 05-21-18, Past Anesthesia/Blood Transfusion Reactions: Motion Sickness Additional Past Anesthesia/Blood Transfusion Reaction / Comment(s): Claustrophobic. Past Psychological History: Anxiety Smoking Status: Former smoker Past Alcohol Use History: None Reported Past Drug Use History: None Reported - Past Family History Brother(s) Family Medical History: Pulmonary Embolus Sister(s) Family Medical History: Cancer Additional Family Medical History / Comment(s): Breast cancer. Father Family Medical History: Hypertension, Osteoarthritis (OA) Mother Family Medical History: Cancer, Hypertension Additional Family Medical History / Comment(s): Breast Cancer. <Luciano Flynn M - Last Filed: 02/27/20 09:38> General Exam Limitations: no limitations General appearance: alert, in no apparent distress Head exam: Present: atraumatic, normocephalic, normal inspection Neck exam: Present: normal inspection, full ROM. Absent: tenderness, meningismus, lymphadenopathy Respiratory exam: Present: normal lung sounds bilaterally. Absent: respiratory distress, wheezes, rales, rhonchi, stridor Cardiovascular Exam: Present: normal rhythm, tachycardia, normal heart sounds. Absent: systolic murmur, diastolic murmur, rubs, gallop, clicks GI/Abdominal exam: Present: soft, normal bowel sounds. Absent: distended, tenderness, guarding, rebound, rigid Back exam: Absent: normal inspection (Lumbar region there is a healing incision with wound dehiscence on the superior aspect there is diffuse erythema approximately 6x8 cm, moderate tenderness with palpation) Skin exam: Present: warm, dry <Luciano Flynn - Last Filed: 02/27/20 09:38> Course Vital Signs 02/27/20 02/27/20 09:04 09:58 Temperature 99.4 F 99.4 F Pulse Rate 117 H 89 Respiratory 18 18 Rate Blood Pressure 104/72 100/75 O2 Sat by Pulse 98 97 Oximetry Medical Decision Making <Luciano Flynn - Last Filed: 02/27/20 09:38> - Lab Data Result diagrams: 02/27/20 09:26 02/27/20 09:26 <Brad Marcus - Last Filed: 02/27/20 10:32> - Medical Decision Making Case discussed with patient's neurosurgeon recommended patient be sent to [facility]. I discussed the case with ER physician who accepts transfer. Patient had labs ordered, given a dose of Zosyn. (Luciano Flynn) - Lab Data Lab Results 02/27/20 02/27/20 02/27/20 Range/Units 09:26 09:26 09:26 WBC 6.9 (3.8-10.6) k/uL RBC 3.86 (3.80-5.40) m/uL Hgb 11.8 (11.4-16.0) gm/dL Hct 37.1 (34.0-46.0) % MCV 96.1 D (80.0-100.0) fL MCH 30.6 (25.0-35.0) pg MCHC 31.9 (31.0-37.0) g/dL RDW 12.5 (11.5-15.5) % Plt Count 313 D (150-450) k/uL Neutrophils % 85 % Lymphocytes % 6 % Monocytes % 7 % Eosinophils % 1 % Basophils % 0 % Neutrophils # 5.8 (1.3-7.7) k/uL Lymphocytes # 0.4 L (1.0-4.8) k/uL Monocytes # 0.5 (0-1.0) k/uL Eosinophils # 0.0 (0-0.7) k/uL Basophils # 0.0 (0-0.2) k/uL Sodium 138 (137-145) mmol/L Potassium 4.1 (3.5-5.1) mmol/L Chloride 105 (98-107) mmol/L Carbon Dioxide 18 L (22-30) mmol/L Anion Gap 15 mmol/L BUN 17 (7-17) mg/dL Creatinine 1.11 H (0.52-1.04) mg/dL Est GFR (CKD-EPI)AfAm 65 (>60 ml/min/1.73 sqM) Est GFR (CKD-EPI)NonAf 56 (>60 ml/min/1.73 sqM) Glucose 128 H (74-99) mg/dL Plasma Lactic Acid Ham 1.3 (0.7-2.0) mmol/L Calcium 9.8 (8.4-10.2) mg/dL Total Bilirubin 0.6 (0.2-1.3) mg/dL AST 22 (14-36) U/L ALT 13 (4-34) U/L Alkaline Phosphatase 140 H (38-126) U/L C-Reactive Protein 242.6 H (<10.0) mg/L Total Protein 7.0 (6.3-8.2) g/dL Albumin 3.8 (3.5-5.0) g/dL Disposition Time of Disposition: 09:39 - Out of Hospital Transfer - Req. Specs Out of Hospital Transfer - Requested Specifics: Other Emergency Center ([facility]) <Luciano Flynn - Last Filed: 02/27/20 09:38> <Brad Marcus - Last Filed: 02/27/20 10:32> Clinical Impression: Postoperative infection, Cellulitis of back Disposition: OTHER INSTITUTION NOT DEFINED Condition: Stable Referrals: Caroline Munoz MD [Primary Care Provider] - 1-2 days
[2020-02-27 09:54] LABS: Basophils % (A) 0 %; Eosinophils % (A) 1 %; HCT 37.1 % (34.0-46.0); HGB 11.8 gm/dL (11.4-16.0); Lymphocytes # (A) 0.4 k/uL (1.0-4.8); Lymphocytes % (A) 6 %; MCH 30.6 pg (25.0-35.0); MCHC 31.9 g/dL (31.0-37.0); Mean Platelet Volume 7.2; Monocytes # (A) 0.5 k/uL (0-1.0); Monocytes % (A) 7 %; Neutrophils # (A) 5.8 k/uL (1.3-7.7); Neutrophils % (A) 85 %; RBC 3.86 m/uL (3.80-5.40); RDW 12.5 % (11.5-15.5); WBC 6.9 k/uL (3.8-10.6)
[2020-02-27 10:07] LABS: Albumin 3.8 g/dL (3.5-5.0); Calcium 9.8 mg/dL (8.4-10.2); Potassium 4.1 mmol/L (3.5-5.1); Total Bilirubin 0.6 mg/dL (0.2-1.3)
[2020-02-27 10:21] LABS: C Reactive Protein 242.6 mg/L (<10.0)
[2020-02-27 10:24] LABS: MCV 96.1 fL (80.0-100.0); Platelet Count 313 k/uL (150-450)
[2020-02-27] MEDS ORDERED: HYDROmorphone 1 MG/ML 1 ML SYRINGE IVP STA (10:52)
[2020-02-27 10:56] VITALS: BP 123/66; PULSE 110
== END 2020-02-27 11:01 | disposition other institution (70) ==
LOC: EC 09:01
DX: T81.40XA Infection following a procedure, unspecified, initial encounter (principal); L03.312 Cellulitis of back [any part except buttock and flank]; R00.0 Tachycardia, unspecified; F41.9 Anxiety disorder, unspecified; J44.9 Chronic obstructive pulmonary disease, unspecified; K21.9 Gastro-esophageal reflux disease without esophagitis; E78.5 Hyperlipidemia, unspecified; G20 Parkinson's disease; N18.9 Chronic kidney disease, unspecified; I12.9 Hypertensive chronic kidney disease with stage 1 through stage 4 chronic kidney disease, or unspecified chronic kidney disease; M19.90 Unspecified osteoarthritis, unspecified site; G40.909 Epilepsy, unspecified, not intractable, without status epilepticus; Z79.899 Other long term (current) drug therapy; Z87.891 Personal history of nicotine dependence; Z96.651 Presence of right artificial knee joint; Z88.1 Allergy status to other antibiotic agents; Z88.8 Allergy status to other drugs, medicaments and biological substances; Z91.048 Other nonmedicinal substance allergy status; G47.33 Obstructive sleep apnea (adult) (pediatric); Z99.89 Dependence on other enabling machines and devices
CPT/HCPCS: 36415; 80053; 83605; 85025; 86140; 87040; 99285; 96365; 96375 ×3; J2543; J2270; J2405; J1170

== ENCOUNTER 2020-03-09 17:09 | Observation (INO) | payer OTHER ==
[2020-03-09] MEDS ORDERED: SODIUM CHLORIDE 0.9% 1,000 ML IV ONE (17:31)
[2020-03-09] MEDS ORDERED: SODIUM CHLORIDE 0.9% 1,000 ML IV STA (17:31)
--- NOTE | 2020-03-09 17:31 | ED ---
Recheck HPI - General Chief Complaint: Recheck/Abnormal Lab/Rx Stated Complaint: Pulled out her PIC line Time Seen by Provider: 03/09/20 17:25 Source: patient, RN notes reviewed, old records reviewed Mode of arrival: wheelchair Limitations: no limitations - History of Present Illness Initial Comments: This is a 54-year-old female DF for evaluation patient presents today for evaluation regards to PICC line, patient has blood or PICC line this is a multiple time patient's bladder PICC line she denies having any knowledge of how she may or may have done that. MD Complaint: other (Patient removed PICC line) -: unknown Returns Today for: Called Because of Abnormal Lab/Test Symptoms Since Prior Visit: no new symptoms Context: planned re-check Associated Symptoms: none - Related Data Home Medications Medication Instructions Recorded Confirmed lamoTRIgine [LaMICtal] 100 mg PO BID 06/02/14 12/07/19 Prochlorperazine [Compazine] 5 mg PO BID 03/13/17 12/07/19 Topiramate [Topamax] 100 mg PO BID PRN 03/13/17 12/07/19 Magnesium Oxide [Mag-Ox] 400 mg PO DAILY 12/24/17 12/07/19 PARoxetine HCL 40 mg PO HS 01/14/18 12/07/19 Gabapentin [Neurontin] 400 mg PO TID 05/21/18 12/07/19 Albuterol Sulfate [Ventolin HFA] 2 puff INHALATION RT-QID PRN 12/07/19 12/07/19 Baclofen [Lioresal] 10 mg PO BID PRN 12/07/19 12/07/19 Beclomethasone Dip 80 Mcg/Puff 1 puff INHALATION RT-BID 12/07/19 12/07/19 [Qvar 80 mcg] Docusate [Colace] 100 mg PO BID PRN 12/07/19 12/07/19 Ergocalciferol (Vitamin D2) 50,000 unit PO Q14D 12/07/19 12/07/19 [Drisdol] Fluticasone Nasal [place] [Flonase 2 spr EA NOSTRIL DAILY PRN 12/07/19 12/07/19 Nasal [place]] Loratadine 10 mg PO DAILY 12/07/19 12/07/19 Meloxicam [Mobic] 7.5 mg PO HS 12/07/19 12/07/19 Montelukast Sodium [Singulair] 10 mg PO HS 12/07/19 12/07/19 Omeprazole 20 mg PO BID 12/07/19 12/07/19 Umeclidinium [place] [Incruse 1 puff INHALATION RT-DAILY 12/07/19 12/07/19 Ellipta] levETIRAcetam [Keppra] 750 mg PO BID 12/07/19 12/07/19 oxyCODONE-APAP 10-325MG [Percocet 1 tab PO TID 12/07/19 12/07/19 10-325 mg] predniSONE See Taper PO DAILY 12/07/19 12/07/19 rOPINIRole HCL 3 mg PO TID 12/07/19 12/07/19 Allergies Allergy/AdvReac Type Severity Reaction Status Date / Time metoclopramide HCl Allergy Severe Anaphylaxis Verified 03/09/20 17:24 [From Reglan] adhesive Allergy Rash/Hives Verified 03/09/20 17:24 (paper tape ok) azithromycin [From Zithromax] AdvReac Itching Verified 03/09/20 17:24 sucralfate [From Carafate] AdvReac Nausea & Verified 03/09/20 17:24 Vomiting Review of Systems ROS Statement: Those systems with pertinent positive or pertinent negative responses have been documented in the HPI. ROS Other: All systems not noted in ROS Statement are negative. Past Medical History Past Medical History: Asthma, COPD, GERD/Reflux, Hyperlipidemia, Hypertension, Liver Disease, Neurologic Disorder, Osteoarthritis (OA), Osteoarthritis (OA), Pneumonia, Renal Disease, Seizure Disorder, Sleep Apnea/CPAP/BIPAP Additional Past Medical History / Comment(s): Hx hepatitis c (treated and resolved), questionable MS, bilateral carpal tunnel, Parkinsons Disease, (patient states underwent Deep Brain Stimulation (chip implanted into brain to promote stimulation and treat Parkinson's) in January 2018. States has generators that she will be shutting off for this procedure. Claustrophobic Last seizure 3 yrs ago. Hx ulcers, anemia.Currently not using CPAP, but will be fitted for a mask prior to this procedure. Chronic kidney disease. Hx Pneumonia yrs ago. History of Any Multi-Drug Resistant Organisms: None Reported Past Surgical History: Back Surgery, Bariatric Surgery, Section, Cholecystectomy, Joint Replacement, Orthopedic Surgery, Tonsillectomy Additional Past Surgical History / Comment(s): Kidney and liver biopsy, Section X4, right knee replacement X2, 7 ARTHROSCOPIC KNEE SURGERIES - 6 ON THE RIGHT AND 1 ON THE LEFT, left ankle surgery. sleeve gastrectomy 05-21-18, Past Anesthesia/Blood Transfusion Reactions: Motion Sickness Additional Past Anesthesia/Blood Transfusion Reaction / Comment(s): Claustrophobic. Past Psychological History: Anxiety Smoking Status: Former smoker Past Alcohol Use History: None Reported Past Drug Use History: None Reported - Past Family History Brother(s) Family Medical History: Pulmonary Embolus Sister(s) Family Medical History: Cancer Additional Family Medical History / Comment(s): Breast cancer. Father Family Medical History: Hypertension, Osteoarthritis (OA) Mother Family Medical History: Cancer, Hypertension Additional Family Medical History / Comment(s): Breast Cancer. General Exam - General Exam Comments Initial Comments: Patient removed PICC line Limitations: no limitations General appearance: alert, in no apparent distress Head exam: Present: atraumatic, normocephalic, normal inspection Eye exam: Present: normal appearance, PERRL, EOMI. Absent: scleral icterus, conjunctival injection, periorbital swelling ENT exam: Present: normal exam, mucous membranes moist Neck exam: Present: normal inspection. Absent: tenderness, meningismus, lymphadenopathy Respiratory exam: Present: normal lung sounds bilaterally. Absent: respiratory distress, wheezes, rales, rhonchi, stridor Cardiovascular Exam: Present: regular rate, normal rhythm, normal heart sounds. Absent: systolic murmur, diastolic murmur, rubs, gallop, clicks GI/Abdominal exam: Present: soft, normal bowel sounds. Absent: distended, tenderness, guarding, rebound, rigid Extremities exam: Present: normal inspection, full ROM, normal capillary refill. Absent: tenderness, pedal edema, joint swelling, calf tenderness Back exam: Present: normal inspection Neurological exam: Present: alert, oriented X3, CN II-XII intact Psychiatric exam: Present: normal affect, normal mood Skin exam: Present: warm, dry, intact, normal color. Absent: rash Course Vital Signs 03/09/20 17:22 Temperature 98.2 F Pulse Rate 101 H Respiratory 18 Rate Blood Pressure 100/63 O2 Sat by Pulse 99 Oximetry - Reevaluation(s) Reevaluation #1: 03/09/20 17:38 Medical records reviewed Reevaluation #2: 03/09/20 17:38 Patient continuously was PICC line will admit for PICC line placement Medical Decision Making - Medical Decision Making 54 female DF for evaluation. Patient removed PICC line claims did not know how this happened. Patient will be admitted for PICC line placement and IV antibiotics maintained Disposition Clinical Impression: Acute renal injury, Cellulitis Narrative: removed PICC line and needs replacement Disposition: ADMITTED IP TO THIS HOSP Condition: Fair Is patient prescribed a controlled substance at d/c from ED?: No Referrals: Caroline Munoz MD [Primary Care Provider] - 1-2 days
[2020-03-09 18:14] LABS: Basophils # (A) 0.1 k/uL (0-0.2); Basophils % (A) 1 %; Eosinophils # (A) 0.2 k/uL (0-0.7); Eosinophils % (A) 5 %; HGB 11.6 gm/dL (11.4-16.0); Hypochromasia Slight; Lymphocytes % (A) 23 %; MCH 32.3 pg (25.0-35.0); MCHC 32.2 g/dL (31.0-37.0); MCV 100.1 fL (80.0-100.0); Macrocytosis Slight; Mean Platelet Volume 7.6; Monocytes # (A) 0.3 k/uL (0-1.0); Monocytes % (A) 6 %; Neutrophils # (A) 2.9 k/uL (1.3-7.7); Neutrophils % (A) 64 %; Platelet Count 328 k/uL (150-450); RDW 13.8 % (11.5-15.5); WBC 4.5 k/uL (3.8-10.6)
[2020-03-09 18:22] LABS: INR 1.1 (<1.2); Partial Thromboplastin Time 25.3 sec (22.0-30.0); Prothrombin Time 11.5 sec (9.0-12.0)
[2020-03-09 18:26] LABS: Appearance,Urine Clear (Clear); Bilirubin,Urine Negative (Negative); Blood,Urine Negative (Negative); Color,Urine Yellow; Glucose,Urine (UA) Negative (Negative); Ketones,Urine Trace (Negative); Leukocyte Esterase,Urine Moderate (Negative); Mucus,Urine Rare /hpf; Nitrite,Urine Negative (Negative); Protein,Urine Trace (Negative); RBC,Urine 1 /hpf (0-5); Squamous Epithelial Cell,Urine 1 /hpf (0-4); Urobilinogen,Urine <2.0 mg/dL (<2.0); WBC,Urine 4 /hpf (0-5)
[2020-03-09 18:26] LABS: ALT <6 U/L (4-34); AST 28 U/L (14-36); African American GFR (CKD) 50 (>60 ml/min/1.73 sqM); Albumin 3.9 g/dL (3.5-5.0); Alkaline Phosphatase 122 U/L (38-126); Anion Gap 9 mmol/L; Blood Urea Nitrogen 13 mg/dL (7-17); Calcium 9.6 mg/dL (8.4-10.2); Carbon Dioxide 20 mmol/L (22-30); Chloride 110 mmol/L (98-107); Creatine Kinase 48 U/L (30-135); Glucose 124 mg/dL (74-99); Non-African American GFR(CKD) 43 (>60 ml/min/1.73 sqM); Potassium 4.1 mmol/L (3.5-5.1); Sodium 139 mmol/L (137-145); Total Bilirubin 0.2 mg/dL (0.2-1.3); Total Protein 6.9 g/dL (6.3-8.2)
[2020-03-09] MEDS ORDERED: ALBUTEROL NEBULIZED 2.5 MG/3 ML INHALATION PRN (18:34)
[2020-03-09] MEDS ORDERED: BACLOFEN 10 MG TAB PO PRN (18:34)
[2020-03-09] MEDS ORDERED: MELOXICAM 7.5 MG TAB PO PRN (18:34)
[2020-03-09] MEDS ORDERED: PROCHLORPERAZINE 5 MG TAB PO PRN (18:34)
[2020-03-09] MEDS ORDERED: FLUTICASONE 50MCG/SPRAY NASAL 16GM EA NOSTRIL PRN (18:34)
[2020-03-09] MEDS: FLUTICASONE 110 MCG INHALER INHALATION SCH (19:28)
[2020-03-09] MEDS: IPRATROPIUM 0.5 MG/2.5 ML NEBU INHALATION SCH (19:28)
[2020-03-09] MEDS ORDERED: LORATADINE 10 MG TAB PO SCH (21:00)
[2020-03-09] MEDS ORDERED: MONTELUKAST 10 MG TAB PO SCH (21:00)
[2020-03-09] MEDS ORDERED: PARoxetine 20 MG TAB PO SCH (21:00)
[2020-03-09] MEDS: lamoTRIgine 100 MG TAB PO SCH (21:49)
[2020-03-09] MEDS: GABAPENTIN 400 MG CAP PO SCH (21:49)
[2020-03-09] MEDS: TOPIRAMATE 100 MG TAB PO SCH (21:50)
[2020-03-09] MEDS: oxyCODONE-APAP 10-325MG 1 EACH TAB PO PRN (21:52)
[2020-03-09] MEDS: BACITRACIN ZINC 500 UNIT/GM OINT 28.4 GM TUBE TOPICAL SCH (22:00)
[2020-03-10] MEDS: IPRATROPIUM 0.5 MG/2.5 ML NEBU INHALATION SCH ×3 (07:29→15:47)
[2020-03-10] MEDS: FLUTICASONE 110 MCG INHALER INHALATION SCH (07:30)
[2020-03-10] MEDS ORDERED: PANTOPRAZOLE 40 MG TABLET PO SCH (07:30)
[2020-03-10] MEDS: oxyCODONE-APAP 10-325MG 1 EACH TAB PO PRN (07:40)
[2020-03-10] MEDS: GABAPENTIN 400 MG CAP PO SCH ×2 (08:40→15:43)
[2020-03-10] MEDS: BACITRACIN ZINC 500 UNIT/GM OINT 28.4 GM TUBE TOPICAL SCH (08:41)
[2020-03-10] MEDS: lamoTRIgine 100 MG TAB PO SCH (08:41)
[2020-03-10] MEDS: TOPIRAMATE 100 MG TAB PO SCH (08:43)
[2020-03-10] MEDS ORDERED: MAGNESIUM OXIDE 400 MG TAB PO SCH (09:00)
[2020-03-10] MEDS ORDERED: PARoxetine 10 MG TAB PO SCH (09:00)
[2020-03-10] MEDS ORDERED: atenoloL 25 MG TAB PO SCH (09:00)
[2020-03-10 15:11] VITALS: BP 91/52; RESP 18; TEMP 97.2
[2020-03-10 15:58] VITALS: PULSE 88
[2020-03-10] MEDS ORDERED: oxyCODONE-APAP 10-325MG 1 EACH TAB PO PRN (16:00)
--- NOTE | 2020-03-10 16:28 | P.HPIM ---
History of Present Illness 54-year-old [place] female came in as she pulled her PICC line outpatient patient had a back surgery. After which that got infected because of which patient was started on ceftezole and was discharged home with PICC line and IV antibiotics patient still has about 4 weeks of duration of antibiotics she will still need to take. Denied any fever chills patient back is healing very well patient has sutures still in there. Review of Systems REVIEW OF SYSTEMS: CONSTITUTIONAL: No fever, no malaise, no fatigue. HEENT: No recent visual problems or hearing problems. Denied any sore throat. CARDIOVASCULAR: No chest pain, orthopnea, PND, no palpitations, no syncope. PULMONARY: No shortness of breath, no cough, no hemoptysis. GASTROINTESTINAL: No diarrhea, no nausea, no vomiting, no abdominal pain. NEUROLOGICAL: No headaches, no weakness, no numbness. HEMATOLOGICAL: Denies any bleeding or petechiae. GENITOURINARY: Denies any burning micturition, frequency, or urgency. MUSCULOSKELETAL/RHEUMATOLOGICAL: Denies any joint pain, swelling, or any muscle pain. ENDOCRINE: Denies any polyuria or polydipsia. The rest of the 14-point review of systems is negative. Past Medical History Past Medical History: Asthma, COPD, GERD/Reflux, Hyperlipidemia, Hypertension, Liver Disease, Neurologic Disorder, Osteoarthritis (OA), Osteoarthritis (OA), Pneumonia, Renal Disease, Seizure Disorder, Sleep Apnea/CPAP/BIPAP Additional Past Medical History / Comment(s): Hx hepatitis c (treated and resolved), questionable MS, bilateral carpal tunnel, Parkinsons Disease, (patient states underwent Deep Brain Stimulation (chip implanted into brain to promote stimulation and treat Parkinson's) in January 2018. States has generators that she will be shutting off for this procedure. Claustrophobic Last seizure 5 yrs ago. Hx ulcers, anemia.Currently not using CPAP, but will be fitted for a mask prior to this procedure. Chronic kidney disease. Hx Pneumonia yrs ago. History of Any Multi-Drug Resistant Organisms: None Reported Past Surgical History: Back Surgery, Bariatric Surgery, Section, Cholecystectomy, Joint Replacement, Orthopedic Surgery, Tonsillectomy Additional Past Surgical History / Comment(s): Kidney and liver biopsy, Section X4, right knee replacement X2, 7 ARTHROSCOPIC KNEE SURGERIES - 6 ON THE RIGHT AND 1 ON THE LEFT, left ankle surgery. sleeve gastrectomy 05-21-18, Past Anesthesia/Blood Transfusion Reactions: Motion Sickness Additional Past Anesthesia/Blood Transfusion Reaction / Comment(s): Claustrophobic. Smoking Status: Former smoker, Never smoker - Past Family History Brother(s) Family Medical History: Pulmonary Embolus Sister(s) Family Medical History: Cancer Additional Family Medical History / Comment(s): Breast cancer. Father Family Medical History: Hypertension, Osteoarthritis (OA) Mother Family Medical History: Cancer, Hypertension Additional Family Medical History / Comment(s): Breast Cancer. Medications and Allergies Home Medications Medication Instructions Recorded Confirmed Type lamoTRIgine [LaMICtal] 100 mg PO BID 06/02/14 03/09/20 History Prochlorperazine [Compazine] 5 mg PO BID PRN 03/13/17 03/09/20 History Topiramate [Topamax] 100 mg PO BID 03/13/17 03/09/20 History Magnesium Oxide [Mag-Ox] 400 mg PO DAILY 12/24/17 03/09/20 History PARoxetine HCL 40 mg PO HS 01/14/18 03/09/20 History Gabapentin [Neurontin] 400 mg PO TID 05/21/18 03/09/20 History Albuterol Sulfate [Ventolin HFA] 2 puff INHALATION RT-QID PRN 12/07/19 03/09/20 History Baclofen [Lioresal] 10 mg PO BID PRN 12/07/19 03/09/20 History Beclomethasone Dip 80 Mcg/Puff 1 puff INHALATION RT-BID 12/07/19 03/09/20 History [Qvar 80 mcg] Ergocalciferol (Vitamin D2) 50,000 unit PO Q14D 12/07/19 03/09/20 History [Drisdol] Fluticasone Nasal [place] [Flonase 2 spr EA NOSTRIL DAILY PRN 12/07/19 03/09/20 History Nasal [place]] Loratadine 10 mg PO HS 12/07/19 03/09/20 History Meloxicam [Mobic] 7.5 mg PO BID PRN 12/07/19 03/09/20 History Montelukast Sodium [Singulair] 10 mg PO HS 12/07/19 03/09/20 History Umeclidinium [place] [Incruse 1 puff INHALATION RT-HS 12/07/19 03/09/20 History Ellipta] oxyCODONE-APAP 10-325MG [Percocet 1 tab PO TID 12/07/19 03/09/20 History 10-325 mg] rOPINIRole HCL 3 mg PO TID 12/07/19 03/09/20 History Bacitracin [place] Oint 1 applic TOPICAL BID 03/09/20 03/09/20 History PARoxetine HCL [Paxil] 10 mg PO DAILY 03/09/20 03/09/20 History Pantoprazole [Protonix] 40 mg PO DAILY 03/09/20 03/09/20 History atenoloL [Atenolol] 25 mg PO DAILY 03/09/20 03/09/20 History Allergies Allergy/AdvReac Type Severity Reaction Status Date / Time metoclopramide HCl Allergy Severe Anaphylaxis Verified 03/09/20 18:25 [From Reglan] adhesive Allergy Rash/Hives Verified 03/09/20 18:25 (paper tape ok) azithromycin [From Zithromax] AdvReac Itching Verified 03/09/20 18:25 sucralfate [From Carafate] AdvReac Nausea & Verified 03/09/20 18:25 Vomiting Physical Exam Vitals: Vital Signs Temp Pulse Pulse Pulse Resp BP BP 03/10/20 15:57 88 03/10/20 15:48 92 03/10/20 15:00 97.2 F L 94 100 18 91/52 03/10/20 11:24 90 03/10/20 11:16 88 03/10/20 09:00 98.4 F 94 17 106/73 03/10/20 07:42 80 03/10/20 07:31 78 03/10/20 03:46 98.3 F 78 16 83/53 03/09/20 20:10 97.9 F 95 16 84/51 03/09/20 19:36 99 03/09/20 19:30 93 03/09/20 18:51 98.2 F 93 17 99/68 03/09/20 18:33 98.0 F 94 16 104/67 03/09/20 17:22 98.2 F 101 H 18 100/63 Pulse Ox 03/10/20 15:57 03/10/20 15:48 03/10/20 15:00 100 03/10/20 11:24 03/10/20 11:16 03/10/20 09:00 98 03/10/20 07:42 03/10/20 07:31 03/10/20 03:46 99 03/09/20 20:10 96 03/09/20 19:36 03/09/20 19:30 03/09/20 18:51 98 03/09/20 18:33 99 03/09/20 17:22 99 Intake and Output 03/10/20 03/10/20 03/10/20 06:59 14:59 22:59 Other: Voiding Method Toilet # Voids 2 PHYSICAL EXAMINATION: GENERAL: The patient is alert and oriented x3, not in any acute distress. Well developed, well nourished. HEENT: Pupils are round and equally reacting to light. EOMI. No scleral icterus. No conjunctival pallor. Normocephalic, atraumatic. No pharyngeal erythema. No thyromegaly. CARDIOVASCULAR: S1 and S2 present. No murmurs, rubs, or gallops. PULMONARY: Chest is clear to auscultation, no wheezing or crackles. ABDOMEN: Soft, nontender, nondistended, normoactive bowel sounds. No palpable organomegaly. MUSCULOSKELETAL: No joint swelling or deformity. Equal site area and sutures looked clean EXTREMITIES: No cyanosis, clubbing, or pedal edema. NEUROLOGICAL: Gross neurological examination did not reveal any focal deficits. SKIN: No rashes. Results CBC & Chem 7: 03/09/20 17:45 03/09/20 17:45 Labs: Abnormal Lab Results - Last 24 Hours (Table) 03/09/20 03/09/20 03/09/20 Range/Units 17:45 17:45 18:12 RBC 3.60 L (3.80-5.40) m/uL MCV 100.1 H (80.0-100.0) fL Chloride 110 H (98-107) mmol/L Carbon Dioxide 20 L (22-30) mmol/L Creatinine 1.38 H (0.52-1.04) mg/dL Glucose 124 H (74-99) mg/dL Urine Protein Trace H (Negative) Urine Ketones Trace H (Negative) Ur Leukocyte Esterase Moderate H (Negative) Urine Mucus Rare H (None) /hpf Thrombosis Risk Factor Assmnt - Choose All That Apply Each Factor Represents 1 point: Age 41-60 years Thrombosis Risk Factor Assessment Total Risk Factor Score: 1 Thrombosis Risk Factor Assessment Level: Low Risk Assessment and Plan Plan: -Post surgical wound infection, patient pulled out PICC line the PICC line was ordered once she gets a PICC line patient will be discharged and will complete the rest of the duration of antibiotics -COPD without any acute exacerbation [place] haven't seizure disorder patient was resumed on her home seizure medication patient doesn't have any recent seizures -Hypertension -Hyperlipidemia -Sleep apnea for which the patient uses CPAP machine which she can continue -Chronic kidney 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
[2020-03-10] MEDS ORDERED: LIDOCAINE 1% INJ 10MG/ML (20 ML MDV) SQ ONE (17:36)
[2020-03-10] MEDS ORDERED: HEPARIN SODIUM,PORCINE 5,000 UNIT/ML 1 ML VIAL SQ SCH (21:00)
--- NOTE | 2020-03-12 08:05 | IR ---
PICC LINE PLACEMENT: HISTORY: Infection requiring long-term antibiotic therapy PROCEDURE: Ultrasound and fluoroscopic guidance of PICC line placement. COMPLICATIONS: None ANESTHESIA: 1. 1% Lidocaine locally. FINDINGS/TECHNIQUE: The procedure was explained to the patient. The risks, complications, benefits and alternatives were discussed and any questions were answered. Informed consent was obtained. The patient was placed supine on the fluoroscopic table and prepped and draped in the usual sterile fash ion. Utilizing a 21 gauge needle and sonographic and fluoroscopic guidance, access in the left basi lic vein was achieved and there is placement of a 0.018 guidewire. The vein is patent. A 4-F sheath was placed over the guidewire. The guidewire and dilator were removed and a 4-F. PICC line was plac ed through the sheath with the tip at the level of the SVC. The sheath was removed, the catheter was flushed and sutured into position. The patient was stable throughout the procedure and remained sta ble upon discharge from the Department of Radiology. The vein puncture was patent under ultrasound. A quinn scale image was obtained to document patency of the vein punctured. All elements of the maximal barrier technique were utilized. FLUOROSCOPY TIME: 0.2 minutes and one image submitted IMPRESSION: Successful PICC line placement under ultrasound and fluoroscopic guidance.
== END 2020-03-10 18:26 | disposition home health service (06) ==
LOC: EC 17:09 → 1SOBS 17:31
PROVIDERS: ADMIT Hospitalist; ATTEND Hospitalist
DX: T81.41XA Infection following a procedure, superficial incisional surgical site, initial encounter (principal); E78.5 Hyperlipidemia, unspecified; F40.240 Claustrophobia; G20 Parkinson's disease; G40.909 Epilepsy, unspecified, not intractable, without status epilepticus; G47.30 Sleep apnea, unspecified; I12.9 Hypertensive chronic kidney disease with stage 1 through stage 4 chronic kidney disease, or unspecified chronic kidney disease; J44.9 Chronic obstructive pulmonary disease, unspecified; L03.90 Cellulitis, unspecified; N17.9 Acute kidney failure, unspecified; N18.2 Chronic kidney disease, stage 2 (mild); Z79.1 Long term (current) use of non-steroidal anti-inflammatories (NSAID); Z79.2 Long term (current) use of antibiotics; Z79.899 Other long term (current) drug therapy; Z80.3 Family history of malignant neoplasm of breast; Z82.49 Family history of ischemic heart disease and other diseases of the circulatory system; Z87.01 Personal history of pneumonia (recurrent); Z87.891 Personal history of nicotine dependence; Z96.651 Presence of right artificial knee joint
CPT/HCPCS: 96361 ×2; 96366; 96365; 99284; 36415; 94640 ×3; 36573; 80053; 82550; 83605; 84484; 85025; 85610; 85730; 81001; G0378 ×2; C1751; C1769; J0690 ×2; J2001

== ENCOUNTER → 2020-05-23 | Outpatient (CLI) | payer OTHER ==
[2020-05-23 09:42] LABS: Basophils % (A) 1 %; Eosinophils # (A) 0.2 k/uL (0-0.7); Eosinophils % (A) 3 %; HCT 38.6 % (34.0-46.0); HGB 12.9 gm/dL (11.4-16.0); Lymphocytes # (A) 1.2 k/uL (1.0-4.8); Lymphocytes % (A) 23 %; MCH 32.2 pg (25.0-35.0); MCHC 33.5 g/dL (31.0-37.0); MCV 96.2 fL (80.0-100.0); Mean Platelet Volume 7.8; Monocytes # (A) 0.3 k/uL (0-1.0); Monocytes % (A) 6 %; Neutrophils # (A) 3.3 k/uL (1.3-7.7); Neutrophils % (A) 66 %; Platelet Count 188 k/uL (150-450); RBC 4.01 m/uL (3.80-5.40); RDW 12.9 % (11.5-15.5)
[2020-05-23 15:12] LABS: ALT 11 U/L (8-44); AST 19 U/L (13-35); Albumin/Globulin Ratio 1.91 (1.60-3.17); Alkaline Phosphatase 138 U/L (41-126); Bilirubin, Conjugated <0.20 mg/dL (0.20-0.40); Globulin 2.3 g/dL (1.6-3.3); Total Bilirubin 0.2 mg/dL (0.3-1.2); Total Protein 6.7 g/dL (6.2-8.2)
[2020-05-24 14:45] LABS: Hepatits C Virus RNA Not detected (Not detected); Hepatits C Virus RNA, Quant <12 IU/mL (<12); LOG HCV IU/mL <1.08 (<1.08)
== END | disposition home or self-care (01) ==
LOC: LABWHC1 08:51
PROVIDERS: ATTEND Physician Assistant
DX: T81.49XA Infection following a procedure, other surgical site, initial encounter (principal); B18.2 Chronic viral hepatitis C
CPT/HCPCS: 36415; 80076; 85025; 87522

== ENCOUNTER → 2020-06-26 | Outpatient (CLI) | payer OTHER ==
[2020-06-26 14:09] VITALS: BP 104/72; PULSE 88; RESP 16; TEMP 98.5; BMI 30.9
--- NOTE | 2020-06-26 16:30 | P.BASOAP ---
Subjective Progress Note Date: 06/26/20 Principal diagnosis: Morbid obesity Patient returns for recheck. Has had worsening reflux and intermittent vomiting lately. Had 2 back surgeries in March and April. Patient has lost additional weight. She will switched her omeprazole to Protonix. Does not find that to be helpful. Occasional episodes of hematemesis. Has been on steroids intermittently. Denies NSAID use. Is taking Percocet. Sleeve gastrectomy performed May 2019. Objective - Vital Signs Vital signs: Vital Signs Temp 98.5 F 06/26/20 14:06 Pulse 88 06/26/20 14:06 Resp 16 06/26/20 14:06 BP 104/72 06/26/20 14:06 Pulse Ox Intake & Output 06/25/20 06/26/20 06/26/20 18:59 06:59 18:59 Weight 79.379 kg - Exam Abdomen: Soft, nontender, nondistended Assessment/Plan (1) Morbid obesity Narrative/Plan: Patient with worsening reflux and intermittent vomiting along with occasional episodes of hematemesis post sleeve gastrectomy in the past. Continue holding NSAIDs if possible. We'll check upper GI. Based on that study may consider upper endoscopy and/or Carafate use. Will contact patient once upper GI completed. Plan: Date: 06/26/20 Initial Weight: 104.462 kg Initial BMI: 40.8 Current Weight: 79.379 kg Current BMI: 30.9 Type of Surgery: Vertical Sleeve Gastrectomy Total Volume in Band: Previous Volume: Volume Removed: Volume Added: Band Size:
== END | disposition home or self-care (01) ==
LOC: BARWHC3 13:54
PROVIDERS: ATTEND Surgery
DX: E66.01 Morbid (severe) obesity due to excess calories (principal); Z68.41 Body mass index [BMI] 40.0-44.9, adult; Z98.84 Bariatric surgery status
CPT/HCPCS: 99211

== ENCOUNTER → 2020-06-27 | Outpatient (CLI) | payer OTHER ==
--- NOTE | 2020-06-27 10:32 | CT ---
EXAMINATION TYPE: CT abdomen pelvis wo con DATE OF EXAM: 06/27/2020 HISTORY: Sacrococcygeal disorders. Right lower quadrant pain. Lesion of kidney. CT DLP: 963 mGycm. Automated Exposure Control for Dose Reduction was Utilized. TECHNIQUE: CT scan of the abdomen and pelvis is performed without oral or IV contrast. IV contrast c annot be given due to patient's diminished renal function. COMPARISON: CT lumbar spine April 04, 2019 and older MRI lumbar spine studies. FINDINGS: Within the limitations of a non-contrast study, the following observations are made. LUNG BASES: Some scattered bilateral pulmonary nodules. For reference there is 8 x 6 mm subpleural le ft lower lobe nodule image 9. For reference there is 7 x 5 mm right lower lobe peripheral nodule axia l image 6. Additional scattered smaller nodules. Follow-up advised. Mild bibasilar linear scarring an d/or atelectasis. LIVER/GB: Cholecystectomy clips. PANCREAS: No significant abnormality is seen. SPLEEN: No significant abnormality is seen. ADRENALS: No significant abnormality is seen. KIDNEYS: There are nonobstructing renal calculi bilaterally, approximately 3-4 left-sided renal calcu li up to 5 mm in size lower pole level coronal image 42. There are 4-5 right-sided renal calculi all measuring under 4 mm in size. There is 5 to 6 mm peripheral calcification in the right kidney posteri yara upper to mid pole level axial image 30. Some cortical thinning bilaterally. No hydronephrosis is seen bilaterally. Scattered bilateral pelvic phleboliths. BOWEL: Suboptimal evaluation without enteric contrast. Surgical changes from stomach probable gastric sleeve surgery noted. There is partial visualization of mild to moderately dilated distal esophagus with air-fluid level to site of surgery were there is small to moderate size hiatal hernia as surgica l sutures extend above the diaphragm. No suspicious small or large bowel dilatation is present. GENITAL ORGANS: Anteverted uterus. LYMPH NODES: No greater than 1cm abdominal or pelvic lymph nodes are appreciated. Some prominent but subcentimeter bilateral groin lymph nodes. OSSEOUS STRUCTURES: Moderate axial joint space loss in both hips with mild to moderate left greater t bowman right acetabular spurring. Sacroiliac joints are maintained. Moderate to severe disc space narrow ing with vacuum disc phenomenon lumbosacral junction. Mild disc space narrowing L4-L5 level. Multilev el facet arthropathy mid to lower lumbar spine. Posterior scar tissue is present. OTHER: No significant additional abnormality is seen. IMPRESSION: 1. Small bilateral renal calculi. No hydronephrosis or obstructing ureteral calculi bilaterally. No a cute findings identified to account for patient's symptoms of right lower quadrant pain. 2. Scattered bilateral pulmonary nodules. Follow-up contrast-enhanced chest CT is advised to rule out neoplasm.
== END | disposition home or self-care (01) ==
LOC: RADCTMAIN 08:54
PROVIDERS: ATTEND Psychiatry & Neurology Neurology
DX: N20.0 Calculus of kidney (principal); Z51.81 Encounter for therapeutic drug level monitoring; Z79.899 Other long term (current) drug therapy
CPT/HCPCS: 74176; 82565; 84520

== ENCOUNTER → 2020-07-19 | Outpatient (CLI) | payer OTHER ==
--- NOTE | 2020-07-19 08:32 | CT ---
EXAMINATION TYPE: CT chest wo con DATE OF EXAM: 07/19/2020 COMPARISON: None HISTORY: Neoplasm of the lung CT DLP: [address] of the chest was performed with lung and mediastinal window settings submitted. The la ck of contrast limits evaluation of the vascular, mediastinal and parenchymal structures including th e upper abdomen. LUNGS: 2 mm pulmonary nodules right upper lobe image 32. 4 mm pulmonary nodule right upper lobe image 33. 3 mm pulmonary nodule right upper lobe image 34. 3 mm pulmonary nodule right lower lobe image 36 . 5 mm pleural-based pulmonary nodule left lower lobe image 35. 4 mm lingular nodule image 32. 5 mm l eft lower lobe pulmonary nodule image 28. 3 mm pulmonary nodules 2 in number left upper lobe image 12 . No pulmonary masses. No evidence for infiltrate, pleural effusion or volume loss. MEDIASTINUM/CANDY: Thoracic aorta is of normal caliber with limited evaluation given lack of contrast . The heart is not enlarged. No evidence for mediastinal mass. No lymph nodes greater than 1cm. H iatal hernia and the patient is status post Gentry fundoplication. UPPER ABDOMEN: Cholecystectomy clips are in place. OTHER: No significant other abnormality. IMPRESSION: 1. Multiple nonspecific pulmonary nodules. Follow-up CT of the chest is recommended in 6 months.
== END | disposition home or self-care (01) ==
LOC: RADCTMAIN 07:42
PROVIDERS: ATTEND Psychiatry & Neurology Neurology
DX: R91.8 Other nonspecific abnormal finding of lung field (principal); D49.1 Neoplasm of unspecified behavior of respiratory system; N18.9 Chronic kidney disease, unspecified
CPT/HCPCS: 71250

== ENCOUNTER → 2020-09-28 | Outpatient (CLI) | payer OTHER ==
[2020-09-28 18:52] LABS: Basophils # (A) 0.03 X 10*3/uL (0.00-0.10); Basophils % (A) 0.8 %; Eosinophils # (A) 0.13 X 10*3/uL (0.04-0.35); Eosinophils % (A) 3.4 %; HCT 37.8 % (37.2-46.3); HGB 11.2 g/dL (12.0-15.0); Lymphocytes # (A) 1.01 X 10*3/uL (0.90-5.00); Lymphocytes % (A) 26.7 %; MCH 29.6 pg (27.0-32.0); MCHC 29.6 g/dL (32.0-37.0); MCV 99.7 fL (80.0-97.0); Mean Platelet Volume 10.8 fL (9.5-12.2); Monocytes # (A) 0.33 X 10*3/uL (0.20-1.00); Monocytes % (A) 8.7 %; Neutrophils # (A) 2.27 X 10*3/uL (1.80-7.70); Neutrophils % (A) 60.1 %; Platelet Count 173 X 10*3/uL (140-440); RBC 3.79 X 10*6/uL (4.10-5.20); Reticulocyte % 1.26 % (0.10-1.80); WBC 3.78 X 10*3/uL (4.50-10.00)
[2020-09-28 21:32] LABS: Hemoglobin A1C 5.5 % (4.0-6.0)
[2020-09-28 22:47] LABS: Follicle Stimulating Hormone 91.4 mIU/mL; Luteinizing Hormone 29.4 mIU/mL
[2020-09-28 23:05] LABS: Folate, Serum 3.6 ng/mL
[2020-09-28 23:33] LABS: % Iron Saturation 22.01 (12.00-45.00); ALT 10 U/L (8-44); AST 18 U/L (13-35); African American GFR (CKD) 48.9 (60.0-200.0); Alkaline Phosphatase 132 U/L (41-126); BUN/Creat Ratio 16.43 Ratio (12.00-20.00); C Reactive Protein <0.4 mg/dL (0.0-0.8); Calcium 9.1 mg/dL (8.7-10.3); Carbon Dioxide 23.9 mmol/L (21.6-31.8); Chloride 110 mmol/L (96-109); Ferritin 11.8 ng/mL (10.0-291.0); Globulin 2.5 g/dL (1.6-3.3); Glucose 110 mg/dL (70-110); Iron 68 ug/dL (50-170); Non-African American GFR(CKD) 42.2 (60.0-200.0); Potassium 4.9 mmol/L (3.5-5.5); Sodium 142 mmol/L (135-145); Total Bilirubin 0.3 mg/dL (0.3-1.2); Total Iron Binding Capacity 309 ug/dL (228-460); Total Protein 6.5 g/dL (6.2-8.2)
[2020-10-01 08:45] LABS: Levetiracetam (Keppra) 44.2 ug/mL (3.0-60.0)
[2020-10-01 09:53] LABS: Lamotrigine (Lamictal) 2.7 ug/mL (2.0-15.0)
== END | disposition home or self-care (01) ==
LOC: LABWHC1 09:21
PROVIDERS: ATTEND Psychiatry & Neurology Pain Medicine
DX: Z51.81 Encounter for therapeutic drug level monitoring (principal); K90.89 Other intestinal malabsorption; E55.9 Vitamin D deficiency, unspecified; R53.82 Chronic fatigue, unspecified; E66.01 Morbid (severe) obesity due to excess calories; R53.81 Other malaise
CPT/HCPCS: 36415; 80053; 80175; 80177; 82306; 82533; 82607; 82626; 82668; 82728; 82746; 83001; 83002; 83003; 83036; 83540; 83550; 84207; 84305; 84425; 84439; 84443; 84466; 84481; 85025; 85045; 86140

== ENCOUNTER → 2020-12-14 | Outpatient (CLI) | payer OTHER ==
--- NOTE | 2020-12-14 10:29 | FL ---
EXAMINATION TYPE: FL UGI DATE OF EXAM: 12/14/2020 COMPARISON: 05/22/2018 HISTORY: Nausea and vomiting in patient with history of prior gastric sleeve TECHNIQUE: A single contrast UGI study is performed. A total of 41 seconds of fluoroscopic time was utilized during procedure and 102 images obtained. FINDINGS: There is marked delay of transit of contrast from the esophagus into the stomach with poor motility. The esophagus is dilated. A transient hernia is present at the gastroesophageal junction. Patient is status post gastric sleeve. There is normal-appearing transit of contrast from the stomach into the s mall bowel loops. There is spontaneous reflux up to the level of the cervical esophagus and the patie nt felt nauseous and nearly vomited during the examination. IMPRESSION: Poor motility of the dilated esophagus with transient hernia at the gastroesophageal junction and mar ked spontaneous esophageal reflux to the level of the cervical esophagus resulting in nausea and near vomiting of the patient. Patient is status post gastric sleeve.
== END | disposition home or self-care (01) ==
LOC: RADUSWWP 09:12
PROVIDERS: ATTEND Internal Medicine
DX: K21.9 Gastro-esophageal reflux disease without esophagitis (principal); K44.9 Diaphragmatic hernia without obstruction or gangrene; Z98.84 Bariatric surgery status
CPT/HCPCS: 74240

== ENCOUNTER 2020-12-25 07:52 | Day surgery (SDC) | payer OTHER ==
[2020-12-24 10:12] VITALS: BMI 27.8
[~2020-12-25 07:52] MED LIST changes: -DEXAMETHASONE SOD PHOSPHATE 10 MG/ML 1 ML VIAL IV ONE; -ENOXAPARIN 40 MG/0.4 ML SYRINGE SQ ONE; -HYDROmorphone 0.5 MG/0.5 ML SYRINGE IVP PRN; +LACTATED RINGERS 1,000 ML IV SCH; -MIDAZOLAM (PF) 2 MG/2 ML VIAL IV PRN; -ONDANSETRON 4 MG/2 ML VIAL IVP ONE; -SCOPOLAMINE 1.5MG/72HR PATCH TRANSDERM ONE; -ceFAZolin IN SWFI 2 GM/20 ML SYRINGE IVP ONE
[2020-12-25 08:23] VITALS: TEMP 97
[2020-12-25] MEDS ORDERED: LIDOCAINE 1% INJ 10MG/ML (20 ML MDV) ONE (08:36)
[2020-12-25] MEDS ORDERED: PROPOFOL 10 MG/ML 20 ML VIAL IV ONE (08:36)
--- NOTE | 2020-12-25 08:40 | P.GSHP ---
History of Present Illness H&P Date: 12/25/20 Chief Complaint: GERD Patient today for upper endoscopy. Patient with history of previous sleeve gastrectomy. Had a CAT scan performed showing small hiatal hernia. Recent upper GI showed significant reflux. Patient with some symptom relief with Protonix daily. Past Medical History Past Medical History: Asthma, COPD, GERD/Reflux, Hyperlipidemia, Hypertension, Liver Disease, Neurologic Disorder, Osteoarthritis (OA), Osteoarthritis (OA), Pneumonia, Renal Disease, Seizure Disorder, Sleep Apnea/CPAP/BIPAP Additional Past Medical History / Comment(s): Hx hepatitis c (treated and resolved), questionable MS, bilateral carpal tunnel, Parkinsons Disease, (patient states underwent Deep Brain Stimulation (chip implanted into brain to promote stimulation and treat Parkinson's) in January 2018. States has g enerators that she will be shutting off for this procedure. Claustrophobic Last seizure 5 yrs ago. Hx ulcers, anemia.Currently not using CPAP, but will be fitted for a mask prior to this procedure. Chronic kidney disease. Hx Pneumonia yrs ago. History of Any Multi-Drug Resistant Organisms: None Reported Past Surgical History: Back Surgery, Bariatric Surgery, Section, Cholecystectomy, Joint Replacement, Orthopedic Surgery, Tonsillectomy Additional Past Surgical History / Comment(s): Kidney and liver biopsy, Section X4, right knee replacement X2, 7 ARTHROSCOPIC KNEE SURGERIES - 6 ON THE RIGHT AND 1 ON THE LEFT, left ankle surgery. sleeve gastrectomy 05-21-18, EGD, COLONOSCOPY Past Anesthesia/Blood Transfusion Reactions: Motion Sickness Additional Past Anesthesia/Blood Transfusion Reaction / Comment(s): Claustrophobic. Smoking Status: Former smoker - Past Family History Brother(s) Family Medical History: Pulmonary Embolus Sister(s) Family Medical History: Cancer Additional Family Medical History / Comment(s): Breast cancer. Mother Family Medical History: Cancer, Hypertension Additional Family Medical History / Comment(s): Breast Cancer. Medications and Allergies Home Medications Medication Instructions Recorded Confirmed Type lamoTRIgine [LaMICtal] 100 mg PO BID 06/02/14 12/24/20 History Prochlorperazine [Compazine] 5 mg PO BID PRN 03/13/17 12/24/20 History Topiramate [Topamax] 100 mg PO BID 03/13/17 12/24/20 History Magnesium Oxide [Mag-Ox] 400 mg PO DAILY 12/24/17 12/24/20 History PARoxetine HCL 40 mg PO HS 01/14/18 12/24/20 History Gabapentin [Neurontin] 400 mg PO QID 05/21/18 12/24/20 History Baclofen [Lioresal] 10 mg PO BID 12/07/19 12/24/20 History Ergocalciferol (Vitamin D2) 50,000 unit PO Q14D 12/07/19 12/24/20 History [Drisdol (50,000 Iu)] Loratadine 10 mg PO DAILY 12/07/19 12/24/20 History Montelukast Sodium [Singulair] 10 mg PO DAILY 12/07/19 12/24/20 History oxyCODONE-APAP 10-325MG [Percocet 1 tab PO QID 12/07/19 12/24/20 History 10-325 mg] rOPINIRole HCL 3 mg PO QID 12/07/19 12/24/20 History PARoxetine HCL [Paxil] 10 mg PO DAILY 03/09/20 12/24/20 History Pantoprazole [Protonix] 40 mg PO BID 03/09/20 12/24/20 History atenoloL [Atenolol] 25 mg PO DAILY 03/09/20 12/24/20 History Omalizumab [Xolair] 75 mg SQ DIRECTED 06/26/20 12/25/20 History Doxycycline Monohydrate 100 mg PO BID 12/24/20 12/24/20 History levETIRAcetam [Keppra] 750 mg PO Q12HR 12/24/20 12/24/20 History Allergies Allergy/AdvReac Type Severity Reaction Status Date / Time metoclopramide HCl Allergy Severe Anaphylaxis Verified 12/25/20 08:26 [From Reglan] adhesive Allergy Rash/Hives Verified 12/25/20 08:26 (paper tape ok) azithromycin [From Zithromax] AdvReac Itching Verified 12/25/20 08:26 sucralfate [From Carafate] AdvReac Nausea & Verified 12/25/20 08:26 Vomiting Surgical - Exam Vital Signs Temp Pulse Resp BP Pulse Ox 97.0 F L 75 17 101/59 95 12/25/20 08:21 12/25/20 08:21 12/25/20 08:21 07/27/21 08:21 12/25/20 08:21 Physical exam: General: Well-developed, well-nourished HEENT: Normocephalic, sclerae nonicteric Abdomen: Nontender, nondistended Extremities: No edema Neuro: Alert and oriented Assessment and Plan (1) GERD (gastroesophageal reflux disease) Narrative/Plan: Will proceed with upper endoscopy Current Visit: No Status: Acute Code(s): K21.9 - GASTRO-ESOPHAGEAL REFLUX DISEASE WITHOUT ESOPHAGITIS SNOMED Code(s): 872451518
--- NOTE | 2020-12-25 08:59 | P.PCN ---
Date of Procedure: 12/25/20 Procedure(s) Performed: Preoperative Dx: GERD Postoperative Dx: Mild gastritis, small hiatal hernia Procedure: EGD with Bx Anesthesia: Sedation Endoscopist: Dr. Ivy Specimens: Antrum Endoscopic Procedure: The patient was on the endoscopy table in the left decubitus position. The Olympus gastroscope was inserted into the oropharynx and passed under direct visualization to the region of the third portion of the duodenum. From that point the scope was slowly withdrawn inspecting all surfaces carefully. There were no neoplastic inflammatory or polypoid lesions throughout the duodenum. The pylorus was widely patent. The stomach was carefully inspected. There was mild gastritis present. A biopsy of the antrum took place. No retroflexion could occur because of the patient's previous sleeve gastrectomy. The sleeve itself appeared normal. The patient's esophagus was examined. There was noted to be a small hiatal hernia with the GE junction present 2 cm above the diaphragmatic hiatus. The remainder the esophagus appeared normal. The patient was then taken to the recovery room in stable condition per anesthesia guidelines. Recommendations: Await biopsy results. Continue antiacid therapy.
[2020-12-25 09:18] VITALS: BP 100/66; PULSE 73; RESP 16
== END 2020-12-25 09:55 | disposition home or self-care (01) ==
LOC: ORWHC2ENDO 07:52
PROVIDERS: ATTEND Surgery
DX: K31.9 Disease of stomach and duodenum, unspecified (principal); J44.9 Chronic obstructive pulmonary disease, unspecified; K21.9 Gastro-esophageal reflux disease without esophagitis; E78.5 Hyperlipidemia, unspecified; K76.9 Liver disease, unspecified; M19.90 Unspecified osteoarthritis, unspecified site; Z87.01 Personal history of pneumonia (recurrent); N28.9 Disorder of kidney and ureter, unspecified; G40.909 Epilepsy, unspecified, not intractable, without status epilepticus; G47.30 Sleep apnea, unspecified; Z86.19 Personal history of other infectious and parasitic diseases; Z98.890 Other specified postprocedural states; G20 Parkinson's disease; F40.240 Claustrophobia; I12.9 Hypertensive chronic kidney disease with stage 1 through stage 4 chronic kidney disease, or unspecified chronic kidney disease; N18.9 Chronic kidney disease, unspecified; Z87.891 Personal history of nicotine dependence; Z82.49 Family history of ischemic heart disease and other diseases of the circulatory system; Z80.3 Family history of malignant neoplasm of breast; Z79.899 Other long term (current) drug therapy; Z88.1 Allergy status to other antibiotic agents; Z88.8 Allergy status to other drugs, medicaments and biological substances; Z91.09 Other allergy status, other than to drugs and biological substances
CPT/HCPCS: 88305; 43239; J2001; J2704

== ENCOUNTER → 2021-02-05 | Outpatient (CLI) | payer OTHER ==
[2021-02-05 13:46] VITALS: BP 106/71; PULSE 63; TEMP 97.9; BMI 29.2
--- NOTE | 2021-02-05 17:12 | P.BASOAP ---
Subjective Progress Note Date: 02/05/21 Principal diagnosis: Morbid obesity Patient returns for evaluation. Remains on heavy narcotics for chronic neck and back pain. Her Keppra was recently increased as well because of possible seizure activity. Today in the clinic the patient seems off, almost as an intoxicated appearance. Status because of her medications. Still having issues with acid reflux and chronic cough. Says she has to sleep seated up. Recent EGD showed no definite abnormalities in November. Esophagram showed motility issues. Denies abdominal pain. Objective - Vital Signs Vital signs: Vital Signs Temp 97.9 F 02/05/21 13:40 Pulse 63 02/05/21 13:40 Resp BP 106/71 02/05/21 13:40 Pulse Ox Intake & Output 02/04/21 02/05/21 02/05/21 18:59 06:59 18:59 Weight 74.843 kg - Exam Abdomen: Soft, nontender, nondistended Assessment/Plan (1) GERD (gastroesophageal reflux disease) Narrative/Plan: Patient with ongoing issues related to reflux regurgitation and chronic cough. No recent upper GI and EGD results reviewed. Will have patient seen by GI at tertiary care institution for assessment of motility issues. Discussed that following that referral to bariatrics for possible conversion to gastric bypass may be an option. Plan: Date: 02/05/21 Initial Weight: 104.462 kg Initial BMI: 40.8 Current Weight: 74.843 kg Current BMI: 29.2 Type of Surgery: Total Volume in Band: Previous Volume: Volume Removed: Volume Added: Band Size:
== END | disposition home or self-care (01) ==
LOC: BARWHC3 13:06
PROVIDERS: ATTEND Surgery
DX: E66.01 Morbid (severe) obesity due to excess calories (principal); K21.9 Gastro-esophageal reflux disease without esophagitis; R05 Cough; Z68.29 Body mass index [BMI] 29.0-29.9, adult
CPT/HCPCS: 99211

== ENCOUNTER 2023-02-11 14:40 | Emergency (ER) | payer OTHER ==
[2023-02-11 14:53] VITALS: BP 105/66; PULSE 70; RESP 18; TEMP 97.8
--- NOTE | 2023-02-11 16:26 | ED ---
General Adult HPI - General Source: patient, RN notes reviewed Mode of arrival: wheelchair Limitations: no limitations <Trinidad Taveras - Last Filed: 02/11/23 16:22> <Jill Holden - Last Filed: 02/11/23 23:06> - General Chief complaint: Weakness Stated complaint: weakness and falls Time Seen by Provider: 02/11/23 16:25 - History of Present Illness Initial comments: 57-year-old female presents emergency department with a chief complaint of frequent falls and increased weakness for the last 3 days. It is unknown whether she hit her head. She denies any fever, saddle paresthesia, loss of bowel or bladder function. Denies headache or vision changes or vision loss. (Trinidad Taveras) Patient is a 57-year-old female who presents to the emergency department for weakness. Patient reports increased weakness and daily falls for the past 3 days. She denies focal weakness states overall she does not feel well. She denies head trauma loss of consciousness. She is not on blood thinners. Patient has mild pain in both of her hips, right thigh, right foot from the last fall. She denies headache, nausea, vomiting. Denies numbness and tingling. Denies dizziness, lightheadedness, chest pain and shortness of breath. Denies fever, upper respiratory symptoms. No urinary symptoms (Jill Holden) - Related Data Home Medications Medication Instructions Recorded Confirmed lamoTRIgine [LaMICtal] 100 mg PO BID 06/02/14 02/05/21 Prochlorperazine [Compazine] 5 mg PO BID PRN 03/13/17 02/05/21 Topiramate [Topamax] 100 mg PO BID 03/13/17 02/05/21 Magnesium Oxide [Mag-Ox] 400 mg PO DAILY 12/24/17 02/05/21 PARoxetine HCL 40 mg PO HS 01/14/18 02/05/21 Gabapentin [Neurontin] 400 mg PO BID@0800,1200 05/21/18 02/05/21 Baclofen [Lioresal] 10 mg PO BID 12/07/19 02/05/21 Ergocalciferol (Vitamin D2) 1,250 mcg PO Q14D 12/07/19 02/05/21 [Drisdol (50,000 Iu)] Loratadine 10 mg PO DAILY 12/07/19 02/05/21 Montelukast Sodium [Singulair] 10 mg PO DAILY 12/07/19 02/05/21 oxyCODONE-APAP 10-325MG [Percocet 1 tab PO QID PRN 12/07/19 02/05/21 10-325 mg] rOPINIRole HCL [Requip] 3 mg PO BID@0800,1200 12/07/19 02/05/21 PARoxetine HCL [Paxil] 10 mg PO DAILY 03/09/20 02/05/21 Pantoprazole [Protonix] 40 mg PO BID 03/09/20 02/05/21 atenoloL 25 mg PO DAILY 03/09/20 02/05/21 Doxycycline Monohydrate 100 mg PO BID 12/24/20 02/05/21 levETIRAcetam [Keppra] 1,500 mg PO BID 12/24/20 02/05/21 Albuterol Sulfate [Proair Hfa] 2 puff INHALATION RT-QID PRN 01/01/21 02/05/21 Fluticasone Propionate [Flovent 2 puff INHALATION RT-BID 01/01/21 02/05/21 Hfa 220 mcg] Gabapentin [Neurontin] 800 mg PO HS 01/01/21 02/05/21 Nystatin 100,000Unit/gm Cream 1 applic TOPICAL BID 01/01/21 02/05/21 [Mycostatin Cream] Omalizumab [Xolair] 150 mg SQ Q28D 01/01/21 02/05/21 rOPINIRole HCL [Requip] 6 mg PO HS 01/01/21 02/05/21 Allergies Allergy/AdvReac Type Severity Reaction Status Date / Time metoclopramide HCl Allergy Severe Anaphylaxis Verified 02/11/23 14:49 [From Reglan] adhesive Allergy Rash/Hives Verified 02/11/23 14:49 (paper tape ok) azithromycin [From Zithromax] AdvReac Itching Verified 02/11/23 14:49 sucralfate [From Carafate] AdvReac Nausea & Verified 02/11/23 14:49 Vomiting Review of Systems ROS Other: All systems not noted in ROS Statement are negative. <Trinidad Taveras - Last Filed: 02/11/23 16:22> ROS Other: All systems not noted in ROS Statement are negative. <Jill Holden - Last Filed: 02/11/23 23:06> ROS Statement: Those systems with pertinent positive or pertinent negative responses have been documented in the HPI. Past Medical History Past Medical History: Asthma, COPD, GERD/Reflux, Hyperlipidemia, Hypertension, Liver Disease, Neurologic Disorder, Osteoarthritis (OA), Osteoarthritis (OA), Pneumonia, Renal Disease, Seizure Disorder, Sleep Apnea/CPAP/BIPAP Additional Past Medical History / Comment(s): Hx hepatitis c (treated and resolved), questionable MS, bilateral carpal tunnel, Parkinsons Disease, (patient states underwent Deep Brain Stimulation (chip implanted into brain to promote stimulation and treat Parkinson's) in January 2018. States has generators that she will be shutting off for this procedure. Claustrophobic Last seizure 5 yrs ago. Hx ulcers, anemia.Currently not using CPAP, but will be fitted for a mask prior to this procedure. Chronic kidney disease. Hx Pneumonia yrs ago. History of Any Multi-Drug Resistant Organisms: None Reported Past Surgical History: Back Surgery, Bariatric Surgery, Section, Cholec ystectomy, Joint Replacement, Orthopedic Surgery, Tonsillectomy Additional Past Surgical History / Comment(s): Kidney and liver biopsy, Section X4, right knee replacement X2, 7 ARTHROSCOPIC KNEE SURGERIES - 6 ON THE RIGHT AND 1 ON THE LEFT, left ankle surgery. sleeve gastrectomy 05-21-18, EGD, COLONOSCOPY laminectomy Past Anesthesia/Blood Transfusion Reactions: Motion Sickness Additional Past Anesthesia/Blood Transfusion Reaction / Comment(s): Claustrophobic. Past Psychological History: Anxiety Smoking Status: Former smoker Past Alcohol Use History: None Reported Past Drug Use History: None Reported - Past Family History Brother(s) Family Medical History: Pulmonary Embolus Sister(s) Family Medical History: Cancer Additional Family Medical History / Comment(s): Breast cancer. Mother Family Medical History: Cancer, Hypertension Additional Family Medical History / Comment(s): Breast Cancer. <Trinidad Taveras - Last Filed: 02/11/23 16:22> General Exam Limitations: no limitations <Trinidad Taveras - Last Filed: 02/11/23 16:22> General appearance: alert Head exam: Present: atraumatic, normocephalic, normal inspection Eye exam: Present: normal appearance, PERRL, EOMI. Absent: scleral icterus, conjunctival injection, periorbital swelling Respiratory exam: Present: normal lung sounds bilaterally. Absent: respiratory distress, wheezes, rales, rhonchi, stridor Cardiovascular Exam: Present: regular rate, normal rhythm, normal heart sounds. Absent: systolic murmur, diastolic murmur, rubs, gallop, clicks GI/Abdominal exam: Present: soft, normal bowel sounds. Absent: distended, tenderness, guarding, rebound, rigid Neurological exam: Present: alert, oriented X3 Psychiatric exam: Present: normal affect, normal mood Skin exam: Present: warm, dry, intact, normal color. Absent: rash <Jill Holden - Last Filed: 02/11/23 23:06> - General Exam Comments Initial Comments: Visual Physical Exam Vital signs reviewed General: Well-appearing, nontoxic, no acute distress. Head: Normocephalic, atraumatic Eyes: PERRLA, EOMI ENT: Airway patent Chest: Nonlabored breathing Skin: No visual rash, normal skin tone Neuro: Alert and oriented 3 Musculoskeletal: No gross abnormalities I performed the quick note portion of this exam, verbal signature Trinidad Taveras PA-C (Trinidad Taveras) Course Vital Signs 02/11/23 14:50 Temperature 97.8 F Pulse Rate 70 Respiratory 18 Rate Blood Pressure 105/66 O2 Sat by Pulse 98 Oximetry Medical Decision Making - Lab Data Result diagrams: 02/11/23 16:45 02/11/23 16:45 <Jill Holden - Last Filed: 02/11/23 23:06> - Medical Decision Making EKG taken at 20:05, interpreted by myself Electronic ventricular pacemaker Ventricular rate 55, MI interval 147, QRS duration 94, QTC 425 Was pt. sent in by a medical professional or institution ([facility], [employer], urgent care, hospital, or residential...) When possible be specific @ -No Did you speak to anyone other than the patient for history (EMS, parent, family, police, friend...)? What history was obtained from this source @ -No Did you review nursing and triage notes (agree or disagree)? Why? @ -I reviewed and agree with nursing and triage notes Were old charts reviewed (outside hosp., previous admission, EMS record, old EKG, old radiological studies, urgent care reports/EKG's, residential records)? Report findings @ -No old charts were reviewed Differential Diagnosis (chest pain, altered mental status, abdominal pain women, abdominal pain men, vaginal bleeding, weakness, fever, dyspnea, syncope, headache, dizziness, GI bleed, back pain, seizure, CVA, palpatations, mental health)? @ -not applicable EKG interpreted by me (3pts min.). @ -As above X-rays interpreted by me (1pt min.). @ -No acute osseous abnormality of the pelvis, bilateral hips, right femur, right knee, right foot. No acute cardiopulmonary process CT interpreted by me (1pt min.). @ -None done U/S interpreted by me (1pt. min.). @ -None done What testing was considered but not performed or refused? (CT, X-rays, U/S, labs)? Why? @ -None What meds were considered but not given or refused? Why? @ -None Did you discuss the management of the patient with other professionals (professionals i.e. , PA, SALVAGE WORKER, lab, RT, psych nurse, psychiatric social worker, environmental services worker, teacher, front desk officer, case management assistant)? Give summary @ -No Was smoking cessation discussed for >3mins.? @ -No Was critical care preformed (if so, how long)? @ -No Were there social determinants of health that impacted care today? How? (Homelessness, low income, unemployed, alcoholism, drug addiction, transportation, low edu. Level, literacy, decrease access to med. care, long-term, rehab)? @ -No Was there de-escalation of care discussed even if they declined (Discuss DNR or withdrawal of care, Hospice)? DNR status @ -No What co-morbidities impacted this encounter? (DM, HTN, Smoking, COPD, CAD, Cancer, CVA, ARF, Chemo, Hep., AIDS, mental health diagnosis, sleep apnea, morbid obesity)? @ -None Was patient admitted / discharged? Hospital course, mention meds given and route, prescriptions, significant lab abnormalities, going to OR and other pertinent info. @ -Patient presents for weakness. Laboratory studies obtained significant for leukopenia at 3.4 which is similar to previous visit at 3.85. There is mild thrombopenia at 144. Kidney function consistent with chronic kidney disease. Other laboratory studies were relatively unremarkable. Chest x-ray interpreted by myself show no acute process. Other xrays interpreted by myself showing no acute osseous abnormality. Physical exam is unremarkable no traumatic injury. No neurological deficit. Discussed results with patient. At this time there are no diagnostic studies to explain patient's symptoms. Her pain is improved after treatment. Patient has cane and walker at home which she is encouraged to prevent falls. She will follow-up with primary care provider. Discharged in stable condition Undiagnosed new problem with uncertain prognosis? @ -No Drug Therapy requiring intensive monitoring for toxicity (Heparin, Nitro, Insulin, Cardizem)? @ -No Were any procedures done? @ -No Diagnosis/symptom? @ -Weakness, fall, multiple injuries Acute, or Chronic, or Acute on Chronic? @ acute Uncomplicated (without systemic symptoms) or Complicated (systemic symptoms)? @ -uncomplicated Side effects of treatment? @ -No Exacerbation, Progression, or Severe Exacerbation? @ -No] Poses a threat to life or bodily function? How? (Chest pain, [place], [place], pneumonia, PE, COPD, DKA, ARF, appy, cholecystitis, CVA, Diverticulitis, Homicidal, Suicidal, threat to staff... and all critical care pts) @ -[No] Dr. Deluca is my attending (Jill Holden) - Lab Data Lab Results 02/11/23 02/11/23 02/11/23 Range/Units 16:45 16:45 16:45 WBC 3.4 L (3.8-10.6) k/uL RBC 3.58 L (3.80-5.40) m/uL Hgb 11.7 (11.4-16.0) gm/dL Hct 36.6 (34.0-46.0) % MCV 102.2 H (80.0-100.0) fL MCH 32.6 (25.0-35.0) pg MCHC 31.9 (31.0-37.0) g/dL RDW 12.9 (11.5-15.5) % Plt Count 144 L (150-450) k/uL MPV 8.2 Neutrophils % 61 % Lymphocytes % 28 % Monocytes % 7 % Eosinophils % 2 % Basophils % 0 % Neutrophils # 2.1 (1.3-7.7) k/uL Lymphocytes # 0.9 L (1.0-4.8) k/uL Monocytes # 0.2 (0-1.0) k/uL Eosinophils # 0.1 (0-0.7) k/uL Basophils # 0.0 (0-0.2) k/uL Macrocytosis Slight Sodium 143 (137-145) mmol/L Potassium 3.7 (3.5-5.1) mmol/L Chloride 114 H (98-107) mmol/L Carbon Dioxide 23 (22-30) mmol/L Anion Gap 6 mmol/L BUN 19 H (7-17) mg/dL Creatinine 1.07 H (0.52-1.04) mg/dL Est GFR (CKD-EPI)AfAm 67 (>60 ml/min/1.73 sqM) Est GFR (CKD-EPI)NonAf 58 (>60 ml/min/1.73 sqM) Glucose 180 H (74-99) mg/dL Calcium 9.0 (8.4-10.2) mg/dL Total Bilirubin 0.5 (0.2-1.3) mg/dL AST 89 H (14-36) U/L ALT 16 (4-34) U/L Alkaline Phosphatase 102 (38-126) U/L Total Protein 6.0 L (6.3-8.2) g/dL Albumin 3.4 L (3.5-5.0) g/dL Influenza Type A (PCR) Not Detected (Not Detectd) Influenza Type B (PCR) Not Detected (Not Detectd) RSV (PCR) Not Detected (Not Detectd) SARS-CoV-2 (PCR) Not Detected (Not Detectd) Disposition <Trinidad Taveras - Last Filed: 02/11/23 16:22> Is patient prescribed a controlled substance at d/c from ED?: No <Jill Holden - Last Filed: 02/11/23 23:06> Clinical Impression: Fall, Weakness, Multiple injuries Disposition: HOME SELF-CARE Condition: Good Instructions (If sedation given, give patient instructions): Weakness (ED) Additional Instructions: I recommend using your walker or cane to prevent falls. Follow-up with primary care provider in one to 2 days. Return to the emergency department experience new, concerning, or worsening symptoms. Referrals: Caroline Munoz MD [REFERRING] - 1-2 days
[2023-02-11] MEDS ORDERED: SODIUM CHLORIDE 0.9% 1,000 ML IV STA (17:00)
[2023-02-11 17:07] LABS: Basophils % (A) 0 %; Eosinophils # (A) 0.1 k/uL (0-0.7); Eosinophils % (A) 2 %; HCT 36.6 % (34.0-46.0); HGB 11.7 gm/dL (11.4-16.0); Lymphocytes # (A) 0.9 k/uL (1.0-4.8); Lymphocytes % (A) 28 %; MCH 32.6 pg (25.0-35.0); MCHC 31.9 g/dL (31.0-37.0); MCV 102.2 fL (80.0-100.0); Macrocytosis Slight; Mean Platelet Volume 8.2; Monocytes # (A) 0.2 k/uL (0-1.0); Monocytes % (A) 7 %; Neutrophils # (A) 2.1 k/uL (1.3-7.7); Neutrophils % (A) 61 %; Platelet Count 144 k/uL (150-450); RBC 3.58 m/uL (3.80-5.40); RDW 12.9 % (11.5-15.5); WBC 3.4 k/uL (3.8-10.6)
[2023-02-11] MEDS ORDERED: KETOROLAC 15 MG/ML 1 ML VIAL IVP STA (17:48)
[2023-02-11 18:09] LABS: ALT 16 U/L (4-34); AST 89 U/L (14-36); African American GFR (CKD) 67 (>60 ml/min/1.73 sqM); Albumin 3.4 g/dL (3.5-5.0); Alkaline Phosphatase 102 U/L (38-126); Anion Gap 6 mmol/L; Blood Urea Nitrogen 19 mg/dL (7-17); Carbon Dioxide 23 mmol/L (22-30); Chloride 114 mmol/L (98-107); Glucose 180 mg/dL (74-99); Non-African American GFR(CKD) 58 (>60 ml/min/1.73 sqM); Potassium 3.7 mmol/L (3.5-5.1); Sodium 143 mmol/L (137-145); Total Bilirubin 0.5 mg/dL (0.2-1.3)
--- NOTE | 2023-02-11 18:21 | CT ---
EXAMINATION TYPE: CT brain wo con DATE OF EXAM: 02/11/2023 COMPARISON: 01/01/2021 INDICATION: Fall 3 days ago and weakness. DLP: 1143.4 mGycm, Automated exposure control for dose reduction was used. CONTRAST: None CT of the brain is performed utilizing 3 mm thick sections through the posterior fossa and 3 mm thick sections through the remaining calvarium. Study is performed within 24 hours of arrival to the hosp ital. No abnormal hyperdensity is present to suggest an acute intracranial hemorrhage. No mass lesion is evident. Bilateral basal ganglia stimulator leads are present. These enter from the frontal regions. No acute infarcts are evident. Ventricles and sulci are appropriate for the patient age. Paranasal sinuses and mastoid air cells within the [id number] are clear. IMPRESSION: 1. No acute intracranial process. 2. Stimulator leads remain present in stable position.
--- NOTE | 2023-02-11 19:58 | XR ---
EXAMINATION TYPE: XR chest 2V DATE OF EXAM: 02/11/2023 COMPARISON: 12/07/2019 INDICATION: Weakness right-sided pain after fall TECHNIQUE: Frontal and lateral views of the chest are obtained. FINDINGS: The heart size is normal. The pulmonary vasculature is normal. The lungs are clear. Electronic devices are overlying the bilateral chest ayala. Stimulator leads ar e within the thoracic region. IMPRESSION: 1. No acute pulmonary process.
--- NOTE | 2023-02-11 20:06 | XR ---
EXAMINATION TYPE: XR femur RT DATE OF EXAM: 02/11/2023 COMPARISON: None HISTORY: Fall, pain TECHNIQUE: 2 view right femur FINDINGS: Femoral head articulates with the acetabulum. No acute fracture or dislocation is evident. Right knee prosthesis is present. Follow up exams can be performed 7-10 days from acute trauma for continued pain. IMPRESSION: 1. No acute osseous abnormality right femur
--- NOTE | 2023-02-11 20:08 | XR ---
EXAMINATION TYPE: XR Hip Bilateral and AP pelvis DATE OF EXAM: 02/11/2023 COMPARISON: None HISTORY: AP pelvis TECHNIQUE: AP abdomen 2 view bilateral hips FINDINGS: Femoral heads articulate with the acetabulum. Mild joint space narrowing is present on the left. Symphysis pubis and sacroiliac joints are normal. No acute fractures are evident. Electronic de vice overlies the left abdomen. Femoral heads articulate with the acetabulum. No acute fractures are evident. IMPRESSION: 1. No acute osseous abnormality bilateral hips. 2. Mild Degenerative joint changes bilaterally hips.
--- NOTE | 2023-02-11 20:09 | XR ---
EXAMINATION TYPE: XR foot complete RT DATE OF EXAM: 02/11/2023 COMPARISON: None HISTORY: Pain following fall TECHNIQUE: 3 view right foot FINDINGS: No acute fracture or dislocation is evident. Joint spaces are preserved. Soft tissues are n ormal. Follow up exams can be performed 7-10 days from acute trauma for continued pain. IMPRESSION: 1. No acute osseous abnormality right foot
== END 2023-02-11 21:56 | disposition home or self-care (01) ==
LOC: EC 14:40
DX: R53.1 Weakness (principal); J44.9 Chronic obstructive pulmonary disease, unspecified; E78.5 Hyperlipidemia, unspecified; K21.9 Gastro-esophageal reflux disease without esophagitis; M19.90 Unspecified osteoarthritis, unspecified site; I12.9 Hypertensive chronic kidney disease with stage 1 through stage 4 chronic kidney disease, or unspecified chronic kidney disease; N18.9 Chronic kidney disease, unspecified; F41.9 Anxiety disorder, unspecified; Z87.891 Personal history of nicotine dependence; Z88.8 Allergy status to other drugs, medicaments and biological substances; Z79.899 Other long term (current) drug therapy; Z79.51 Long term (current) use of inhaled steroids; Z20.822 Contact with and (suspected) exposure to COVID-19; W19.XXXA Unspecified fall, initial encounter
CPT/HCPCS: 36415; 93005; 80053; 85025; 87636; 73521; 73552; 73630; 71046; 70450; 99285; 96374; 96361; J1885